=== PATIENT | female | born 1965 | race Asian ===

== ENCOUNTER 2019-03-19 14:26 | Inpatient (IN) | payer BC ==
[~2019-03-19] VITALS: Ht 152.4 cm; Wt 40.8 kg
[~2019-03-19 14:26] MED LIST: ASPI-1182 PO; LINA5TAB PO; LOVA20 PO; METO25 PO; SIMV-259 PO
[2019-03-19] MEDS ORDERED: SODIUM CHLORIDE 0.9% 1,000 ML IV ONE ×3 (15:30→20:00)
[2019-03-19] MEDS ORDERED: ACETAMINOPHEN 325 MG TABLET PO ONE (15:30)
[2019-03-19] MEDS ORDERED: ONDANSETRON HCL 4 MG/2 ML VIAL IVP ONE (15:30)
[2019-03-19 15:35] LABS: GLUCOSE,POINT OF CARE 144 MG/DL (70-110)
[2019-03-19 15:48] LABS: BASOPHILS % (AUTO) 0.3 % (0.0-2.0); EOSINOPHILS % (AUTO) 0.2 % (1.0-6.0); HEMATOCRIT 39.9 % (36-46); HEMOGLOBIN 12.9 g/dL (12.0-16.0); LYMPHOCYTES # (AUTO) 1.7 K/uL (1.0-4.8); LYMPHOCYTES % (AUTO) 20.5 % (22.0-44.0); MEAN CORPUSCULAR HEMOGLOBIN 26.2 pg (26.0-34.0); MEAN CORPUSCULAR HGB CONC 32.2 G/dL (31.0-37.0); MEAN CORPUSCULAR VOLUME 81 fL (80-100); MONOCYTES # (AUTO) 0.6 K/uL (0.1-1.0); MONOCYTES % (AUTO) 7.6 % (2.0-9.0); NEUTROPHILS # (AUTO) 5.8 K/uL (1.8-7.7); NEUTROPHILS % (AUTO) 71.4 % (40.0-70.0); PLATELET COUNT (AUTO) 160 K/uL (150-450); RED BLOOD CELL COUNT(AUTO) 4.92 MIL/uL (4.00-5.20); RED CELL DISTRIBUTION WIDTH 13.7 % (11.5-14.5)
[2019-03-19 16:09] LABS: ALANINE AMINOTRANSFERASE 76 U/L (12-78); ALBUMIN 3.9 g/dL (3.4-5.0); ALKALINE PHOSPHATASE 94 U/L (46-116); ANION GAP 14 mmol/L (8-16); ASPARTATE AMINOTRANSFERASE 50 U/L (15-37); CARBON DIOXIDE 24 mmol/L (22-29); CHLORIDE 105 mmol/L (98-107); CREATININE 0.58 mg/dL (0.60-1.30); GLOMERULAR FILTR. RATE CALC > 60 mL/min (>60); GLUCOSE,RANDOM 161 mg/dL (70-110); LIPASE 72 U/L (73-393); POTASSIUM 4.1 mmol/L (3.5-5.1); SODIUM SERUM 143 mmol/L (136-145); TOTAL PROTEIN, SERUM 7.4 g/dL (6.4-8.2); UREA NITROGEN, BLOOD 15 mg/dL (7-18)
[2019-03-19 16:20] LABS: BILIRUBIN,TOTAL 1.6 mg/dL (0.1-1.0); CALCIUM, TOTAL 10.2 mg/dL (8.8-10.5)
[2019-03-19 17:51] LABS: APPEARANCE,URINE CLEAR (CLEAR); BILIRUBIN,URINE NEGATIVE (NEGATIVE); GLUCOSE, URINE (UA) 100 mg/dL (NEGATIVE); KETONES,URINE >=80 mg/dL (NEGATIVE); LEUKOCYTE ESTERASE ,URINE NEGATIVE (NEGATIVE); NITRATE,URINE NEGATIVE (NEGATIVE); OCCULT BLOOD,URINE TRACE (NEGATIVE); PROTEIN,URINE POS 1+ (NEGATIVE); UROBILINOGEN,URINE 0.2 mg/dL (<=1.0)
[2019-03-19 18:02] LABS: BACTERIA,URINE None Seen /HPF (None Seen); RBC,URINE 0-2 /HPF (0-2); SQUAMOUS EPITHELIAL CELL,UR Moderate /LPF (None Seen); WBC,URINE 0-2 /HPF (0-5)
[2019-03-19 19:25] LABS: THYROID STIMULATING HORMONE < 0.01 uIU/mL (0.36-3.74)
[2019-03-19] MEDS ORDERED: PROPYLTHIOURACIL 50 MG TABLET PO ONE (19:30)
[2019-03-19] MEDS ORDERED: METOPROLOL TARTRATE 5 MG/5 ML VIAL IVP ONE (19:30)
[2019-03-19] MEDS ORDERED: HYDROCORTISONE SOD SUCC 100 MG/2 ML VIAL IVP ONE (19:45)
[2019-03-19] MEDS ORDERED: ONDANSETRON HCL 4 MG/2 ML VIAL IVP PRN (20:00)
[2019-03-19] MEDS ORDERED: ACETAMINOPHEN 325 MG TABLET PO PRN (20:00)
[2019-03-19 22:28] VITALS: BP 158/79
[2019-03-20] VITALS (9 sets, daily range): BP systolic 119–163; BP diastolic 54–99
[2019-03-20] MEDS: METOPROLOL TARTRATE 5 MG/5 ML VIAL IVP PRN ×2 (01:05→09:10)
[2019-03-20] MEDS: POTASSIUM IODIDE 5%/IODINE 10% SOLUTION 14 ML PO SCH ×2 (01:24→09:10)
[2019-03-20 08:41] LABS: GLUCOMETER DEV NAME(LOC) 5N.2; GLUCOSE,POINT OF CARE 98 MG/DL (70-110)
[2019-03-20] MEDS: PROPRANOLOL HCL 60 MG SR CAPSULE PO SCH (12:01)
[2019-03-20 12:21] LABS: GLUCOMETER DEV NAME(LOC) 5N.2; GLUCOSE,POINT OF CARE 132 MG/DL (70-110)
[2019-03-20 19:46] LABS: GLUCOMETER DEV NAME(LOC) 5N.2; GLUCOSE,POINT OF CARE 145 MG/DL (70-110)
[2019-03-20] MEDS: METHIMAZOLE 5 MG TABLET PO SCH (20:52)
[2019-03-21 01:51] LABS: GLUCOMETER DEV NAME(LOC) 5N.1; GLUCOSE,POINT OF CARE 179 MG/DL (70-110)
[2019-03-21 04:55] VITALS: BP 151/68
[2019-03-21 07:09] LABS: BASOPHILS % (AUTO) 0.4 % (0.0-2.0); EOSINOPHILS % (AUTO) 3.5 % (1.0-6.0); HEMATOCRIT 30.2 % (36-46); HEMOGLOBIN 10.5 g/dL (12.0-16.0); LYMPHOCYTES # (AUTO) 3.1 K/uL (1.0-4.8); LYMPHOCYTES % (AUTO) 46.6 % (22.0-44.0); MEAN CORPUSCULAR HEMOGLOBIN 27.8 pg (26.0-34.0); MEAN CORPUSCULAR HGB CONC 34.9 G/dL (31.0-37.0); MEAN CORPUSCULAR VOLUME 80 fL (80-100); MONOCYTES # (AUTO) 0.6 K/uL (0.1-1.0); MONOCYTES % (AUTO) 8.7 % (2.0-9.0); NEUTROPHILS # (AUTO) 2.7 K/uL (1.8-7.7); NEUTROPHILS % (AUTO) 40.8 % (40.0-70.0); PLATELET COUNT (AUTO) 123 K/uL (150-450); RED CELL DISTRIBUTION WIDTH 13.8 % (11.5-14.5)
[2019-03-21 07:34] LABS: ALANINE AMINOTRANSFERASE 101 U/L (12-78); ALBUMIN 2.9 g/dL (3.4-5.0); ALKALINE PHOSPHATASE 73 U/L (46-116); ANION GAP 11 mmol/L (8-16); ASPARTATE AMINOTRANSFERASE 105 U/L (15-37); BILIRUBIN,TOTAL 1.5 mg/dL (0.1-1.0); CALCIUM, TOTAL 9.1 mg/dL (8.8-10.5); CARBON DIOXIDE 24 mmol/L (22-29); CHLORIDE 107 mmol/L (98-107); CREATININE 0.38 mg/dL (0.60-1.30); GLOMERULAR FILTR. RATE CALC > 60 mL/min (>60); GLUCOSE,RANDOM 104 mg/dL (70-110); SODIUM SERUM 142 mmol/L (136-145); TOTAL PROTEIN, SERUM 5.5 g/dL (6.4-8.2); UREA NITROGEN, BLOOD 9 mg/dL (7-18)
[2019-03-21 07:51] VITALS: BP 154/85
[2019-03-21] MEDS: PROPRANOLOL HCL 60 MG SR CAPSULE PO SCH (08:01)
[2019-03-21] MEDS: METHIMAZOLE 5 MG TABLET PO SCH ×2 (08:01→20:58)
[2019-03-21] MEDS ORDERED: MAGNESIUM SULFATE 4 GM/WATER 100 ML IV PRN (08:15)
[2019-03-21] MEDS: POTASSIUM CHLORIDE 20 MEQ ER TABLET PO PRN (08:32)
[2019-03-21 08:35] LABS: GLUCOMETER DEV NAME(LOC) 5N.1; GLUCOSE,POINT OF CARE 94 MG/DL (70-110)
[2019-03-21] MEDS ORDERED: METHIMAZOLE 5 MG TABLET PO SCH (09:00)
[2019-03-21] MEDS ORDERED: SODIUM CHLORIDE 0.9% 100 ML ONE (09:23)
[2019-03-21] MEDS: MAGNESIUM SULFATE 2 GM/WATER 50 ML IV PRN (09:27)
[2019-03-21 11:05] VITALS: BP 157/95
[2019-03-21 13:01] LABS: GLUCOMETER DEV NAME(LOC) 5N.2; GLUCOSE,POINT OF CARE 198 MG/DL (70-110)
[2019-03-21 13:33] VITALS: BP 149/88
[2019-03-21] MEDS ORDERED: PROPRANOLOL HCL 60 MG SR CAPSULE PO ONE (14:00)
[2019-03-21 15:34] VITALS: BP 135/63
[2019-03-21] MEDS ORDERED: AMOX250C4 PO (16:35)
[2019-03-21] MEDS ORDERED: METR500 PO (16:35)
[2019-03-21 17:56] LABS: GLUCOMETER DEV NAME(LOC) 5N.1; GLUCOSE,POINT OF CARE 152 MG/DL (70-110)
[2019-03-21 20:25] VITALS: BP 147/77
[2019-03-22] VITALS (7 sets, daily range): BP systolic 133–158; BP diastolic 63–109
[2019-03-22 07:21] LABS: GLUCOMETER DEV NAME(LOC) 5N.1; GLUCOSE,POINT OF CARE 166 MG/DL (70-110)
[2019-03-22 07:31] LABS: BASOPHILS % (AUTO) 0.7 % (0.0-2.0); EOSINOPHILS % (AUTO) 2.4 % (1.0-6.0); HEMATOCRIT 35.1 % (36-46); HEMOGLOBIN 11.5 g/dL (12.0-16.0); LYMPHOCYTES # (AUTO) 1.9 K/uL (1.0-4.8); LYMPHOCYTES % (AUTO) 36.2 % (22.0-44.0); MEAN CORPUSCULAR HEMOGLOBIN 26.4 pg (26.0-34.0); MEAN CORPUSCULAR HGB CONC 32.9 G/dL (31.0-37.0); MEAN CORPUSCULAR VOLUME 80 fL (80-100); MONOCYTES # (AUTO) 0.5 K/uL (0.1-1.0); MONOCYTES % (AUTO) 9.4 % (2.0-9.0); NEUTROPHILS # (AUTO) 2.7 K/uL (1.8-7.7); NEUTROPHILS % (AUTO) 51.3 % (40.0-70.0); PLATELET COUNT (AUTO) 131 K/uL (150-450); RED BLOOD CELL COUNT(AUTO) 4.38 MIL/uL (4.00-5.20); RED CELL DISTRIBUTION WIDTH 13.7 % (11.5-14.5)
[2019-03-22 07:52] LABS: ALANINE AMINOTRANSFERASE 143 U/L (12-78); ALBUMIN 3.3 g/dL (3.4-5.0); ALKALINE PHOSPHATASE 89 U/L (46-116); ANION GAP 9 mmol/L (8-16); ASPARTATE AMINOTRANSFERASE 93 U/L (15-37); BILIRUBIN,TOTAL 1.9 mg/dL (0.1-1.0); CALCIUM, TOTAL 9.5 mg/dL (8.8-10.5); CARBON DIOXIDE 29 mmol/L (22-29); CHLORIDE 104 mmol/L (98-107); CREATININE 0.38 mg/dL (0.60-1.30); GLOMERULAR FILTR. RATE CALC > 60 mL/min (>60); GLUCOSE,RANDOM 187 mg/dL (70-110); POTASSIUM 3.9 mmol/L (3.5-5.1); SODIUM SERUM 142 mmol/L (136-145); UREA NITROGEN, BLOOD 9 mg/dL (7-18)
[2019-03-22] MEDS: ONDANSETRON HCL 4 MG/2 ML VIAL IVP PRN ×2 (09:04→18:35)
[2019-03-22] MEDS: PROPRANOLOL HCL 80 MG PO SCH (10:26)
[2019-03-22] MEDS: MAGNESIUM SULFATE 2 GM/WATER 50 ML IV PRN (10:26)
[2019-03-22] MEDS: METHIMAZOLE 5 MG TABLET PO SCH ×2 (10:26→20:21)
[2019-03-22 11:26] LABS: GLUCOMETER DEV NAME(LOC) 5N.2; GLUCOSE,POINT OF CARE 166 MG/DL (70-110)
[2019-03-22 20:02] LABS: GLUCOMETER DEV NAME(LOC) 5N.1; GLUCOSE,POINT OF CARE 172 MG/DL (70-110)
[2019-03-22 20:02] LABS: GLUCOMETER DEV NAME(LOC) 5N.1; GLUCOSE,POINT OF CARE 227 MG/DL (70-110)
[2019-03-23 03:57] LABS: GLUCOMETER DEV NAME(LOC) 5N.2; GLUCOSE,POINT OF CARE 171 MG/DL (70-110)
[2019-03-23 05:42] VITALS: BP 185/98
[2019-03-23] MEDS ORDERED: CloNIDine HCL 0.1 MG TABLET PO ONE (06:15)
[2019-03-23 06:21] LABS: BASOPHILS % (AUTO) 0.5 % (0.0-2.0); EOSINOPHILS % (AUTO) 1.8 % (1.0-6.0); HEMOGLOBIN 12.6 g/dL (12.0-16.0); MEAN CORPUSCULAR HEMOGLOBIN 26.2 pg (26.0-34.0); MEAN CORPUSCULAR HGB CONC 32.4 G/dL (31.0-37.0); MEAN CORPUSCULAR VOLUME 81 fL (80-100); MONOCYTES # (AUTO) 1.1 K/uL (0.1-1.0); MONOCYTES % (AUTO) 10.3 % (2.0-9.0); NEUTROPHILS # (AUTO) 5.5 K/uL (1.8-7.7); NEUTROPHILS % (AUTO) 50.4 % (40.0-70.0); PLATELET COUNT (AUTO) 157 K/uL (150-450); RED BLOOD CELL COUNT(AUTO) 4.81 MIL/uL (4.00-5.20); RED CELL DISTRIBUTION WIDTH 13.7 % (11.5-14.5)
[2019-03-23 07:07] LABS: GLUCOMETER DEV NAME(LOC) 5N.1; GLUCOSE,POINT OF CARE 178 MG/DL (70-110)
[2019-03-23 07:16] LABS: ALANINE AMINOTRANSFERASE 210 U/L (12-78); ALBUMIN 3.7 g/dL (3.4-5.0); ALKALINE PHOSPHATASE 101 U/L (46-116); ANION GAP 12 mmol/L (8-16); ASPARTATE AMINOTRANSFERASE 142 U/L (15-37); CARBON DIOXIDE 27 mmol/L (22-29); CHLORIDE 102 mmol/L (98-107); CREATININE 0.47 mg/dL (0.60-1.30); GLOMERULAR FILTR. RATE CALC > 60 mL/min (>60); GLUCOSE,RANDOM 156 mg/dL (70-110); POTASSIUM 3.2 mmol/L (3.5-5.1); SODIUM SERUM 141 mmol/L (136-145); TOTAL PROTEIN, SERUM 6.6 g/dL (6.4-8.2); UREA NITROGEN, BLOOD 12 mg/dL (7-18)
[2019-03-23 07:37] VITALS: BP 143/73
[2019-03-23] MEDS: MAGNESIUM OXIDE 400 MG TABLET PO PRN ×3 (08:57→23:47)
[2019-03-23] MEDS: POTASSIUM CHLORIDE 20 MEQ ER TABLET PO PRN (08:57)
[2019-03-23] MEDS: METHIMAZOLE 5 MG TABLET PO SCH ×2 (08:57→20:24)
[2019-03-23] MEDS: PROPRANOLOL HCL 80 MG PO SCH (08:57)
[2019-03-23] MEDS: POTASSIUM CHL 10 MEQ/WATER 50 ML IV PRN ×3 (09:15→13:59)
[2019-03-23 10:57] VITALS: BP 137/96
[2019-03-23 11:41] LABS: PHOSPHORUS 4.1 mg/dL (2.5-4.9)
[2019-03-23] MEDS ORDERED: AMOX500C2 PO (12:53)
[2019-03-23 13:06] LABS: GLUCOMETER DEV NAME(LOC) 5N.2; GLUCOSE,POINT OF CARE 225 MG/DL (70-110)
[2019-03-23 15:23] VITALS: BP 149/90
[2019-03-23 17:57] LABS: GLUCOMETER DEV NAME(LOC) 5N.2; GLUCOSE,POINT OF CARE 213 MG/DL (70-110)
[2019-03-23 19:50] VITALS: BP 137/74
[2019-03-24 00:23] VITALS: BP 143/69
[2019-03-24 05:30] VITALS: BP 173/85
[2019-03-24 06:22] LABS: BASOPHILS % (AUTO) 0.4 % (0.0-2.0); EOSINOPHILS % (AUTO) 2.2 % (1.0-6.0); HEMATOCRIT 36.9 % (36-46); HEMOGLOBIN 11.9 g/dL (12.0-16.0); LYMPHOCYTES # (AUTO) 3.7 K/uL (1.0-4.8); LYMPHOCYTES % (AUTO) 51.2 % (22.0-44.0); MEAN CORPUSCULAR HEMOGLOBIN 26.1 pg (26.0-34.0); MEAN CORPUSCULAR HGB CONC 32.3 G/dL (31.0-37.0); MEAN CORPUSCULAR VOLUME 81 fL (80-100); MONOCYTES # (AUTO) 0.6 K/uL (0.1-1.0); NEUTROPHILS # (AUTO) 2.7 K/uL (1.8-7.7); NEUTROPHILS % (AUTO) 38.2 % (40.0-70.0); PLATELET COUNT (AUTO) 139 K/uL (150-450); RED BLOOD CELL COUNT(AUTO) 4.55 MIL/uL (4.00-5.20); RED CELL DISTRIBUTION WIDTH 13.6 % (11.5-14.5)
[2019-03-24] MEDS ORDERED: AmLODIPine BESYLATE 2.5 MG TABLET PO ONE (07:00)
[2019-03-24 07:02] LABS: ALANINE AMINOTRANSFERASE 159 U/L (12-78); ALBUMIN 3.4 g/dL (3.4-5.0); ALKALINE PHOSPHATASE 91 U/L (46-116); ANION GAP 7 mmol/L (8-16); ASPARTATE AMINOTRANSFERASE 70 U/L (15-37); BILIRUBIN,TOTAL 1.7 mg/dL (0.1-1.0); CARBON DIOXIDE 30 mmol/L (22-29); CHLORIDE 103 mmol/L (98-107); CREATININE 0.48 mg/dL (0.60-1.30); GLOMERULAR FILTR. RATE CALC > 60 mL/min (>60); GLUCOSE,RANDOM 166 mg/dL (70-110); POTASSIUM 3.3 mmol/L (3.5-5.1); SODIUM SERUM 140 mmol/L (136-145); TOTAL PROTEIN, SERUM 6.3 g/dL (6.4-8.2); UREA NITROGEN, BLOOD 8 mg/dL (7-18)
[2019-03-24 07:32] VITALS: BP 169/74
[2019-03-24] MEDS: POTASSIUM CHLORIDE 20 MEQ ER TABLET PO PRN (08:06)
[2019-03-24] MEDS: MAGNESIUM OXIDE 400 MG TABLET PO PRN ×3 (08:06→13:33)
[2019-03-24] MEDS: METHIMAZOLE 5 MG TABLET PO SCH (08:07)
[2019-03-24] MEDS ORDERED: PROPRANOLOL HCL 60 MG SR CAPSULE PO SCH (09:00)
[2019-03-24] MEDS ORDERED: PROP60SR PO (10:34)
[2019-03-24] MEDS ORDERED: METHI10 PO (10:34)
[2019-03-24] MEDS ORDERED: AMLO2.5T4 PO (10:34)
[2019-03-24 10:55] VITALS: BP 180/92
[2019-03-24] MEDS: METOPROLOL TARTRATE 5 MG/5 ML VIAL IVP PRN (10:57)
[2019-03-24 11:33] VITALS: BP 172/84
[2019-03-24 12:33] VITALS: BP 132/75
[2019-03-24] MEDS ORDERED: LinaGLIPtin 5 MG TABLET PO ONE (12:45)
[2019-03-24 20:46] LABS: GLUCOMETER DEV NAME(LOC) 5N.2; GLUCOSE,POINT OF CARE 154 MG/DL (70-110)
[2019-03-24 20:46] LABS: GLUCOMETER DEV NAME(LOC) 5N.2; GLUCOSE,POINT OF CARE 221 MG/DL (70-110)
[2019-03-24 20:46] LABS: GLUCOMETER DEV NAME(LOC) 5N.2; GLUCOSE,POINT OF CARE 185 MG/DL (70-110)
== END 2019-03-24 13:45 | disposition home or self-care (01) | DRG 644 ==
LOC: EMS 14:27 → 5S 20:00 → 5N 03-20 17:15
PROVIDERS: ADMIT Internal Medicine; ATTEND Internal Medicine
DX: E05.91 Thyrotoxicosis, unspecified with thyrotoxic crisis or storm (principal); E44.0 Moderate protein-calorie malnutrition; E11.9 Type 2 diabetes mellitus without complications; I10 Essential (primary) hypertension; E78.5 Hyperlipidemia, unspecified; E87.6 Hypokalemia; E83.42 Hypomagnesemia; Z90.710 Acquired absence of both cervix and uterus; E78.00 Pure hypercholesterolemia, unspecified; F41.9 Anxiety disorder, unspecified; D64.9 Anemia, unspecified; R00.0 Tachycardia, unspecified
CPT/HCPCS: 74176; 82948; 83735; 84100; 84132; 84439; 84443; 84445; 84481; 86376; 87081; 92610; 93005; 93306; J1720; J2405; J3475; J3480; J3490; J7030; J7050

== ENCOUNTER 2019-03-26 07:15 | Day surgery (SDC) | payer BC ==
[~2019-03-26] VITALS: Ht 152.4 cm; Wt 39.0 kg
[~2019-03-26 07:15] MED LIST changes: +AMLO2.5T4 PO; +METHI10 PO; -METO25 PO; +PROP60SR PO
[2019-03-26] MEDS ORDERED: METOPROLOL TARTRATE 5 MG/5 ML VIAL ONE (07:38)
[2019-03-26] MEDS ORDERED: METOPROLOL TARTRATE 50 MG TABLET ONE (07:38)
[2019-03-26] MEDS ORDERED: METOPROLOL TARTRATE 5 MG/5 ML VIAL IVP ONE (07:45)
[2019-03-26] MEDS ORDERED: METOPROLOL TARTRATE 50 MG TABLET PO ONE (07:45)
[2019-03-26 08:35] LABS: GLUCOMETER DEV NAME(LOC) SDS.; GLUCOSE,POINT OF CARE 167 MG/DL (70-110)
[2019-03-26] MEDS ORDERED: PROPRANOLOL HCL 80 MG PO ONE (08:45)
[2019-03-26] MEDS ORDERED: METHIMAZOLE 10 MG TABLET PO ONE (08:45)
[2019-03-26] MEDS ORDERED: PROPRANOLOL HCL 60 MG SR CAPSULE PO ONE (08:45)
== END 2019-03-26 09:25 | disposition home or self-care (01) ==
LOC: SURGERY 07:15 → EDSTATUS 09:00 → SURGERY 09:25
PROVIDERS: ATTEND Internal Medicine Cardiovascular Disease
DX: E11.9 Type 2 diabetes mellitus without complications (principal); I20.9 Angina pectoris, unspecified; I10 Essential (primary) hypertension; E05.90 Thyrotoxicosis, unspecified without thyrotoxic crisis or storm; Z79.899 Other long term (current) drug therapy; Z98.51 Tubal ligation status; Z53.8 Procedure and treatment not carried out for other reasons
CPT/HCPCS: 82962; 93005; J3490

== ENCOUNTER 2024-06-15 11:11 | Inpatient (IN) | payer BC, OTHER ==
[~2024-06-15] VITALS: Ht 152.4 cm; Wt 62.8 kg
[~2024-06-15 11:11] MED LIST changes: -AMLO2.5T4 PO; +AMLO2.5T96 PO; -ASPI-1182 PO; +ASPI-1444 PO; -LOVA20 PO; +LOVA20TA73 PO; +METH-387 PO; -METHI10 PO; +PROP60CA31 PO; -PROP60SR PO
[2024-06-15 11:38] LABS: COVID AG,FIA SOURCE NASAL SWAB
[2024-06-15 12:24] LABS: HEMATOCRIT 48.4 % (36-46); HEMOGLOBIN 15.4 g/dL (12.0-16.0); MEAN CORPUSCULAR HGB CONC 31.9 G/dL (31.0-37.0); MEAN CORPUSCULAR VOLUME 88 fL (80-100); PLATELET COUNT (AUTO) 127 K/uL (150-450); RED BLOOD CELL COUNT(AUTO) 5.51 MIL/uL (4.00-5.20); RED CELL DISTRIBUTION WIDTH 13.6 % (11.5-14.5); WHITE BLOOD COUNT (AUTO) 7.5 K/uL (4.5-11.0)
[2024-06-15 12:36] LABS: ANION GAP 29 mmol/L (8-16); CARBON DIOXIDE 14 mmol/L (22-29); CHLORIDE 82 mmol/L (98-107); CREATININE 2.01 mg/dL (0.60-1.30); GLOMERULAR FILTR. RATE CALC 25 mL/min (>60); LIPASE 11 U/L (16-77); SODIUM SERUM 125 mmol/L (136-145); UREA NITROGEN, BLOOD 28 mg/dL (7-18)
[2024-06-15 12:37] LABS: SARS-COV2 (COVID) ANTIGEN,FIA Negative (Negative)
[2024-06-15 12:38] LABS: INFLUENZA TYPE B NEGATIVE FOR TYPE B (NEGATIVE)
[2024-06-15 12:39] LABS: GLUCOSE,RANDOM 488 mg/dL (70-110); POTASSIUM 2.7 mmol/L (3.5-5.1)
[2024-06-15 12:42] LABS: BAND NEUTROPHILS % (MANUAL) 12 % (0-5); LYMPHOCYTES % (MANUAL) 24 % (22-44); MONOCYTES % (MANUAL) 1 % (2-9); RBC MORPHOLOGY COMMENT NORMAL RBC MORPH; SEGMENTED NEUTROPHILS % 63 % (40-70); TOTAL CELLS COUNTED 100
[2024-06-15 12:43] LABS: INFLUENZA TYPE A POSITIVE FOR TYPE A (NEGATIVE)
[2024-06-15] MEDS ORDERED: POTASSIUM CHLORIDE 40 MEQ in SODIUM CHLORIDE 0.9% 1,000 ML IV ONE (12:45)
[2024-06-15] MEDS ORDERED: INSULIN REGULAR, HUMAN 100 UNITS/ML IVP PRN (13:00)
[2024-06-15] MEDS ORDERED: SODIUM CHLORIDE 0.45% 1,000 ML IV PRN (13:00)
[2024-06-15] MEDS: SODIUM CHLORIDE 0.9% 1,000 ML IV SCH (13:00)
[2024-06-15] MEDS ORDERED: DEXTROSE 50%-WATER 25 GM/50 ML SYRINGE IVP PRN ×2 (13:00)
[2024-06-15] MEDS ORDERED: INSULIN LISPRO 100 UNITS/ML SQ PRN (13:00)
[2024-06-15] MEDS ORDERED: 0.9% SODIUM CHLORIDE 10 ML SYRINGE IVP PRN (13:00)
[2024-06-15] MEDS ORDERED: POTASSIUM CHL 20 MEQ/0.45% NS 1,000 ML IV PRN (13:00)
[2024-06-15 13:02] LABS: ACETONE,BLOOD TRACE (NEGATIVE)
[2024-06-15] MEDS: *CLINICAL-RX DOSING [ENTER DRUG IN COMMENTS] CLINICAL ONE (13:47)
[2024-06-15] MEDS: METOPROLOL TARTRATE 5 MG/5 ML VIAL IVP ONE (13:54)
[2024-06-15] MEDS: SODIUM CHLORIDE 0.9% 1,600 ML IV ONE (13:58)
[2024-06-15] MEDS: CefTRIAXone 1 GM/DEXTROSE 50 ML IV ONE (14:00)
[2024-06-15] MEDS ORDERED: AZITHROMYCIN 500 MG/NS 250 ML IV SCH (14:00)
[2024-06-15 14:11] LABS: FREE T4 (FREE THYROXINE) 1.85 ng/dL (0.76-1.46)
[2024-06-15] MEDS: OSELTAMIVIR PHOSPHATE 30 MG CAPSULE PO SCH (14:19)
[2024-06-15] MEDS: POTASSIUM CHL 10 MEQ/WATER 50 ML IV SCH (14:19)
[2024-06-15 14:52] LABS: APPEARANCE,URINE HAZY (CLEAR); BILIRUBIN,URINE NEGATIVE (NEGATIVE); COLOR,URINE LIGHT YELLOW (YELLOW); GLUCOSE, URINE (UA) >=1000 mg/dL (NEGATIVE); LEUKOCYTE ESTERASE ,URINE NEGATIVE (NEGATIVE); NITRATE,URINE NEGATIVE (NEGATIVE); OCCULT BLOOD,URINE SMALL (NEGATIVE); PH,URINE 5.5 (5.0-8.0); PROTEIN,URINE 100-200,SEE CONFIRM mg/dL (NEGATIVE); SPECIFIC GRAVITIY, URINE 1.011 (1.003-1.030); UROBILINOGEN,URINE <=1.0 mg/dL (<=1.0)
[2024-06-15 14:55] LABS: CREATININE,URINE RANDOM 44.2 mg/dL (30.0-125.0)
[2024-06-15 14:56] LABS: SULFOSALICYLIC ACID,URINE 2+ (Negative)
[2024-06-15 15:00] LABS: HEMOGLOBIN A1C 13.6 % (3.8-5.6)
[2024-06-15] MEDS: ACETAMINOPHEN 325 MG TABLET PO PRN (15:01)
[2024-06-15 15:03] LABS: RBC,URINE 0-2 /HPF (0-2); WBC,URINE None Seen /HPF (0-5)
[2024-06-15 15:04] LABS: BACTERIA,URINE None Seen /HPF (None Seen); SQUAMOUS EPITHELIAL CELL,UR Few /LPF (None Seen)
[2024-06-15 15:05] LABS: TROPONIN I-HIGH SENSITIVITY 27 ng/L (<51)
[2024-06-15] MEDS ORDERED: SODIUM CHLORIDE 0.9% 250 ML IV ONE (15:06)
[2024-06-15 15:08] LABS: ALANINE AMINOTRANSFERASE 15 U/L (12-78); ALBUMIN 2.2 g/dL (3.4-5.0); ALKALINE PHOSPHATASE 68 U/L (46-116); ANION GAP 21 mmol/L (8-16); ASPARTATE AMINOTRANSFERASE 19 U/L (15-37); BILIRUBIN,TOTAL 0.9 mg/dL (0.1-1.0); CALCIUM, TOTAL 8.1 mg/dL (8.8-10.5); CARBON DIOXIDE 18 mmol/L (22-29); CHLORIDE 89 mmol/L (98-107); CREATININE 1.68 mg/dL (0.60-1.30); GLOMERULAR FILTR. RATE CALC 31 mL/min (>60); LACTATE DEHYDROGENASE 292 U/L (81-234); LACTIC ACID 7.7 mmol/L (0.4-2.0); POTASSIUM 3.3 mmol/L (3.5-5.1); SODIUM SERUM 128 mmol/L (136-145); T4 (THYROXINE) 7.6 mcg/dL (4.7-13.3); THYROID STIMULATING HORMONE 0.14 uIU/mL (0.36-3.74); TOTAL PROTEIN, SERUM 6.3 g/dL (6.4-8.2); UREA NITROGEN, BLOOD 26 mg/dL (7-18)
[2024-06-15 15:10] LABS: GLUCOSE,RANDOM 430 mg/dL (70-110)
[2024-06-15] MEDS: *CLINICAL-CEFEPIME DOSING CLINICAL ONE (15:28)
[2024-06-15 15:35] VITALS: PULSE 139; RESP 44; O2SAT 97
[2024-06-15] MEDS: INSULIN REGULAR, HUMAN 100 UNITS/ML IVP ONE (15:47)
[2024-06-15] MEDS: INSULIN REGULAR, HUMAN 100 UNITS in SODIUM CHLORIDE 0.9% 99 ML IV PRN (15:47)
[2024-06-15] MEDS: SODIUM CHLORIDE 0.9% 250 ML IV ONE (15:48)
[2024-06-15 16:00] VITALS: BP 161/71; PULSE 143; PULSE 43; RESP 43; TEMP 102.8; O2SAT 98
[2024-06-15] MEDS: POTASSIUM CHLORIDE 40 MEQ in SODIUM CHLORIDE 0.45% 1,000 ML IV PRN (16:05)
[2024-06-15 16:24] LABS: ABG BASE EXCESS -11.5 mmol/L (-2.0-3.0); ABG CARBOXYHEMOGLOBIN 0.2 % (0.5-1.5); ABG HCO3 17.1 mmol/L (21.0-28.0); ABG METHEMOGLOBIN 0.2 % (0.0-1.5); ABG OXYGEN CONTENT 18.8 mL/dL (15.0-23.0); ABG OXYGEN SATURATION 95.6 % (94.0-98.0); ABG OXYHEMOGLOBIN 95.2 % (94.0-98.0); ABG PCO2 24 mmHg (32.0-45.0); ABG PH 7.366 (7.350-7.450); PO2, ARTERIAL BG 95.5 mmHg (83.0-108.0); SOURCE, BLOOD GAS ARTERIAL; TEMPERATURE, FAHRENHEIT, BG 102.6 FAHREN (96.0-98.6)
[2024-06-15] MEDS ORDERED: ETOMIDATE 2 MG/ML 10 ML VIAL ONE (16:32)
[2024-06-15 17:00] VITALS: PULSE 154; RESP 17; O2SAT 93
[2024-06-15 17:21] LABS: ALLEN TEST, BLOOD GAS Positive; O2 DEVICE,BLOOD GAS BIPAP (ROOM AIR); SITE, BLOOD GAS LFT RADIAL
[2024-06-15 17:22] LABS: INSPIRATORY TIME, BG 0.9 SEC; SPONTANEOUS VT, BG 388 ml
[2024-06-15] MEDS: ETOMIDATE 2 MG/ML 10 ML VIAL IVP ONE (17:58)
[2024-06-15] MEDS: FentaNYL CIT 1000MCG/0.9% NACL 100 ML IV PRN (18:02)
[2024-06-15] MEDS: ROCURONIUM BROMIDE 10 MG/ML 5 ML VIAL IVP ONE (18:17)
[2024-06-15] MEDS: PROPOFOL 1000 MG/ISO-OSM 100 ML IV PRN (18:18)
[2024-06-15] MEDS: DEXTROSE 5%-0.45% SODIUM CHL 1,000 ML IV PRN (19:37)
[2024-06-15 19:40] VITALS: PULSE 144; RESP 35; O2SAT 94
[2024-06-15 19:54] LABS: ABG BASE EXCESS -11.4 mmol/L (-2.0-3.0); ABG CARBOXYHEMOGLOBIN 0.4 % (0.5-1.5); ABG HCO3 16.1 mmol/L (21.0-28.0); ABG METHEMOGLOBIN 0.2 % (0.0-1.5); ABG OXYGEN CONTENT 19.3 mL/dL (15.0-23.0); ABG OXYGEN SATURATION 93.7 % (94.0-98.0); ABG OXYHEMOGLOBIN 93.1 % (94.0-98.0); ABG PCO2 42 mmHg (32.0-45.0); ABG TOTAL HEMOGLOBIN 14.7 G/dL (12.0-16.0); PO2, ARTERIAL BG 87.4 mmHg (83.0-108.0); SOURCE, BLOOD GAS ARTERIAL; TEMPERATURE, FAHRENHEIT, BG 101.8 FAHREN (96.0-98.6)
[2024-06-15 20:00] VITALS: BP 109/52; PULSE 141; RESP 35; TEMP 101.6; O2SAT 92
[2024-06-15] MEDS: SODIUM BICARBONATE [ADULT] 8.4% 50 MEQ/50 ML SYRINGE IVP ONE (20:15)
[2024-06-15] MEDS: POTASSIUM CHLORIDE 10% 40 MEQ/30 ML LIQUID UDCUP GT ONE (20:36)
[2024-06-15 20:54] LABS: CALCIUM, TOTAL 7.8 mg/dL (8.8-10.5); CREATININE 2.01 mg/dL (0.60-1.30); MAGNESIUM 1.8 mg/dL (1.80-2.40); PHOSPHORUS 2.9 mg/dL (2.5-4.9); POTASSIUM 3.1 mmol/L (3.5-5.1)
[2024-06-15] MEDS ORDERED: DOCUSATE SODIUM 100 MG CAPSULE PO SCH (21:00)
[2024-06-15] MEDS ORDERED: METHIMAZOLE 10 MG TABLET PO SCH (21:00)
[2024-06-15 21:16] LABS: GLUCOMETER DEV NAME(LOC) ICUN.5; GLUCOSE,POINT OF CARE 232 MG/DL (70-110)
[2024-06-15 21:27] LABS: ABG A-A DIFF O2 578.8 mmHg (10-20.0); ALLEN TEST, BLOOD GAS Positive; O2 DEVICE,BLOOD GAS VENT (ROOM AIR); SITE, BLOOD GAS LFT RADIAL
[2024-06-15 21:28] LABS: PEEP,BG 8 cm H2O; VT, ABG 325 ml
[2024-06-15] MEDS: CHLORHEXIDINE GLUCONATE 2% TOWELETTE [2'S/6'S] TP SCH (21:54)
[2024-06-15] MEDS: DOCUSATE SODIUM 100 MG/10 ML LIQUID UDCUP NG SCH (21:54)
[2024-06-15] MEDS: POTASSIUM CHLORIDE 10% 40 MEQ/30 ML LIQUID UDCUP NG ONE (21:56)
[2024-06-15 22:19] LABS: ABG BASE EXCESS -8.5 mmol/L (-2.0-3.0); ABG CARBOXYHEMOGLOBIN 0.1 % (0.5-1.5); ABG HCO3 18.2 mmol/L (21.0-28.0); ABG METHEMOGLOBIN 0.2 % (0.0-1.5); ABG OXYGEN CONTENT 18.1 mL/dL (15.0-23.0); ABG OXYGEN SATURATION 90.2 % (94.0-98.0); ABG OXYHEMOGLOBIN 89.9 % (94.0-98.0); ABG PCO2 38 mmHg (32.0-45.0); ABG PH 7.294 (7.350-7.450); ABG TOTAL HEMOGLOBIN 14.3 G/dL (12.0-16.0); PO2, ARTERIAL BG 67.7 mmHg (83.0-108.0); SOURCE, BLOOD GAS ARTERIAL; TEMPERATURE, FAHRENHEIT, BG 101.4 FAHREN (96.0-98.6)
[2024-06-15 22:20] VITALS: PULSE 133; RESP 36; O2SAT 90
[2024-06-15] MEDS: DOXYCYCLINE HYCLATE 100 MG in DEXTROSE 5%-WATER 100 ML IV SCH (22:27)
[2024-06-15] MEDS: CEFTAROLINE FOSAMIL 300 MG in DEXTROSE 5%-WATER 150 ML IV ONE (22:28)
[2024-06-15] MEDS: *CLINICAL-CEFTAROLINE DOSING CLINICAL ONE (22:29)
[2024-06-15 22:38] LABS: ALLEN TEST, BLOOD GAS Positive; SITE, BLOOD GAS RT RADIAL
[2024-06-15 22:39] LABS: O2 DEVICE,BLOOD GAS VENT (ROOM AIR); VT, ABG 325 ml
[2024-06-15 22:40] LABS: PEEP,BG 8 cm H2O
[2024-06-15] MEDS: NOREPINEPHRINE 8 MG/0.9 % NACL 250 ML IV PRN (22:49)
[2024-06-15] MEDS ORDERED: CISATRACURIUM BESYLATE 2 MG/ML 10 ML VIAL IVP ONE (23:15)
[2024-06-15 23:25] LABS: CALCIUM, TOTAL 7.9 mg/dL (8.8-10.5); CREATININE 1.98 mg/dL (0.60-1.30); MAGNESIUM 1.6 mg/dL (1.80-2.40); PHOSPHORUS 2.4 mg/dL (2.5-4.9); POTASSIUM 3.6 mmol/L (3.5-5.1)
[2024-06-15] MEDS ORDERED: MAGNESIUM SULFATE 4 GM/WATER 100 ML IV ONE (23:45)
[2024-06-15 23:50] LABS: ABG BASE EXCESS -8.3 mmol/L (-2.0-3.0); ABG CARBOXYHEMOGLOBIN 0.2 % (0.5-1.5); ABG HCO3 18.3 mmol/L (21.0-28.0); ABG METHEMOGLOBIN 0.1 % (0.0-1.5); ABG OXYGEN CONTENT 18.2 mL/dL (15.0-23.0); ABG OXYGEN SATURATION 92.1 % (94.0-98.0); ABG OXYHEMOGLOBIN 91.8 % (94.0-98.0); ABG PCO2 41 mmHg (32.0-45.0); ABG PH 7.276 (7.350-7.450); ABG TOTAL HEMOGLOBIN 14.1 G/dL (12.0-16.0); PO2, ARTERIAL BG 72.5 mmHg (83.0-108.0); SOURCE, BLOOD GAS ARTERIAL; TEMPERATURE, FAHRENHEIT, BG 101.2 FAHREN (96.0-98.6)
[2024-06-15 23:55] LABS: ABG A-A DIFF O2 596.1 mmHg (10-20.0); ALLEN TEST, BLOOD GAS Positive; O2 DEVICE,BLOOD GAS VENT (ROOM AIR); PEEP,BG 12 cm H2O; SITE, BLOOD GAS RT RADIAL; VT, ABG 325 ml
[2024-06-16] VITALS (14 sets, daily range): BP systolic 114–171; BP diastolic 25–86; PULSE 116–135; RESP 27–34; TEMP 99.2–101.1; O2SAT 91–100
[2024-06-16] MEDS: CISATRACURIUM BESYLATE 2 MG/ML 10 ML VIAL IVP ONE
[2024-06-16] MEDS: MAGNESIUM SULFATE 3 GM in DEXTROSE 5%-WATER 100 ML IV ONE (00:06)
[2024-06-16] MEDS: SODIUM PHOS,M-BASIC-D-BASIC 20 MEQ in DEXTROSE 5%-WATER 100 ML IV ONE (00:06)
[2024-06-16] MEDS: INSULIN GLARGINE,HUM.REC.ANLOG 100 UNITS/ML SQ ONE (00:10)
[2024-06-16] MEDS: HEPARIN SODIUM,PORCINE 5,000 UNITS/ML VIAL SQ SCH (00:11)
[2024-06-16] MEDS ORDERED: SODIUM CHLORIDE 0.9% 500 ML IV ONE (01:50)
[2024-06-16] MEDS: LABETALOL HCL 5 MG/ML 20 ML VIAL IVP ONE (02:03)
[2024-06-16] MEDS: VASOPRESSIN 40 UNITS in DEXTROSE 5%-WATER 98 ML IV PRN (02:09)
[2024-06-16 02:19] LABS: CALCIUM, TOTAL 7.5 mg/dL (8.8-10.5); CREATININE 2.25 mg/dL (0.60-1.30); POTASSIUM 3.9 mmol/L (3.5-5.1)
[2024-06-16] MEDS ORDERED: CEFEPIME HCL 1 GM in DEXTROSE 5%-WATER 50 ML IV SCH (03:00)
[2024-06-16] MEDS: *CLINICAL-MEROPENEM DOSING CLINICAL ONE (03:46)
[2024-06-16 04:11] LABS: CALCIUM, TOTAL 7.9 mg/dL (8.8-10.5); CREATININE 2.17 mg/dL (0.60-1.30); MAGNESIUM 2.2 mg/dL (1.80-2.40); POTASSIUM 3.9 mmol/L (3.5-5.1)
[2024-06-16] MEDS: MIDAZOLAM HCL 2 MG/2 ML VIAL IVP ONE (04:56)
[2024-06-16 05:43] LABS: HEMATOCRIT 41.6 % (36-46); HEMOGLOBIN 13.7 g/dL (12.0-16.0); MEAN CORPUSCULAR HEMOGLOBIN 28.1 pg (26.0-34.0); MEAN CORPUSCULAR HGB CONC 32.9 G/dL (31.0-37.0); MEAN CORPUSCULAR VOLUME 85 fL (80-100); PLATELET COUNT (AUTO) 145 K/uL (150-450); RED BLOOD CELL COUNT(AUTO) 4.88 MIL/uL (4.00-5.20); RED CELL DISTRIBUTION WIDTH 13.7 % (11.5-14.5); WHITE BLOOD COUNT (AUTO) 13.2 K/uL (4.5-11.0)
[2024-06-16] MEDS: PHENYLEPHRINE 200 MG/D5%-WATER 250 ML IV PRN (05:44)
[2024-06-16 05:47] LABS: CALCIUM, TOTAL 7.7 mg/dL (8.8-10.5); CREATININE 2.06 mg/dL (0.60-1.30); MAGNESIUM 2.5 mg/dL (1.80-2.40); POTASSIUM 3.7 mmol/L (3.5-5.1)
[2024-06-16 05:50] LABS: BAND NEUTROPHILS % (MANUAL) 0 % (0-5)
[2024-06-16] MEDS: INSULIN LISPRO 100 UNITS/ML SQ PRN (06:02)
[2024-06-16] MEDS: MEROPENEM 500 MG in SODIUM CHLORIDE 0.9% 50 ML IV SCH (06:07)
[2024-06-16 06:13] LABS: LYMPHOCYTES % (MANUAL) 5 % (22-44); MONOCYTES % (MANUAL) 9 % (2-9); SEGMENTED NEUTROPHILS % 86 % (40-70); TOTAL CELLS COUNTED 100
[2024-06-16 06:25] LABS: PHOSPHORUS 5.6 mg/dL (2.5-4.9)
[2024-06-16 07:51] LABS: GLUCOMETER DEV NAME(LOC) ICU.S6; GLUCOSE,POINT OF CARE 153 MG/DL (70-110)
[2024-06-16 07:51] LABS: GLUCOMETER DEV NAME(LOC) ICU.S6; GLUCOSE,POINT OF CARE 88 MG/DL (70-110)
[2024-06-16 07:51] LABS: GLUCOMETER DEV NAME(LOC) ICU.S6; GLUCOSE,POINT OF CARE 98 MG/DL (70-110)
[2024-06-16 07:51] LABS: GLUCOMETER DEV NAME(LOC) ICU.S6; GLUCOSE,POINT OF CARE 106 MG/DL (70-110)
[2024-06-16 07:51] LABS: GLUCOMETER DEV NAME(LOC) ICU.S6; GLUCOSE,POINT OF CARE 179 MG/DL (70-110)
[2024-06-16 07:51] LABS: GLUCOMETER DEV NAME(LOC) ICU.S6; GLUCOSE,POINT OF CARE 131 MG/DL (70-110)
[2024-06-16 07:51] LABS: GLUCOMETER DEV NAME(LOC) ICU.S6; GLUCOSE,POINT OF CARE 388 MG/DL (70-110)
[2024-06-16 07:51] LABS: GLUCOMETER DEV NAME(LOC) ICU.S6; GLUCOSE,POINT OF CARE 105 MG/DL (70-110)
[2024-06-16 07:51] LABS: GLUCOMETER DEV NAME(LOC) ICU.S6; GLUCOSE,POINT OF CARE 300 MG/DL (70-110)
[2024-06-16] MEDS: METHIMAZOLE 10 MG TABLET NG SCH ×2 (08:21→21:08)
[2024-06-16] MEDS: ASPIRIN 81 MG CHEWABLE TABLET PO SCH (08:22)
[2024-06-16] MEDS: MIDAZOLAM HCL 100 MG in SODIUM CHLORIDE 0.9% 180 ML IV PRN (09:12)
[2024-06-16 10:43] LABS: ABG BASE EXCESS -12.2 mmol/L (-2.0-3.0); ABG CARBOXYHEMOGLOBIN 0.2 % (0.5-1.5); ABG METHEMOGLOBIN 0.3 % (0.0-1.5); ABG OXYGEN CONTENT 21.7 mL/dL (15.0-23.0); ABG OXYHEMOGLOBIN 98.5 % (94.0-98.0); ABG PCO2 35 mmHg (32.0-45.0); ABG PH 7.252 (7.350-7.450); ABG TOTAL HEMOGLOBIN 15.5 G/dL (12.0-16.0); PO2, ARTERIAL BG 164.5 mmHg (83.0-108.0); SOURCE, BLOOD GAS ARTERIAL
[2024-06-16 10:44] LABS: ABG A-A DIFF O2 511.7 mmHg (10-20.0); O2 DEVICE,BLOOD GAS VENTILATOR (ROOM AIR); PEEP,BG 12 cm H2O; SITE, BLOOD GAS RT FEMORAL; VT, ABG 325 ml
[2024-06-16] MEDS: CISATRACURIUM BESYLATE 100 MG in DEXTROSE 5%-WATER 240 ML IV PRN (10:53)
[2024-06-16 12:46] LABS: LACTIC ACID 2.7 mmol/L (0.4-2.0)
[2024-06-16] MEDS ORDERED: DOPamine 800MG/D5W[DOUBLE] 250 ML IV PRN (14:15)
[2024-06-16] MEDS ORDERED: CefTRIAXone 1 GM/DEXTROSE 50 ML IV SCH (15:00)
[2024-06-16] MEDS: ALBUMIN HUMAN 25%-25GM/100ML 100 ML IV SCH (15:17)
[2024-06-16] MEDS: HYDROCORTISONE SOD SUCC 100 MG/2 ML VIAL IVP SCH (15:18)
[2024-06-16 15:29] LABS: HEMOGLOBIN 15.1 g/dL (12.0-16.0); MEAN CORPUSCULAR HEMOGLOBIN 27.7 pg (26.0-34.0); MEAN CORPUSCULAR HGB CONC 32.1 G/dL (31.0-37.0); MEAN CORPUSCULAR VOLUME 86 fL (80-100); PLATELET COUNT (AUTO) 125 K/uL (150-450); RED BLOOD CELL COUNT(AUTO) 5.46 MIL/uL (4.00-5.20); WHITE BLOOD COUNT (AUTO) 26.6 K/uL (4.5-11.0)
[2024-06-16 15:57] LABS: BAND NEUTROPHILS % (MANUAL) 10 % (0-5); LYMPHOCYTES % (MANUAL) 7 % (22-44); MONOCYTES % (MANUAL) 8 % (2-9); SEGMENTED NEUTROPHILS % 75 % (40-70); TOTAL CELLS COUNTED 100
[2024-06-16 16:08] LABS: RBC MORPHOLOGY COMMENT ABNORMAL RBC MORPH
[2024-06-16 16:10] LABS: PLATELET MORPHOLOGY COMMENT LARGE PLTS PRESENT
[2024-06-16] MEDS: CLINDAMYCIN 600 MG/D5% WATER 50 ML IV SCH (16:19)
[2024-06-16] MEDS: *CLINICAL-LEVOFLOXACIN IVPB DOSING CLINICAL ONE (16:33)
[2024-06-16] MEDS: *CLINICAL-CEFTAROLINE DOSING CLINICAL ONE (16:33)
[2024-06-16 17:16] LABS: GLUCOMETER DEV NAME(LOC) ICUN.5; GLUCOSE,POINT OF CARE 117 MG/DL (70-110)
[2024-06-16 17:34] LABS: CALCIUM, TOTAL 7.8 mg/dL (8.8-10.5); CREATININE 1.76 mg/dL (0.60-1.30); MAGNESIUM 2.6 mg/dL (1.80-2.40); PHOSPHORUS 6.5 mg/dL (2.5-4.9); POTASSIUM 3.8 mmol/L (3.5-5.1)
[2024-06-16] MEDS: LEVOFLOXACIN 750 MG/D5% WATER 150 ML IV SCH (18:45)
[2024-06-16] MEDS ORDERED: INSULIN REGULAR, HUMAN 100 UNITS in SODIUM CHLORIDE 0.9% 99 ML IV SCH (19:00)
[2024-06-16 20:26] LABS: GLUCOMETER DEV NAME(LOC) ICU.S6; GLUCOSE,POINT OF CARE 135 MG/DL (70-110)
[2024-06-16] MEDS: DEXTROSE 5%-WATER 1,000 ML IV SCH (20:45)
[2024-06-16] MEDS: INSULIN REGULAR, HUMAN 100 UNITS in SODIUM CHLORIDE 0.9% 99 ML IV PRN (20:47)
[2024-06-16] MEDS ORDERED: INSULIN GLARGINE,HUM.REC.ANLOG 100 UNITS/ML SQ SCH (21:00)
[2024-06-16] MEDS: CEFTAROLINE FOSAMIL 300 MG in DEXTROSE 5%-WATER 150 ML IV SCH (21:13)
[2024-06-16 23:29] LABS: ABG BASE EXCESS -11.6 mmol/L (-2.0-3.0); ABG CARBOXYHEMOGLOBIN 0.1 % (0.5-1.5); ABG HCO3 15.7 mmol/L (21.0-28.0); ABG METHEMOGLOBIN 0.4 % (0.0-1.5); ABG OXYGEN CONTENT 19.5 mL/dL (15.0-23.0); ABG OXYGEN SATURATION 99.7 % (94.0-98.0); ABG OXYHEMOGLOBIN 99.2 % (94.0-98.0); ABG PCO2 45 mmHg (32.0-45.0); ABG TOTAL HEMOGLOBIN 13.3 G/dL (12.0-16.0); SOURCE, BLOOD GAS ARTERIAL; TEMPERATURE, FAHRENHEIT, BG 98.5 FAHREN (96.0-98.6)
[2024-06-16 23:38] LABS: ABG PH 7.186 (7.350-7.450); PO2, ARTERIAL BG 372.8 mmHg (83.0-108.0); SITE, BLOOD GAS ARTERIAL LINE
[2024-06-16 23:39] LABS: ABG A-A DIFF O2 295.5 mmHg (10-20.0); O2 DEVICE,BLOOD GAS VENT (ROOM AIR); PEEP,BG 21 cm H2O; VT, ABG 325 ml
[2024-06-16 23:59] LABS: CALCIUM, TOTAL 7.7 mg/dL (8.8-10.5); CREATININE 1.59 mg/dL (0.60-1.30); POTASSIUM 3.1 mmol/L (3.5-5.1)
[2024-06-17] VITALS (14 sets, daily range): BP systolic 109–167; BP diastolic 51–65; PULSE 82–116; RESP 28; TEMP 97–98.7; O2SAT 70–100
[2024-06-17] MEDS: SODIUM BICARBONATE [ADULT] 8.4% 50 MEQ/50 ML SYRINGE IVP ONE (00:20)
[2024-06-17] MEDS: POTASSIUM CHLORIDE 10% 40 MEQ/30 ML LIQUID UDCUP PO ONE (00:29)
[2024-06-17 05:16] LABS: HEMATOCRIT 35.6 % (36-46); MEAN CORPUSCULAR HEMOGLOBIN 28.4 pg (26.0-34.0); MEAN CORPUSCULAR HGB CONC 33.8 G/dL (31.0-37.0); MEAN CORPUSCULAR VOLUME 84 fL (80-100); PLATELET COUNT (AUTO) 91 K/uL (150-450); RED BLOOD CELL COUNT(AUTO) 4.23 MIL/uL (4.00-5.20); RED CELL DISTRIBUTION WIDTH 13.5 % (11.5-14.5); WHITE BLOOD COUNT (AUTO) 28.2 K/uL (4.5-11.0)
[2024-06-17 05:21] LABS: ALANINE AMINOTRANSFERASE 36 U/L (12-78); ALBUMIN 2.5 g/dL (3.4-5.0); ALKALINE PHOSPHATASE 101 U/L (46-116); ANION GAP 14 mmol/L (8-16); ASPARTATE AMINOTRANSFERASE 59 U/L (15-37); BILIRUBIN,TOTAL 3.1 mg/dL (0.1-1.0); CALCIUM, TOTAL 7.4 mg/dL (8.8-10.5); CARBON DIOXIDE 22 mmol/L (22-29); CHLORIDE 92 mmol/L (98-107); CREATININE 1.45 mg/dL (0.60-1.30); GLOMERULAR FILTR. RATE CALC 37 mL/min (>60); GLUCOSE,RANDOM 192 mg/dL (70-110); PHOSPHORUS 3.1 mg/dL (2.5-4.9); SODIUM SERUM 128 mmol/L (136-145); TOTAL PROTEIN, SERUM 5.5 g/dL (6.4-8.2); UREA NITROGEN, BLOOD 25 mg/dL (7-18)
[2024-06-17 05:26] LABS: POTASSIUM 2.8 mmol/L (3.5-5.1)
[2024-06-17 05:33] LABS: LACTIC ACID 5.1 mmol/L (0.4-2.0)
[2024-06-17] MEDS: POTASSIUM CHLORIDE 10% 40 MEQ/30 ML LIQUID UDCUP NG ONE (05:53)
[2024-06-17] MEDS: POTASSIUM CHL 10 MEQ/WATER 50 ML IV SCH (05:56)
[2024-06-17 06:05] LABS: BAND NEUTROPHILS % (MANUAL) 11 % (0-5); LYMPHOCYTES % (MANUAL) 3 % (22-44); MONOCYTES % (MANUAL) 4 % (2-9); SEGMENTED NEUTROPHILS % 82 % (40-70); TOTAL CELLS COUNTED 100
[2024-06-17 06:06] LABS: RBC MORPHOLOGY COMMENT ABNORMAL RBC MORPH
[2024-06-17 07:51] LABS: GLUCOMETER DEV NAME(LOC) ICU.S6; GLUCOSE,POINT OF CARE 169 MG/DL (70-110)
[2024-06-17 07:51] LABS: GLUCOMETER DEV NAME(LOC) ICUN.5; GLUCOSE,POINT OF CARE 287 MG/DL (70-110)
[2024-06-17 07:51] LABS: GLUCOMETER DEV NAME(LOC) ICU.S6; GLUCOSE,POINT OF CARE 192 MG/DL (70-110)
[2024-06-17 07:51] LABS: GLUCOMETER DEV NAME(LOC) ICUN.5; GLUCOSE,POINT OF CARE 279 MG/DL (70-110)
[2024-06-17 07:51] LABS: GLUCOMETER DEV NAME(LOC) ICUN.5; GLUCOSE,POINT OF CARE 169 MG/DL (70-110)
[2024-06-17 07:51] LABS: GLUCOMETER DEV NAME(LOC) ICU.S6; GLUCOSE,POINT OF CARE 226 MG/DL (70-110)
[2024-06-17 07:51] LABS: GLUCOMETER DEV NAME(LOC) ICU.S6; GLUCOSE,POINT OF CARE 255 MG/DL (70-110)
[2024-06-17 07:51] LABS: GLUCOMETER DEV NAME(LOC) ICUN.5; GLUCOSE,POINT OF CARE 272 MG/DL (70-110)
[2024-06-17 07:51] LABS: GLUCOMETER DEV NAME(LOC) ICU.S6; GLUCOSE,POINT OF CARE 240 MG/DL (70-110)
[2024-06-17 07:51] LABS: GLUCOMETER DEV NAME(LOC) ICU.S6; GLUCOSE,POINT OF CARE 213 MG/DL (70-110)
[2024-06-17 07:51] LABS: GLUCOMETER DEV NAME(LOC) ICUN.5; GLUCOSE,POINT OF CARE 204 MG/DL (70-110)
[2024-06-17] MEDS: METHIMAZOLE 5 MG TABLET NG SCH (08:51)
[2024-06-17 11:55] LABS: CALCIUM, TOTAL 7.7 mg/dL (8.8-10.5); CREATININE 1.29 mg/dL (0.60-1.30); POTASSIUM 4.9 mmol/L (3.5-5.1)
[2024-06-17 13:39] LABS: ABG BASE EXCESS -7.5 mmol/L (-2.0-3.0); ABG CARBOXYHEMOGLOBIN 0.3 % (0.5-1.5); ABG HCO3 18.9 mmol/L (21.0-28.0); ABG METHEMOGLOBIN 0.3 % (0.0-1.5); ABG OXYGEN CONTENT 16.7 mL/dL (15.0-23.0); ABG OXYGEN SATURATION 98.5 % (94.0-98.0); ABG OXYHEMOGLOBIN 97.9 % (94.0-98.0); ABG PCO2 35 mmHg (32.0-45.0); ABG PH 7.338 (7.350-7.450); PO2, ARTERIAL BG 117.7 mmHg (83.0-108.0); SOURCE, BLOOD GAS ARTERIAL; TEMPERATURE, FAHRENHEIT, BG 96.6 FAHREN (96.0-98.6)
[2024-06-17 13:40] LABS: ABG A-A DIFF O2 345.8 mmHg (10-20.0); O2 DEVICE,BLOOD GAS VENTILATOR (ROOM AIR); PEEP,BG 12 cm H2O; SITE, BLOOD GAS ARTERIAL LINE; VT, ABG 325 ml
[2024-06-17 18:08] LABS: CREATININE 1.36 mg/dL (0.60-1.30); POTASSIUM 4.6 mmol/L (3.5-5.1)
[2024-06-17 21:05] LABS: GLUCOMETER DEV NAME(LOC) ICUN.5; GLUCOSE,POINT OF CARE 162 MG/DL (70-110)
[2024-06-17 21:05] LABS: GLUCOMETER DEV NAME(LOC) ICUN.5; GLUCOSE,POINT OF CARE 185 MG/DL (70-110)
[2024-06-17 21:05] LABS: GLUCOMETER DEV NAME(LOC) ICUN.5; GLUCOSE,POINT OF CARE 148 MG/DL (70-110)
[2024-06-17 21:05] LABS: GLUCOMETER DEV NAME(LOC) ICUN.5; GLUCOSE,POINT OF CARE 234 MG/DL (70-110)
[2024-06-17 21:05] LABS: GLUCOMETER DEV NAME(LOC) ICUN.5; GLUCOSE,POINT OF CARE 246 MG/DL (70-110)
[2024-06-17 21:05] LABS: GLUCOMETER DEV NAME(LOC) ICUN.5; GLUCOSE,POINT OF CARE 259 MG/DL (70-110)
[2024-06-17 21:05] LABS: GLUCOMETER DEV NAME(LOC) ICUN.5; GLUCOSE,POINT OF CARE 238 MG/DL (70-110)
[2024-06-17 21:05] LABS: GLUCOMETER DEV NAME(LOC) ICUN.5; GLUCOSE,POINT OF CARE 222 MG/DL (70-110)
[2024-06-17 21:06] LABS: GLUCOMETER DEV NAME(LOC) ICUN.5; GLUCOSE,POINT OF CARE 169 MG/DL (70-110)
[2024-06-17 21:06] LABS: GLUCOMETER DEV NAME(LOC) ICUN.5; GLUCOSE,POINT OF CARE 178 MG/DL (70-110)
[2024-06-17 22:27] LABS: CREATININE 1.35 mg/dL (0.60-1.30); POTASSIUM 3.9 mmol/L (3.5-5.1)
[2024-06-17] MEDS ORDERED: INSULIN GLARGINE,HUM.REC.ANLOG 100 UNITS/ML SQ SCH (23:00)
[2024-06-17 23:16] LABS: GLUCOMETER DEV NAME(LOC) ICU.S6; GLUCOSE,POINT OF CARE 141 MG/DL (70-110)
[2024-06-17 23:20] LABS: GLUCOMETER DEV NAME(LOC) ICU.S6; GLUCOSE,POINT OF CARE 150 MG/DL (70-110)
[2024-06-17] MEDS: INSULIN GLARGINE,HUM.REC.ANLOG 100 UNITS/ML SQ SCH (23:20)
[2024-06-18] VITALS (15 sets, daily range): BP systolic 83–143; BP diastolic 42–71; PULSE 70–84; RESP 22–28; TEMP 95.4–98.9; O2SAT 99–100
[2024-06-18 00:25] LABS: GLUCOMETER DEV NAME(LOC) ICUN.5; GLUCOSE,POINT OF CARE 140 MG/DL (70-110)
[2024-06-18 00:25] LABS: GLUCOMETER DEV NAME(LOC) ICUN.5; GLUCOSE,POINT OF CARE 146 MG/DL (70-110)
[2024-06-18 06:10] LABS: HEMATOCRIT 30.3 % (36-46); HEMOGLOBIN 10.4 g/dL (12.0-16.0); MEAN CORPUSCULAR HGB CONC 34.2 G/dL (31.0-37.0); MEAN CORPUSCULAR VOLUME 85 fL (80-100); PLATELET COUNT (AUTO) 52 K/uL (150-450); RED BLOOD CELL COUNT(AUTO) 3.58 MIL/uL (4.00-5.20); RED CELL DISTRIBUTION WIDTH 13.6 % (11.5-14.5)
[2024-06-18 06:14] LABS: WHITE BLOOD COUNT (AUTO) 33.3 K/uL (4.5-11.0)
[2024-06-18 06:29] LABS: ALANINE AMINOTRANSFERASE 29 U/L (12-78); ALKALINE PHOSPHATASE 104 U/L (46-116); ASPARTATE AMINOTRANSFERASE 54 U/L (15-37); BILIRUBIN,TOTAL 3.5 mg/dL (0.1-1.0); PHOSPHORUS 2.5 mg/dL (2.5-4.9); TOTAL PROTEIN, SERUM 5.6 g/dL (6.4-8.2)
[2024-06-18 07:07] LABS: BAND NEUTROPHILS % (MANUAL) 18 % (0-5); LYMPHOCYTES % (MANUAL) 5 % (22-44); MONOCYTES % (MANUAL) 3 % (2-9); SEGMENTED NEUTROPHILS % 74 % (40-70); TOTAL CELLS COUNTED 100; WBC MORPHOLOGY TOXIC GRANULATION
[2024-06-18 07:17] LABS: PROTHROMBIN TIME 11.9 SEC (9.4-11.6)
[2024-06-18 07:34] LABS: ANION GAP 11 mmol/L (8-16); CALCIUM, TOTAL 8.4 mg/dL (8.8-10.5); CARBON DIOXIDE 23 mmol/L (22-29); CHLORIDE 91 mmol/L (98-107); CREATININE 1.26 mg/dL (0.60-1.30); GLOMERULAR FILTR. RATE CALC 43 mL/min (>60); GLUCOSE,RANDOM 193 mg/dL (70-110); POTASSIUM 4.3 mmol/L (3.5-5.1); SODIUM SERUM 125 mmol/L (136-145); UREA NITROGEN, BLOOD 33 mg/dL (7-18)
[2024-06-18 08:01] LABS: GLUCOMETER DEV NAME(LOC) ICUN.5; GLUCOSE,POINT OF CARE 197 MG/DL (70-110)
[2024-06-18] MEDS: METHIMAZOLE 5 MG TABLET NG SCH (08:49)
[2024-06-18 11:30] LABS: ABG BASE EXCESS -5.1 mmol/L (-2.0-3.0); ABG CARBOXYHEMOGLOBIN 0.3 % (0.5-1.5); ABG METHEMOGLOBIN 0.3 % (0.0-1.5); ABG OXYGEN CONTENT 15.2 mL/dL (15.0-23.0); ABG OXYGEN SATURATION 99.4 % (94.0-98.0); ABG OXYHEMOGLOBIN 98.8 % (94.0-98.0); ABG PCO2 29 mmHg (32.0-45.0); ABG PH 7.435 (7.350-7.450); ABG TOTAL HEMOGLOBIN 10.5 G/dL (12.0-16.0); O2 DEVICE,BLOOD GAS VENTILATOR (ROOM AIR); PEEP,BG 10 cm H2O; SITE, BLOOD GAS ARTERIAL LINE; SOURCE, BLOOD GAS ARTERIAL; TEMPERATURE, FAHRENHEIT, BG 96.2 FAHREN (96.0-98.6); VT, ABG 325 ml
[2024-06-18] MEDS: FUROSEMIDE 20 MG/2 ML VIAL IVP ONE (11:45)
[2024-06-18 12:10] LABS: GLUCOMETER DEV NAME(LOC) ICU.S6; GLUCOSE,POINT OF CARE 216 MG/DL (70-110)
[2024-06-18 13:09] LABS: CALCIUM, TOTAL 8.1 mg/dL (8.8-10.5); CREATININE 1.16 mg/dL (0.60-1.30); MAGNESIUM 2.2 mg/dL (1.80-2.40); PHOSPHORUS 2.4 mg/dL (2.5-4.9); POTASSIUM 3.9 mmol/L (3.5-5.1)
[2024-06-18] MEDS ORDERED: SODIUM CHLORIDE 0.9% 500 ML IV ONE (13:59)
[2024-06-18] MEDS ORDERED: SODIUM CHLORIDE 0.9% 250 ML IV ONE ×2 (13:59→16:12)
[2024-06-18] MEDS: SODIUM PHOS,M-BASIC-D-BASIC 20 MMOL in DEXTROSE 5%-WATER 150 ML IV ONE (16:09)
[2024-06-18 16:50] LABS: ABG BASE EXCESS 0.9 mmol/L (-2.0-3.0); ABG HCO3 25.7 mmol/L (21.0-28.0); ABG METHEMOGLOBIN 0.9 % (0.0-1.5); ABG OXYGEN CONTENT 15.1 mL/dL (15.0-23.0); ABG OXYGEN SATURATION 99.4 % (94.0-98.0); ABG OXYHEMOGLOBIN 98.5 % (94.0-98.0); ABG PCO2 30 mmHg (32.0-45.0); ABG PH 7.524 (7.350-7.450); ABG TOTAL HEMOGLOBIN 10.6 G/dL (12.0-16.0); PO2, ARTERIAL BG 169.3 mmHg (83.0-108.0); SOURCE, BLOOD GAS ARTERIAL; TEMPERATURE, FAHRENHEIT, BG 95.4 FAHREN (96.0-98.6)
[2024-06-18 16:51] LABS: O2 DEVICE,BLOOD GAS VENTILATOR (ROOM AIR); PEEP,BG 8 cm H2O; SITE, BLOOD GAS ARTERIAL LINE; VT, ABG 325 ml
[2024-06-18] MEDS: CLINDAMYCIN 600 MG/D5% WATER 50 ML IV SCH (18:07)
[2024-06-18 19:46] LABS: GLUCOMETER DEV NAME(LOC) ICU.S6; GLUCOSE,POINT OF CARE 208 MG/DL (70-110)
[2024-06-18] MEDS ORDERED: CEFTAROLINE FOSAMIL 400 MG in DEXTROSE 5%-WATER 250 ML IV SCH (21:00)
[2024-06-18] MEDS: OSELTAMIVIR PHOSPHATE 30 MG CAPSULE PO SCH (21:29)
[2024-06-18] MEDS: CefTRIAXone 1 GM/DEXTROSE 50 ML IV SCH (21:35)
[2024-06-18] MEDS ORDERED: INSULIN GLARGINE,HUM.REC.ANLOG 100 UNITS/ML SQ SCH (23:00)
[2024-06-19] VITALS (16 sets, daily range): BP systolic 102–129; BP diastolic 51–68; PULSE 65–93; RESP 22–28; TEMP 93–98.1; O2SAT 93–100
[2024-06-19 00:06] LABS: GLUCOMETER DEV NAME(LOC) ICU.S6; GLUCOSE,POINT OF CARE 237 MG/DL (70-110)
[2024-06-19 06:28] LABS: HEMATOCRIT 28.8 % (36-46); HEMOGLOBIN 9.7 g/dL (12.0-16.0); MEAN CORPUSCULAR HEMOGLOBIN 28.2 pg (26.0-34.0); MEAN CORPUSCULAR HGB CONC 33.8 G/dL (31.0-37.0); MEAN CORPUSCULAR VOLUME 83 fL (80-100); PLATELET COUNT (AUTO) 36 K/uL (150-450); RED BLOOD CELL COUNT(AUTO) 3.45 MIL/uL (4.00-5.20); RED CELL DISTRIBUTION WIDTH 14.1 % (11.5-14.5)
[2024-06-19 06:43] LABS: PROTHROMBIN TIME 11.4 SEC (9.4-11.6)
[2024-06-19 06:50] LABS: ALBUMIN 3.5 g/dL (3.4-5.0); BILIRUBIN,DIRECT 2.6 mg/dL (0.00-0.20); BILIRUBIN,TOTAL 4.1 mg/dL (0.1-1.0); CALCIUM, TOTAL 8.4 mg/dL (8.8-10.5); CREATININE 1.39 mg/dL (0.60-1.30); MAGNESIUM 2.2 mg/dL (1.80-2.40); PHOSPHORUS 3.9 mg/dL (2.5-4.9); POTASSIUM 3.7 mmol/L (3.5-5.1); TOTAL PROTEIN, SERUM 6.2 g/dL (6.4-8.2)
[2024-06-19 06:50] LABS: GLUCOMETER DEV NAME(LOC) ICUN.5; GLUCOSE,POINT OF CARE 186 MG/DL (70-110)
[2024-06-19 07:00] LABS: WHITE BLOOD COUNT (AUTO) 34.3 K/uL (4.5-11.0)
[2024-06-19 07:03] LABS: BAND NEUTROPHILS % (MANUAL) 17 % (0-5); LYMPHOCYTES % (MANUAL) 6 % (22-44); MONOCYTES % (MANUAL) 2 % (2-9); SEGMENTED NEUTROPHILS % 75 % (40-70); TOTAL CELLS COUNTED 100; WBC MORPHOLOGY TOXIC GRANULATION
[2024-06-19 07:04] LABS: RBC MORPHOLOGY COMMENT ABNORMAL R
[2024-06-19 08:49] LABS: ABG BASE EXCESS -0.6 mmol/L (-2.0-3.0); ABG CARBOXYHEMOGLOBIN 0.3 % (0.5-1.5); ABG HCO3 24.2 mmol/L (21.0-28.0); ABG METHEMOGLOBIN 0.3 % (0.0-1.5); ABG OXYGEN CONTENT 13.8 mL/dL (15.0-23.0); ABG OXYHEMOGLOBIN 96.4 % (94.0-98.0); ABG PCO2 33 mmHg (32.0-45.0); ABG PH 7.468 (7.350-7.450); ABG TOTAL HEMOGLOBIN 10.1 G/dL (12.0-16.0); PO2, ARTERIAL BG 76.5 mmHg (83.0-108.0); SOURCE, BLOOD GAS ARTERIAL
[2024-06-19 08:50] LABS: ABG A-A DIFF O2 210.4 mmHg (10-20.0); O2 DEVICE,BLOOD GAS VENTILATOR (ROOM AIR); PEEP,BG 5 cm H2O; SITE, BLOOD GAS ARTERIAL LINE; SPONTANEOUS VT, BG 327 ml; VT, ABG 325 ml
[2024-06-19 13:06] LABS: S PNEUMO SOURCE Urine; STREP PNEUMONIAE AG URINE Positive (Negative)
[2024-06-19 13:36] LABS: GLUCOMETER DEV NAME(LOC) ICU.S6; GLUCOSE,POINT OF CARE 219 MG/DL (70-110)
[2024-06-19 18:06] LABS: GLUCOMETER DEV NAME(LOC) ICUN.5; GLUCOSE,POINT OF CARE 135 MG/DL (70-110)
[2024-06-20] VITALS (16 sets, daily range): BP systolic 113–134; BP diastolic 41–51; PULSE 74–98; RESP 18–36; TEMP 97.2–99.7; O2SAT 91–97
[2024-06-20 00:26] LABS: GLUCOMETER DEV NAME(LOC) ICUN.5; GLUCOSE,POINT OF CARE 142 MG/DL (70-110)
[2024-06-20] MEDS ORDERED: SODIUM CHLORIDE 0.9% 250 ML IV ONE ×2 (01:16→20:37)
[2024-06-20 05:56] LABS: GLUCOMETER DEV NAME(LOC) ICUN.5; GLUCOSE,POINT OF CARE 179 MG/DL (70-110)
[2024-06-20 06:23] LABS: HEMATOCRIT 26.6 % (36-46); HEMOGLOBIN 9.2 g/dL (12.0-16.0); MEAN CORPUSCULAR HGB CONC 34.7 G/dL (31.0-37.0); MEAN CORPUSCULAR VOLUME 84 fL (80-100); PLATELET COUNT (AUTO) 39 K/uL (150-450); RED BLOOD CELL COUNT(AUTO) 3.18 MIL/uL (4.00-5.20); RED CELL DISTRIBUTION WIDTH 14.1 % (11.5-14.5)
[2024-06-20 06:31] LABS: ALBUMIN 3.9 g/dL (3.4-5.0); BILIRUBIN,TOTAL 3.9 mg/dL (0.1-1.0); CALCIUM, TOTAL 8.8 mg/dL (8.8-10.5); CREATININE 1.53 mg/dL (0.60-1.30); POTASSIUM 3.5 mmol/L (3.5-5.1); PROTHROMBIN TIME 11.3 SEC (9.4-11.6); TOTAL PROTEIN, SERUM 6.5 g/dL (6.4-8.2)
[2024-06-20 06:39] LABS: WHITE BLOOD COUNT (AUTO) 31.2 K/uL (4.5-11.0)
[2024-06-20 07:14] LABS: BAND NEUTROPHILS % (MANUAL) 3 % (0-5); LYMPHOCYTES % (MANUAL) 6 % (22-44); METAMYELOCYTES % 1 % (0-0); MONOCYTES % (MANUAL) 5 % (2-9); SEGMENTED NEUTROPHILS % 85 % (40-70); TOTAL CELLS COUNTED 100
[2024-06-20] MEDS: AZITHROMYCIN 500 MG/NS 250 ML IV SCH (13:31)
[2024-06-20 14:06] LABS: LEGIONELLA PNEUMO AG URINE Negative (Negative)
[2024-06-20 16:19] LABS: ABG A-A DIFF O2 253.4 mmHg (10-20.0); ABG HCO3 23.1 mmol/L (21.0-28.0); ABG METHEMOGLOBIN 0.3 % (0.0-1.5); ABG OXYGEN CONTENT 12.5 mL/dL (15.0-23.0); ABG OXYGEN SATURATION 92.7 % (94.0-98.0); ABG OXYHEMOGLOBIN 92.4 % (94.0-98.0); ABG PCO2 32 mmHg (32.0-45.0); ABG TOTAL HEMOGLOBIN 9.6 G/dL (12.0-16.0); O2 DEVICE,BLOOD GAS VENTILATOR (ROOM AIR); PO2, ARTERIAL BG 66.8 mmHg (83.0-108.0); SITE, BLOOD GAS ARTERIAL LINE; SOURCE, BLOOD GAS ARTERIAL; TEMPERATURE, FAHRENHEIT, BG 98.4 FAHREN (96.0-98.6)
[2024-06-20 16:20] LABS: PEEP,BG 5 cm H2O; VT, ABG 325 ml
[2024-06-20] MEDS: DEXMEDETOMIDINE HCL 400 MCG in SODIUM CHLORIDE 0.9% 96 ML IV PRN (16:46)
[2024-06-20 17:11] LABS: GLUCOMETER DEV NAME(LOC) ICUN.5; GLUCOSE,POINT OF CARE 121 MG/DL (70-110)
[2024-06-20 19:16] LABS: GLUCOMETER DEV NAME(LOC) ICU.S6; GLUCOSE,POINT OF CARE 100 MG/DL (70-110)
[2024-06-20 19:48] LABS: ABG BASE EXCESS 0.8 mmol/L (-2.0-3.0); ABG CARBOXYHEMOGLOBIN 0.1 % (0.5-1.5); ABG METHEMOGLOBIN 0.3 % (0.0-1.5); ABG OXYGEN CONTENT 13.4 mL/dL (15.0-23.0); ABG OXYGEN SATURATION 92.8 % (94.0-98.0); ABG OXYHEMOGLOBIN 92.4 % (94.0-98.0); ABG PCO2 43 mmHg (32.0-45.0); ABG PH 7.394 (7.350-7.450); ABG TOTAL HEMOGLOBIN 10.3 G/dL (12.0-16.0); PO2, ARTERIAL BG 68.2 mmHg (83.0-108.0); SOURCE, BLOOD GAS ARTERIAL; TEMPERATURE, FAHRENHEIT, BG 98.6 FAHREN (96.0-98.6)
[2024-06-20 19:49] LABS: O2 DEVICE,BLOOD GAS VENTILATOR (ROOM AIR); PEEP,BG 8 cm H2O; SITE, BLOOD GAS ARTERIAL LINE; VT, ABG 325 ml
[2024-06-21] VITALS (13 sets, daily range): BP systolic 123–137; BP diastolic 47–57; PULSE 62–97; RESP 18–40; TEMP 97–100.1; O2SAT 93–97
[2024-06-21] MEDS: ACETAMINOPHEN 650 MG/20.3 ML SOLUTION UDCUP NG PRN (00:34)
[2024-06-21 01:31] LABS: GLUCOMETER DEV NAME(LOC) ICU.S6; GLUCOSE,POINT OF CARE 173 MG/DL (70-110)
[2024-06-21 06:31] LABS: HEMATOCRIT 29.3 % (36-46); HEMOGLOBIN 9.9 g/dL (12.0-16.0); MEAN CORPUSCULAR HEMOGLOBIN 28.6 pg (26.0-34.0); MEAN CORPUSCULAR HGB CONC 33.9 G/dL (31.0-37.0); MEAN CORPUSCULAR VOLUME 84 fL (80-100); PLATELET COUNT (AUTO) 45 K/uL (150-450); RED BLOOD CELL COUNT(AUTO) 3.47 MIL/uL (4.00-5.20); RED CELL DISTRIBUTION WIDTH 14.1 % (11.5-14.5)
[2024-06-21 06:46] LABS: GLUCOMETER DEV NAME(LOC) ICUN.5; GLUCOSE,POINT OF CARE 164 MG/DL (70-110)
[2024-06-21 06:47] LABS: WHITE BLOOD COUNT (AUTO) 31.6 K/uL (4.5-11.0)
[2024-06-21 06:50] LABS: ALBUMIN 3.1 g/dL (3.4-5.0); BILIRUBIN,TOTAL 1.5 mg/dL (0.1-1.0); CALCIUM, TOTAL 8.3 mg/dL (8.8-10.5); CREATININE 1.62 mg/dL (0.60-1.30); POTASSIUM 3.8 mmol/L (3.5-5.1); TOTAL PROTEIN, SERUM 6.3 g/dL (6.4-8.2)
[2024-06-21 07:29] LABS: BAND NEUTROPHILS % (MANUAL) 7 % (0-5); LYMPHOCYTES % (MANUAL) 4 % (22-44); MONOCYTES % (MANUAL) 6 % (2-9); MYELOCYTES % 3 % (0-0); REACTIVE LYMPHOCYTES 3 % (0-0); SEGMENTED NEUTROPHILS % 77 % (40-70); TOTAL CELLS COUNTED 100
[2024-06-21] MEDS: OSELTAMIVIR PHOSPHATE 30 MG CAPSULE PO SCH (07:47)
[2024-06-21 13:41] LABS: GLUCOMETER DEV NAME(LOC) ICU.S6; GLUCOSE,POINT OF CARE 201 MG/DL (70-110)
[2024-06-21] MEDS ORDERED: MetroNIDAZOLE 500 MG/NACL 100 ML IV SCH (16:00)
[2024-06-21] MEDS: MetroNIDAZOLE 500 MG TABLET PO SCH (17:28)
[2024-06-21 19:46] LABS: GLUCOMETER DEV NAME(LOC) ICUN.5; GLUCOSE,POINT OF CARE 153 MG/DL (70-110)
[2024-06-21] MEDS ORDERED: SODIUM CHLORIDE 0.9% 250 ML IV ONE (23:42)
[2024-06-22] VITALS (13 sets, daily range): BP systolic 125–178; BP diastolic 50–57; PULSE 70–118; RESP 18–29; TEMP 97.7–101.2; O2SAT 91–98
[2024-06-22 01:46] LABS: GLUCOMETER DEV NAME(LOC) ICUN.5; GLUCOSE,POINT OF CARE 247 MG/DL (70-110)
[2024-06-22 06:27] LABS: ALBUMIN 2.7 g/dL (3.4-5.0); BILIRUBIN,TOTAL 0.9 mg/dL (0.1-1.0); CALCIUM, TOTAL 8.1 mg/dL (8.8-10.5); CREATININE 1.19 mg/dL (0.60-1.30); POTASSIUM 3.6 mmol/L (3.5-5.1); TOTAL PROTEIN, SERUM 6.1 g/dL (6.4-8.2)
[2024-06-22 06:39] LABS: HEMATOCRIT 31.6 % (36-46); HEMOGLOBIN 10.2 g/dL (12.0-16.0); MEAN CORPUSCULAR HEMOGLOBIN 27.6 pg (26.0-34.0); MEAN CORPUSCULAR HGB CONC 32.3 G/dL (31.0-37.0); MEAN CORPUSCULAR VOLUME 86 fL (80-100); PLATELET COUNT (AUTO) 77 K/uL (150-450); RED CELL DISTRIBUTION WIDTH 14.5 % (11.5-14.5)
[2024-06-22 06:48] LABS: WHITE BLOOD COUNT (AUTO) 37.4 K/uL (4.5-11.0)
[2024-06-22 06:57] LABS: BAND NEUTROPHILS % (MANUAL) 7 % (0-5); LYMPHOCYTES % (MANUAL) 4 % (22-44); MONOCYTES % (MANUAL) 5 % (2-9); MYELOCYTES % 1 % (0-0); REACTIVE LYMPHOCYTES 2 % (0-0); SEGMENTED NEUTROPHILS % 81 % (40-70); TOTAL CELLS COUNTED 100
[2024-06-22 07:16] LABS: GLUCOMETER DEV NAME(LOC) ICU.S6; GLUCOSE,POINT OF CARE 233 MG/DL (70-110)
[2024-06-22] MEDS: LABETALOL HCL 5 MG/ML 20 ML VIAL IVP PRN (07:35)
[2024-06-22] MEDS: OSELTAMIVIR PHOSPHATE 30 MG CAPSULE PO SCH (09:00)
[2024-06-22] MEDS: AmLODIPine BESYLATE 10 MG TABLET PO SCH (10:15)
[2024-06-22] MEDS ORDERED: AmLODIPine BESYLATE 10 MG TABLET ONE (10:15)
[2024-06-22 12:08] LABS: ABG A-A DIFF O2 216.6 mmHg (10-20.0); ABG BASE EXCESS 4.5 mmol/L (-2.0-3.0); ABG CARBOXYHEMOGLOBIN 0.1 % (0.5-1.5); ABG HCO3 27.6 mmol/L (21.0-28.0); ABG OXYGEN CONTENT 13.6 mL/dL (15.0-23.0); ABG OXYGEN SATURATION 92.2 % (94.0-98.0); ABG OXYHEMOGLOBIN 91.2 % (94.0-98.0); ABG PCO2 57 mmHg (32.0-45.0); ABG PH 7.344 (7.350-7.450); ABG TOTAL HEMOGLOBIN 10.6 G/dL (12.0-16.0); O2 DEVICE,BLOOD GAS VENTILATOR (ROOM AIR); PEEP,BG 10 cm H2O; PO2, ARTERIAL BG 73.9 mmHg (83.0-108.0); SITE, BLOOD GAS ARTERIAL LINE; SOURCE, BLOOD GAS ARTERIAL; SPONTANEOUS VT, BG 316 ml; TEMPERATURE, FAHRENHEIT, BG 101.2 FAHREN (96.0-98.6); VT, ABG 325 ml
[2024-06-22] MEDS: VANCOMYCIN 1GM/WATER(PEG/NADA) 200 ML IV ONE (16:14)
[2024-06-22 17:43] LABS: APPEARANCE,URINE CLEAR (CLEAR); BILIRUBIN,URINE NEGATIVE (NEGATIVE); COLOR,URINE LIGHT YELLOW (YELLOW); GLUCOSE, URINE (UA) >=1000 mg/dL (NEGATIVE); KETONES,URINE NEGATIVE (NEGATIVE); LEUKOCYTE ESTERASE ,URINE NEGATIVE (NEGATIVE); NITRATE,URINE NEGATIVE (NEGATIVE); OCCULT BLOOD,URINE NEGATIVE (NEGATIVE); PH,URINE 5.5 (5.0-8.0); PROTEIN,URINE TRACE mg/dL (NEGATIVE); SPECIFIC GRAVITIY, URINE 1.019 (1.003-1.030); UROBILINOGEN,URINE <=1.0 mg/dL (<=1.0)
[2024-06-22 17:51] LABS: GLUCOMETER DEV NAME(LOC) ICU.S6; GLUCOSE,POINT OF CARE 291 MG/DL (70-110)
[2024-06-22 17:55] LABS: GLUCOMETER DEV NAME(LOC) ICU.S6; GLUCOSE,POINT OF CARE 288 MG/DL (70-110)
[2024-06-22 18:16] LABS: BACTERIA,URINE Rare /HPF (None Seen); RBC,URINE None Seen /HPF (0-2); WBC,URINE 0-2 /HPF (0-5)
[2024-06-22 18:24] LABS: INFLUENZA A-RTPCR,COMBO POSITIVE (NEGATIVE); INFLUENZA B-RTPCR,COMBO NEGATIVE (NEGATIVE); RESPIRATORY SYNCYTIAL VRS-PCR NEGATIVE (NEGATIVE); SARS COVID19 RTPCR, COMBO NEGATIVE (NEGATIVE)
[2024-06-22 18:25] LABS: C.DIFF GDH ANTIGEN, Stool Negative (Negative); C.DIFF TOXINS A&B, Stool Negative (Negative)
[2024-06-22 19:29] LABS: ABG BASE EXCESS 4.4 mmol/L (-2.0-3.0); ABG CARBOXYHEMOGLOBIN 0.3 % (0.5-1.5); ABG HCO3 27.8 mmol/L (21.0-28.0); ABG OXYGEN CONTENT 13.8 mL/dL (15.0-23.0); ABG OXYHEMOGLOBIN 94.7 % (94.0-98.0); ABG PCO2 49 mmHg (32.0-45.0); ABG PH 7.396 (7.350-7.450); ABG TOTAL HEMOGLOBIN 10.3 G/dL (12.0-16.0); PO2, ARTERIAL BG 78.7 mmHg (83.0-108.0); SOURCE, BLOOD GAS ARTERIAL; TEMPERATURE, FAHRENHEIT, BG 98.6 FAHREN (96.0-98.6)
[2024-06-22 19:30] LABS: ALLEN TEST, BLOOD GAS Positive; O2 DEVICE,BLOOD GAS VENTILATOR (ROOM AIR); PEEP,BG 10 cm H2O; SITE, BLOOD GAS RT RADIAL; VT, ABG 325 ml
[2024-06-22] MEDS ORDERED: SODIUM CHLORIDE 0.9% 250 ML IV ONE (20:06)
[2024-06-22] MEDS ORDERED: SODIUM CHLORIDE 0.9% 500 ML IV ONE (20:06)
[2024-06-22] MEDS: CefTRIAXone SODIUM 2 GM in DEXTROSE 5%-WATER 50 ML IV SCH (20:54)
[2024-06-23] VITALS (13 sets, daily range): BP systolic 121–166; BP diastolic 44–53; PULSE 65–109; RESP 18–25; TEMP 96.5–101.7; O2SAT 92–100
[2024-06-23 00:41] LABS: GLUCOMETER DEV NAME(LOC) ICUN.5; GLUCOSE,POINT OF CARE 282 MG/DL (70-110)
[2024-06-23 06:33] LABS: HEMATOCRIT 30.5 % (36-46); HEMOGLOBIN 9.6 g/dL (12.0-16.0); MEAN CORPUSCULAR HEMOGLOBIN 27.4 pg (26.0-34.0); MEAN CORPUSCULAR HGB CONC 31.5 G/dL (31.0-37.0); MEAN CORPUSCULAR VOLUME 87 fL (80-100); PLATELET COUNT (AUTO) 87 K/uL (150-450); RED BLOOD CELL COUNT(AUTO) 3.52 MIL/uL (4.00-5.20); RED CELL DISTRIBUTION WIDTH 14.7 % (11.5-14.5)
[2024-06-23 06:34] LABS: ANION GAP 6 mmol/L (8-16); CALCIUM, TOTAL 8.4 mg/dL (8.8-10.5); CARBON DIOXIDE 33 mmol/L (22-29); CHLORIDE 114 mmol/L (98-107); CREATININE 0.93 mg/dL (0.60-1.30); GLOMERULAR FILTR. RATE CALC > 60 mL/min (>60); GLUCOSE,RANDOM 393 mg/dL (70-110); POTASSIUM 3.2 mmol/L (3.5-5.1); SODIUM SERUM 153 mmol/L (136-145); UREA NITROGEN, BLOOD 53 mg/dL (7-18)
[2024-06-23 07:10] LABS: WHITE BLOOD COUNT (AUTO) 44.3 K/uL (4.5-11.0)
[2024-06-23 08:38] LABS: BAND NEUTROPHILS % (MANUAL) 9 % (0-5); LYMPHOCYTES % (MANUAL) 5 % (22-44); MONOCYTES % (MANUAL) 4 % (2-9); PLATELET MORPHOLOGY COMMENT LARGE PLTS PRESENT; RBC MORPHOLOGY COMMENT ABNORMAL RBC MORPH; SEGMENTED NEUTROPHILS % 82 % (40-70); TOTAL CELLS COUNTED 100
[2024-06-23] MEDS: VANCOMYCIN 1GM/WATER(PEG/NADA) 200 ML IV SCH (08:56)
[2024-06-23 11:54] LABS: ABG A-A DIFF O2 214.5 mmHg (10-20.0); ABG CARBOXYHEMOGLOBIN 0.2 % (0.5-1.5); ABG HCO3 27.6 mmol/L (21.0-28.0); ABG OXYGEN CONTENT 13.8 mL/dL (15.0-23.0); ABG OXYGEN SATURATION 97.2 % (94.0-98.0); ABG PCO2 44 mmHg (32.0-45.0); ABG PH 7.425 (7.350-7.450); ABG TOTAL HEMOGLOBIN 10.1 G/dL (12.0-16.0); O2 DEVICE,BLOOD GAS VENTILATOR (ROOM AIR); PO2, ARTERIAL BG 92.1 mmHg (83.0-108.0); SITE, BLOOD GAS ARTERIAL LINE; SOURCE, BLOOD GAS ARTERIAL; TEMPERATURE, FAHRENHEIT, BG 98.7 FAHREN (96.0-98.6); VT, ABG 325 ml
[2024-06-23 11:55] LABS: SPONTANEOUS VT, BG 364 ml
[2024-06-23 12:16] LABS: PEEP,BG 8 cm H2O
[2024-06-23] MEDS: DEXTROSE 5%-WATER 1,000 ML IV ONE (15:28)
[2024-06-23] MEDS ORDERED: HydrALAZINE HCL 25 MG TABLET PO SCH (16:00)
[2024-06-23] MEDS: LACTULOSE 200 GM/300 ML RECTAL SOLUTION PR ONE (17:25)
[2024-06-23] MEDS: POTASSIUM CHL 10 MEQ/WATER 50 ML IV SCH (17:29)
[2024-06-23 18:41] LABS: GLUCOMETER DEV NAME(LOC) ICUN.5; GLUCOSE,POINT OF CARE 343 MG/DL (70-110)
[2024-06-23 18:41] LABS: GLUCOMETER DEV NAME(LOC) ICU.S6; GLUCOSE,POINT OF CARE 238 MG/DL (70-110)
[2024-06-23 18:41] LABS: GLUCOMETER DEV NAME(LOC) ICU.S6; GLUCOSE,POINT OF CARE 275 MG/DL (70-110)
[2024-06-23] MEDS: INSULIN GLARGINE,HUM.REC.ANLOG 100 UNITS/ML SQ SCH (23:39)
[2024-06-24] VITALS (13 sets, daily range): BP systolic 99–145; BP diastolic 46–65; PULSE 69–105; RESP 18–25; TEMP 96.3–99.1; O2SAT 75–100
[2024-06-24 01:16] LABS: GLUCOMETER DEV NAME(LOC) ICUN.5; GLUCOSE,POINT OF CARE 179 MG/DL (70-110)
[2024-06-24] MEDS ORDERED: SODIUM CHLORIDE 0.9% 250 ML IV ONE (05:36)
[2024-06-24 06:01] LABS: HEMATOCRIT 34.7 % (36-46); HEMOGLOBIN 10.8 g/dL (12.0-16.0); MEAN CORPUSCULAR HEMOGLOBIN 27.8 pg (26.0-34.0); MEAN CORPUSCULAR HGB CONC 31.1 G/dL (31.0-37.0); MEAN CORPUSCULAR VOLUME 90 fL (80-100); PLATELET COUNT (AUTO) 143 K/uL (150-450); RED BLOOD CELL COUNT(AUTO) 3.88 MIL/uL (4.00-5.20); RED CELL DISTRIBUTION WIDTH 15.4 % (11.5-14.5)
[2024-06-24 06:13] LABS: ALBUMIN 2.5 g/dL (3.4-5.0); BILIRUBIN,TOTAL 0.8 mg/dL (0.1-1.0); CALCIUM, TOTAL 8.3 mg/dL (8.8-10.5); CREATININE 1.07 mg/dL (0.60-1.30); POTASSIUM 4.5 mmol/L (3.5-5.1); TOTAL PROTEIN, SERUM 6.5 g/dL (6.4-8.2)
[2024-06-24 06:35] LABS: WHITE BLOOD COUNT (AUTO) 70.4 K/uL (4.5-11.0)
[2024-06-24] MEDS ORDERED: NOREPINEPHRINE 8 MG/0.9 % NACL 250 ML IV ONE (06:37)
[2024-06-24] MEDS: NOREPINEPHRINE 8 MG/0.9 % NACL 250 ML IV PRN (06:40)
[2024-06-24 06:58] LABS: BAND NEUTROPHILS % (MANUAL) 10 % (0-5); LYMPHOCYTES % (MANUAL) 6 % (22-44); MONOCYTES % (MANUAL) 3 % (2-9); SEGMENTED NEUTROPHILS % 81 % (40-70); TOTAL CELLS COUNTED 100
[2024-06-24 06:59] LABS: PLATELET MORPHOLOGY COMMENT LARGE PLTS PRESENT; RBC MORPHOLOGY COMMENT ABNORMAL RBC MORPH
[2024-06-24 07:25] LABS: GLUCOMETER DEV NAME(LOC) ICUN.5; GLUCOSE,POINT OF CARE 225 MG/DL (70-110)
[2024-06-24] MEDS: AmLODIPine BESYLATE 10 MG TABLET PO SCH (09:03)
[2024-06-24] MEDS: *CLINICAL-MEROPENEM DOSING CLINICAL ONE (14:40)
[2024-06-24] MEDS: MEROPENEM 1 GM in SODIUM CHLORIDE 0.9% 100 ML IV SCH (17:39)
[2024-06-24] MEDS: SODIUM CHLORIDE 0.45% 1,000 ML IV ONE (18:41)
[2024-06-24 20:01] LABS: GLUCOMETER DEV NAME(LOC) ICU.S6; GLUCOSE,POINT OF CARE 150 MG/DL (70-110)
[2024-06-24 20:01] LABS: GLUCOMETER DEV NAME(LOC) ICU.S6; GLUCOSE,POINT OF CARE 199 MG/DL (70-110)
[2024-06-24] MEDS: HYDROCORTISONE SOD SUCC 100 MG/2 ML VIAL IVP SCH (21:44)
[2024-06-25] VITALS (13 sets, daily range): BP systolic 142–158; BP diastolic 64–125; PULSE 80–107; RESP 18–29; TEMP 97.7–100; O2SAT 90–100
[2024-06-25 01:06] LABS: GLUCOMETER DEV NAME(LOC) ICUN.5; GLUCOSE,POINT OF CARE 144 MG/DL (70-110)
[2024-06-25 01:06] LABS: GLUCOMETER DEV NAME(LOC) ICU.S6; GLUCOSE,POINT OF CARE 137 MG/DL (70-110)
[2024-06-25 06:15] LABS: HEMATOCRIT 26.8 % (36-46); HEMOGLOBIN 8.8 g/dL (12.0-16.0); MEAN CORPUSCULAR HEMOGLOBIN 28.4 pg (26.0-34.0); MEAN CORPUSCULAR VOLUME 86 fL (80-100); PLATELET COUNT (AUTO) 129 K/uL (150-450); RED BLOOD CELL COUNT(AUTO) 3.12 MIL/uL (4.00-5.20); RED CELL DISTRIBUTION WIDTH 14.6 % (11.5-14.5)
[2024-06-25 06:22] LABS: ANION GAP 6 mmol/L (8-16); CALCIUM, TOTAL 7.9 mg/dL (8.8-10.5); CARBON DIOXIDE 32 mmol/L (22-29); CHLORIDE 115 mmol/L (98-107); CREATININE 0.82 mg/dL (0.60-1.30); GLOMERULAR FILTR. RATE CALC > 60 mL/min (>60); GLUCOSE,RANDOM 166 mg/dL (70-110); POTASSIUM 3.4 mmol/L (3.5-5.1); SODIUM SERUM 153 mmol/L (136-145); UREA NITROGEN, BLOOD 49 mg/dL (7-18); VANCOMYCIN,RANDOM 10.2 mcg/mL (25.0-50.0); WHITE BLOOD COUNT (AUTO) 42.2 K/uL (4.5-11.0)
[2024-06-25 07:04] LABS: BAND NEUTROPHILS % (MANUAL) 2 % (0-5); LYMPHOCYTES % (MANUAL) 3 % (22-44); MONOCYTES % (MANUAL) 2 % (2-9); SEGMENTED NEUTROPHILS % 93 % (40-70); TOTAL CELLS COUNTED 100
[2024-06-25] MEDS: POTASSIUM CHLORIDE 20 MEQ ER TABLET PO PRN (10:26)
[2024-06-25 13:06] LABS: ATYPICAL P-ANCA AB <1:20 titer (Neg:<1:20); CYTOPLASMIC (C-ANCA) AB, IGG <1:20 titer (Neg:<1:20)
[2024-06-25 13:11] LABS: GLUCOMETER DEV NAME(LOC) ICU.S6; GLUCOSE,POINT OF CARE 86 MG/DL (70-110)
[2024-06-25 13:11] LABS: GLUCOMETER DEV NAME(LOC) ICU.S6; GLUCOSE,POINT OF CARE 144 MG/DL (70-110)
[2024-06-25] MEDS: MEROPENEM 1 GM in SODIUM CHLORIDE 0.9% 100 ML IV SCH (13:59)
[2024-06-25 17:06] LABS: ANTI-PROTEINASE 3 (PR3) <0.2 units (0.0-0.9)
[2024-06-25] MEDS: POTASSIUM CHLORIDE 10% 40 MEQ/30 ML LIQUID UDCUP NG SCH (17:21)
[2024-06-25] MEDS ORDERED: DEXMEDETOMIDINE HCL 400 MCG in SODIUM CHLORIDE 0.9% 96 ML IV PRN (17:45)
[2024-06-25] MEDS: LABETALOL HCL 5 MG/ML 20 ML VIAL IVP PRN (17:47)
[2024-06-25] MEDS: VANCOMYCIN HCL 750 MG in DEXTROSE 5%-WATER 250 ML IV SCH (20:47)
[2024-06-25] MEDS: FUROSEMIDE 20 MG/2 ML VIAL IVP SCH (20:47)
[2024-06-25 21:16] LABS: GLUCOMETER DEV NAME(LOC) ICU.S6; GLUCOSE,POINT OF CARE 95 MG/DL (70-110)
[2024-06-26] VITALS (15 sets, daily range): BP systolic 132–191; BP diastolic 55–95; PULSE 66–103; RESP 18–37; TEMP 97–99.4; O2SAT 68–99
[2024-06-26 00:10] LABS: GLUCOMETER DEV NAME(LOC) ICU.S6; GLUCOSE,POINT OF CARE 147 MG/DL (70-110)
[2024-06-26 05:41] LABS: GLUCOMETER DEV NAME(LOC) ICU.S6; GLUCOSE,POINT OF CARE 162 MG/DL (70-110)
[2024-06-26 06:11] LABS: HEMATOCRIT 24.3 % (36-46); MEAN CORPUSCULAR HEMOGLOBIN 28.4 pg (26.0-34.0); MEAN CORPUSCULAR HGB CONC 33.1 G/dL (31.0-37.0); MEAN CORPUSCULAR VOLUME 86 fL (80-100); PLATELET COUNT (AUTO) 148 K/uL (150-450); RED BLOOD CELL COUNT(AUTO) 2.82 MIL/uL (4.00-5.20); RED CELL DISTRIBUTION WIDTH 14.5 % (11.5-14.5)
[2024-06-26 06:19] LABS: ANION GAP 5 mmol/L (8-16); CALCIUM, TOTAL 7.7 mg/dL (8.8-10.5); CARBON DIOXIDE 34 mmol/L (22-29); CHLORIDE 111 mmol/L (98-107); GLOMERULAR FILTR. RATE CALC > 60 mL/min (>60); GLUCOSE,RANDOM 150 mg/dL (70-110); POTASSIUM 3.8 mmol/L (3.5-5.1); SODIUM SERUM 150 mmol/L (136-145); UREA NITROGEN, BLOOD 39 mg/dL (7-18)
[2024-06-26 06:56] LABS: WHITE BLOOD COUNT (AUTO) 37.6 K/uL (4.5-11.0)
[2024-06-26 06:58] LABS: BAND NEUTROPHILS % (MANUAL) 3 % (0-5); LYMPHOCYTES % (MANUAL) 4 % (22-44); MONOCYTES % (MANUAL) 2 % (2-9); PLATELET MORPHOLOGY COMMENT LARGE PLTS PRESENT; RBC MORPHOLOGY COMMENT ABNORMAL R; SEGMENTED NEUTROPHILS % 91 % (40-70); TOTAL CELLS COUNTED 100
[2024-06-26 07:06] LABS: GLUCOMETER DEV NAME(LOC) ICU.S6; GLUCOSE,POINT OF CARE 136 MG/DL (70-110)
[2024-06-26 17:56] LABS: GLUCOMETER DEV NAME(LOC) ICU.S6; GLUCOSE,POINT OF CARE 161 MG/DL (70-110)
[2024-06-26 19:21] LABS: GLUCOMETER DEV NAME(LOC) ICUN.5; GLUCOSE,POINT OF CARE 166 MG/DL (70-110)
[2024-06-26] MEDS ORDERED: SODIUM CHLORIDE 0.9% 250 ML IV ONE (21:36)
[2024-06-27] VITALS (15 sets, daily range): BP systolic 106–145; BP diastolic 49–64; PULSE 62–98; RESP 18–33; TEMP 96.3–98.5; O2SAT 64–100
[2024-06-27 00:16] LABS: GLUCOMETER DEV NAME(LOC) ICU.S6; GLUCOSE,POINT OF CARE 162 MG/DL (70-110)
[2024-06-27 06:25] LABS: HEMATOCRIT 22.5 % (36-46); HEMOGLOBIN 7.6 g/dL (12.0-16.0); MEAN CORPUSCULAR HEMOGLOBIN 28.7 pg (26.0-34.0); MEAN CORPUSCULAR HGB CONC 33.5 G/dL (31.0-37.0); MEAN CORPUSCULAR VOLUME 86 fL (80-100); PLATELET COUNT (AUTO) 149 K/uL (150-450); RED BLOOD CELL COUNT(AUTO) 2.63 MIL/uL (4.00-5.20); RED CELL DISTRIBUTION WIDTH 14.3 % (11.5-14.5)
[2024-06-27 06:36] LABS: WHITE BLOOD COUNT (AUTO) 31.5 K/uL (4.5-11.0)
[2024-06-27 06:38] LABS: ALANINE AMINOTRANSFERASE 71 U/L (12-78); ALBUMIN 1.4 g/dL (3.4-5.0); ALKALINE PHOSPHATASE 269 U/L (46-116); ANION GAP 4 mmol/L (8-16); ASPARTATE AMINOTRANSFERASE 48 U/L (15-37); BILIRUBIN,TOTAL 0.6 mg/dL (0.1-1.0); CALCIUM, TOTAL 7.7 mg/dL (8.8-10.5); CARBON DIOXIDE 35 mmol/L (22-29); CHLORIDE 109 mmol/L (98-107); GLOMERULAR FILTR. RATE CALC > 60 mL/min (>60); GLUCOSE,RANDOM 125 mg/dL (70-110); POTASSIUM 3.6 mmol/L (3.5-5.1); SODIUM SERUM 148 mmol/L (136-145); TOTAL PROTEIN, SERUM 5.2 g/dL (6.4-8.2); UREA NITROGEN, BLOOD 37 mg/dL (7-18)
[2024-06-27 07:23] LABS: BAND NEUTROPHILS % (MANUAL) 2 % (0-5); LYMPHOCYTES % (MANUAL) 4 % (22-44); MONOCYTES % (MANUAL) 1 % (2-9); SEGMENTED NEUTROPHILS % 93 % (40-70); TOTAL CELLS COUNTED 100
[2024-06-27] MEDS: PANTOPRAZOLE SODIUM 40 MG/VIAL IVP SCH (10:12)
[2024-06-27 11:06] LABS: ANTI-DNA DOUBLE STRANDED ABS <1 IU/mL (0-9)
[2024-06-27 14:11] LABS: GLUCOMETER DEV NAME(LOC) ICUN.5; GLUCOSE,POINT OF CARE 124 MG/DL (70-110)
[2024-06-27 14:11] LABS: GLUCOMETER DEV NAME(LOC) ICUN.5; GLUCOSE,POINT OF CARE 151 MG/DL (70-110)
[2024-06-27] MEDS: ONDANSETRON HCL 4 MG/2 ML VIAL IVP PRN (14:34)
[2024-06-27 18:12] LABS: HEMATOCRIT 23.6 % (36-46); HEMOGLOBIN 7.6 g/dL (12.0-16.0)
[2024-06-27 18:45] LABS: GLUCOMETER DEV NAME(LOC) ICU.S6; GLUCOSE,POINT OF CARE 111 MG/DL (70-110)
[2024-06-27 21:06] LABS: COCCI IGG TITER COMP.FIX-KERN <1:2; COCCIOIDES AB IGG (ID)-KERN Non Reactive; COCCIOIDES AB IGM (ID)-KERN Non Reactive
[2024-06-27] MEDS ORDERED: SODIUM CHLORIDE 0.9% 250 ML IV ONE (23:49)
[2024-06-28] VITALS (15 sets, daily range): BP systolic 116–161; BP diastolic 56–71; PULSE 56–73; RESP 18–35; TEMP 96.3–97.8; O2SAT 88–100
[2024-06-28 00:36] LABS: GLUCOMETER DEV NAME(LOC) ICUN.5; GLUCOSE,POINT OF CARE 159 MG/DL (70-110)
[2024-06-28 05:54] LABS: BASOPHILS % (AUTO) 0.2 % (0.0-2.0); EOSINOPHILS % (AUTO) 0.1 % (1.0-6.0); HEMATOCRIT 23.9 % (36-46); HEMOGLOBIN 7.9 g/dL (12.0-16.0); LYMPHOCYTES # (AUTO) 1.2 K/uL (1.0-4.8); LYMPHOCYTES % (AUTO) 4.4 % (22.0-44.0); MEAN CORPUSCULAR HEMOGLOBIN 28.4 pg (26.0-34.0); MEAN CORPUSCULAR HGB CONC 33.3 G/dL (31.0-37.0); MEAN CORPUSCULAR VOLUME 85 fL (80-100); MONOCYTES # (AUTO) 0.5 K/uL (0.1-1.0); MONOCYTES % (AUTO) 1.8 % (2.0-9.0); NEUTROPHILS # (AUTO) 25.3 K/uL (1.8-7.7); PLATELET COUNT (AUTO) 180 K/uL (150-450); RED BLOOD CELL COUNT(AUTO) 2.79 MIL/uL (4.00-5.20); RED CELL DISTRIBUTION WIDTH 14.1 % (11.5-14.5); WHITE BLOOD COUNT (AUTO) 27.1 K/uL (4.5-11.0)
[2024-06-28 05:59] LABS: NEUTROPHILS % (AUTO) 93.5 % (40.0-70.0)
[2024-06-28 06:06] LABS: ANION GAP 4 mmol/L (8-16); CALCIUM, TOTAL 7.5 mg/dL (8.8-10.5); CARBON DIOXIDE 36 mmol/L (22-29); CHLORIDE 103 mmol/L (98-107); GLOMERULAR FILTR. RATE CALC > 60 mL/min (>60); GLUCOSE,RANDOM 217 mg/dL (70-110); POTASSIUM 3.6 mmol/L (3.5-5.1); SODIUM SERUM 143 mmol/L (136-145); UREA NITROGEN, BLOOD 34 mg/dL (7-18)
[2024-06-28 06:12] LABS: MAGNESIUM 1.8 mg/dL (1.80-2.40); PHOSPHORUS 3.6 mg/dL (2.5-4.9)
[2024-06-28 06:31] LABS: GLUCOMETER DEV NAME(LOC) ICUN.5; GLUCOSE,POINT OF CARE 211 MG/DL (70-110)
[2024-06-28 11:33] LABS: ABG BASE EXCESS 7.8 mmol/L (-2.0-3.0); ABG CARBOXYHEMOGLOBIN 0.3 % (0.5-1.5); ABG HCO3 31.1 mmol/L (21.0-28.0); ABG OXYGEN CONTENT 12.8 mL/dL (15.0-23.0); ABG OXYGEN SATURATION 94.2 % (94.0-98.0); ABG OXYHEMOGLOBIN 93.9 % (94.0-98.0); ABG PCO2 36 mmHg (32.0-45.0); ABG PH 7.547 (7.350-7.450); ABG TOTAL HEMOGLOBIN 9.6 G/dL (12.0-16.0); PO2, ARTERIAL BG 67.1 mmHg (83.0-108.0); SOURCE, BLOOD GAS ARTERIAL; TEMPERATURE, FAHRENHEIT, BG 97.3 FAHREN (96.0-98.6)
[2024-06-28 11:36] LABS: ALLEN TEST, BLOOD GAS Positive; SITE, BLOOD GAS RT RADIAL
[2024-06-28 11:37] LABS: O2 DEVICE,BLOOD GAS VENTILATOR (ROOM AIR); VENT MODE, BG CPAP (ROOM AIR)
[2024-06-28 11:38] LABS: CPAP, BG 5 cm H2O; PRESSURE SUPPORT, BG 8 cm H2O; SPONTANEOUS VT, BG 328 ml
[2024-06-28 17:35] LABS: GLUCOMETER DEV NAME(LOC) ICU.S6; GLUCOSE,POINT OF CARE 168 MG/DL (70-110)
[2024-06-28] MEDS: CefTRIAXone 1 GM/DEXTROSE 50 ML IV SCH (20:27)
[2024-06-28 21:30] LABS: GLUCOMETER DEV NAME(LOC) ICU.S6; GLUCOSE,POINT OF CARE 157 MG/DL (70-110)
[2024-06-28 21:59] LABS: HEMATOCRIT 23.8 % (36-46); HEMOGLOBIN 7.7 g/dL (12.0-16.0)
[2024-06-29] VITALS (13 sets, daily range): BP systolic 109–158; BP diastolic 46–67; PULSE 52–105; RESP 18–31; TEMP 95.8–97.7; O2SAT 75–98
[2024-06-29] MEDS: DEXTROSE 50%-WATER 25 GM/50 ML SYRINGE IVP PRN (00:12)
[2024-06-29] MEDS: DEXTROSE 5%-0.45% SODIUM CHL 1,000 ML IV ONE (00:39)
[2024-06-29 03:51] LABS: GLUCOMETER DEV NAME(LOC) ICUN.5; GLUCOSE,POINT OF CARE 57 MG/DL (70-110)
[2024-06-29 03:51] LABS: GLUCOMETER DEV NAME(LOC) ICUN.5; GLUCOSE,POINT OF CARE 174 MG/DL (70-110)
[2024-06-29 06:16] LABS: GLUCOMETER DEV NAME(LOC) ICU.S6; GLUCOSE,POINT OF CARE 81 MG/DL (70-110)
[2024-06-29 06:59] LABS: BASOPHILS % (AUTO) 0.6 % (0.0-2.0); EOSINOPHILS % (AUTO) 0.7 % (1.0-6.0); HEMATOCRIT 22.2 % (36-46); HEMOGLOBIN 7.4 g/dL (12.0-16.0); LYMPHOCYTES # (AUTO) 1.4 K/uL (1.0-4.8); LYMPHOCYTES % (AUTO) 5.6 % (22.0-44.0); MEAN CORPUSCULAR HEMOGLOBIN 28.5 pg (26.0-34.0); MEAN CORPUSCULAR HGB CONC 33.5 G/dL (31.0-37.0); MEAN CORPUSCULAR VOLUME 85 fL (80-100); MONOCYTES # (AUTO) 0.7 K/uL (0.1-1.0); NEUTROPHILS # (AUTO) 22.4 K/uL (1.8-7.7); PLATELET COUNT (AUTO) 207 K/uL (150-450); RED BLOOD CELL COUNT(AUTO) 2.61 MIL/uL (4.00-5.20); RED CELL DISTRIBUTION WIDTH 14.1 % (11.5-14.5); WHITE BLOOD COUNT (AUTO) 24.9 K/uL (4.5-11.0)
[2024-06-29 07:04] LABS: NEUTROPHILS % (AUTO) 90.1 % (40.0-70.0)
[2024-06-29 07:16] LABS: ALANINE AMINOTRANSFERASE 62 U/L (12-78); ALBUMIN 1.2 g/dL (3.4-5.0); ALKALINE PHOSPHATASE 235 U/L (46-116); ANION GAP 2 mmol/L (8-16); ASPARTATE AMINOTRANSFERASE 31 U/L (15-37); BILIRUBIN,TOTAL 0.4 mg/dL (0.1-1.0); CALCIUM, TOTAL 7.2 mg/dL (8.8-10.5); CARBON DIOXIDE 37 mmol/L (22-29); CHLORIDE 104 mmol/L (98-107); CREATININE 0.58 mg/dL (0.60-1.30); GLOMERULAR FILTR. RATE CALC > 60 mL/min (>60); GLUCOSE,RANDOM 85 mg/dL (70-110); PHOSPHORUS 3.3 mg/dL (2.5-4.9); SODIUM SERUM 143 mmol/L (136-145); UREA NITROGEN, BLOOD 28 mg/dL (7-18)
[2024-06-29 07:46] LABS: POTASSIUM 2.8 mmol/L (3.5-5.1)
[2024-06-29] MEDS: POTASSIUM CHL 10 MEQ/WATER 50 ML IV PRN (09:51)
[2024-06-29] MEDS ORDERED: SODIUM CHLORIDE 0.9% 250 ML IV ONE (10:22)
[2024-06-29] MEDS: MAGNESIUM SULFATE 1 GM in DEXTROSE 5%-WATER 50 ML IV ONE (16:20)
[2024-06-29 19:30] LABS: HEMATOCRIT 28.3 % (36-46); HEMOGLOBIN 9.1 g/dL (12.0-16.0)
[2024-06-29 19:31] LABS: ABG BASE EXCESS 11.3 mmol/L (-2.0-3.0); ABG CARBOXYHEMOGLOBIN 0.4 % (0.5-1.5); ABG HCO3 33.8 mmol/L (21.0-28.0); ABG METHEMOGLOBIN 1.3 % (0.0-1.5); ABG OXYGEN CONTENT 11.9 mL/dL (15.0-23.0); ABG OXYGEN SATURATION 88.8 % (94.0-98.0); ABG OXYHEMOGLOBIN 87.3 % (94.0-98.0); ABG PCO2 47 mmHg (32.0-45.0); ABG PH 7.488 (7.350-7.450); ABG TOTAL HEMOGLOBIN 9.7 G/dL (12.0-16.0); PO2, ARTERIAL BG 56.9 mmHg (83.0-108.0); SOURCE, BLOOD GAS ARTERIAL; TEMPERATURE, FAHRENHEIT, BG 98.6 FAHREN (96.0-98.6)
[2024-06-29 19:32] LABS: SITE, BLOOD GAS LFT BRACHIAL
[2024-06-29 19:33] LABS: INSIPIRATORY PRESSURE, BG 25 cm H2O; O2 DEVICE,BLOOD GAS VENT (ROOM AIR); PEEP,BG 5 cm H2O; VENT MODE, BG PC (ROOM AIR)
[2024-06-29 20:40] LABS: GLUCOMETER DEV NAME(LOC) ICU.S6; GLUCOSE,POINT OF CARE 91 MG/DL (70-110)
[2024-06-29 20:41] LABS: GLUCOMETER DEV NAME(LOC) ICU.S6; GLUCOSE,POINT OF CARE 82 MG/DL (70-110)
[2024-06-30] VITALS (18 sets, daily range): BP systolic 113–146; BP diastolic 29–72; PULSE 59–90; RESP 1–31; TEMP 91.6–98.7; O2SAT 89–100
[2024-06-30] MEDS ORDERED: INSULIN LISPRO 100 UNITS/ML SQ PRN (00:15)
[2024-06-30 02:56] LABS: GLUCOMETER DEV NAME(LOC) ICU.S6; GLUCOSE,POINT OF CARE 128 MG/DL (70-110)
[2024-06-30 04:41] LABS: BASOPHILS % (AUTO) 0.1 % (0.0-2.0); EOSINOPHILS % (AUTO) 0.1 % (1.0-6.0); HEMATOCRIT 24.9 % (36-46); HEMOGLOBIN 7.8 g/dL (12.0-16.0); LYMPHOCYTES % (AUTO) 1.5 % (22.0-44.0); MEAN CORPUSCULAR HEMOGLOBIN 26.8 pg (26.0-34.0); MEAN CORPUSCULAR HGB CONC 31.4 G/dL (31.0-37.0); MEAN CORPUSCULAR VOLUME 86 fL (80-100); MONOCYTES # (AUTO) 1.3 K/uL (0.1-1.0); NEUTROPHILS # (AUTO) 62.5 K/uL (1.8-7.7); PLATELET COUNT (AUTO) 328 K/uL (150-450); RED BLOOD CELL COUNT(AUTO) 2.91 MIL/uL (4.00-5.20); RED CELL DISTRIBUTION WIDTH 14.3 % (11.5-14.5)
[2024-06-30 04:42] LABS: ANION GAP 1 mmol/L (8-16); CALCIUM, TOTAL 7.4 mg/dL (8.8-10.5); CARBON DIOXIDE 36 mmol/L (22-29); CHLORIDE 103 mmol/L (98-107); CREATININE 0.72 mg/dL (0.60-1.30); GLOMERULAR FILTR. RATE CALC > 60 mL/min (>60); GLUCOSE,RANDOM 174 mg/dL (70-110); PHOSPHORUS 3.8 mg/dL (2.5-4.9); POTASSIUM 3.5 mmol/L (3.5-5.1); SODIUM SERUM 140 mmol/L (136-145); UREA NITROGEN, BLOOD 28 mg/dL (7-18)
[2024-06-30 05:08] LABS: NEUTROPHILS % (AUTO) 96.3 % (40.0-70.0)
[2024-06-30] MEDS: INSULIN LISPRO 100 UNITS/ML SQ PRN (05:40)
[2024-06-30 05:50] LABS: GLUCOMETER DEV NAME(LOC) ICUN.5; GLUCOSE,POINT OF CARE 154 MG/DL (70-110)
[2024-06-30] MEDS ORDERED: SODIUM CHLORIDE 0.9% 500 ML IV ONE ×2 (13:34→21:48)
[2024-06-30 14:39] LABS: APPEARANCE,URINE HAZY (CLEAR); BILIRUBIN,URINE NEGATIVE (NEGATIVE); COLOR,URINE YELLOW (YELLOW); GLUCOSE, URINE (UA) 150-200 mg/dL (NEGATIVE); KETONES,URINE TRACE mg/dL (NEGATIVE); LEUKOCYTE ESTERASE ,URINE NEGATIVE (NEGATIVE); NITRATE,URINE NEGATIVE (NEGATIVE); OCCULT BLOOD,URINE NEGATIVE (NEGATIVE); PH,URINE 5.5 (5.0-8.0); PROTEIN,URINE TRACE mg/dL (NEGATIVE); SPECIFIC GRAVITIY, URINE 1.018 (1.003-1.030); UROBILINOGEN,URINE <=1.0 mg/dL (<=1.0)
[2024-06-30 15:01] LABS: BACTERIA,URINE None Seen /HPF (None Seen); RBC,URINE None Seen /HPF (0-2); SQUAMOUS EPITHELIAL CELL,UR Few /LPF (None Seen); URIC ACID CRYSTALS,URINE Few /LPF (None Seen); WBC,URINE None Seen /HPF (0-5)
[2024-06-30] MEDS: *CLINICAL-MEROPENEM DOSING CLINICAL ONE (16:06)
[2024-06-30] MEDS: MEROPENEM 1 GM in SODIUM CHLORIDE 0.9% 100 ML IV SCH (17:12)
[2024-06-30 17:15] LABS: GLUCOMETER DEV NAME(LOC) ICUN.5; GLUCOSE,POINT OF CARE 168 MG/DL (70-110)
[2024-06-30] MEDS: VANCOMYCIN 1GM/WATER(PEG/NADA) 200 ML IV ONE (17:50)
[2024-06-30 19:18] LABS: ABG BASE EXCESS 10.3 mmol/L (-2.0-3.0); ABG CARBOXYHEMOGLOBIN 0.4 % (0.5-1.5); ABG HCO3 33.2 mmol/L (21.0-28.0); ABG METHEMOGLOBIN 0.3 % (0.0-1.5); ABG OXYGEN CONTENT 8.5 mL/dL (15.0-23.0); ABG OXYHEMOGLOBIN 98.3 % (94.0-98.0); ABG PCO2 46 mmHg (32.0-45.0); ABG PH 7.483 (7.350-7.450); ABG TOTAL HEMOGLOBIN 5.9 G/dL (12.0-16.0); PO2, ARTERIAL BG 124.8 mmHg (83.0-108.0); SOURCE, BLOOD GAS ARTERIAL; TEMPERATURE, FAHRENHEIT, BG 93.7 FAHREN (96.0-98.6)
[2024-06-30 19:19] LABS: ABG A-A DIFF O2 402.8 mmHg (10-20.0); O2 DEVICE,BLOOD GAS VENTILATOR (ROOM AIR); PEEP,BG 8 cm H2O; SITE, BLOOD GAS ARTERIAL LINE; SPONTANEOUS VT, BG 266 ml; VENT MODE, BG PC (ROOM AIR)
[2024-06-30 20:15] LABS: GLUCOMETER DEV NAME(LOC) ICU.S6; GLUCOSE,POINT OF CARE 128 MG/DL (70-110)
[2024-06-30 20:17] LABS: HEMATOCRIT 19.6 % (36-46); HEMOGLOBIN 6.4 g/dL (12.0-16.0)
[2024-06-30] MEDS: PANTOPRAZOLE SODIUM 80 MG in SODIUM CHLORIDE 0.9% 100 ML IV SCH (20:56)
[2024-06-30] MEDS: INSULIN GLARGINE,HUM.REC.ANLOG 100 UNITS/ML SQ SCH (21:01)
[2024-06-30 21:05] LABS: GLUCOMETER DEV NAME(LOC) ICUN.5; GLUCOSE,POINT OF CARE 124 MG/DL (70-110)
[2024-06-30] MEDS: OCTREOTIDE ACETATE 500 MCG in SODIUM CHLORIDE 0.9% 97.5 ML IV SCH (21:07)
[2024-06-30] MEDS: PANTOPRAZOLE SODIUM 40 MG/VIAL IVP ONE (21:11)
[2024-07-01] VITALS (18 sets, daily range): BP systolic 112–182; BP diastolic 41–58; PULSE 59–112; RESP 18; TEMP 92.7–96.9; O2SAT 94–100
[2024-07-01 00:11] LABS: GLUCOMETER DEV NAME(LOC) ICUN.5; GLUCOSE,POINT OF CARE 101 MG/DL (70-110)
[2024-07-01] MEDS ORDERED: SODIUM CHLORIDE 0.9% 250 ML IV ONE (01:15)
[2024-07-01 01:55] LABS: HEMATOCRIT 25.8 % (36-46); HEMOGLOBIN 8.7 g/dL (12.0-16.0)
[2024-07-01 05:31] LABS: GLUCOMETER DEV NAME(LOC) ICUN.5; GLUCOSE,POINT OF CARE 128 MG/DL (70-110)
[2024-07-01 05:50] LABS: BASOPHILS % (AUTO) 0.3 % (0.0-2.0); EOSINOPHILS % (AUTO) 0.1 % (1.0-6.0); HEMATOCRIT 24.5 % (36-46); HEMOGLOBIN 8.2 g/dL (12.0-16.0); LYMPHOCYTES # (AUTO) 0.6 K/uL (1.0-4.8); LYMPHOCYTES % (AUTO) 2.7 % (22.0-44.0); MEAN CORPUSCULAR HEMOGLOBIN 28.7 pg (26.0-34.0); MEAN CORPUSCULAR HGB CONC 33.5 G/dL (31.0-37.0); MEAN CORPUSCULAR VOLUME 86 fL (80-100); MONOCYTES # (AUTO) 0.5 K/uL (0.1-1.0); MONOCYTES % (AUTO) 2.1 % (2.0-9.0); NEUTROPHILS # (AUTO) 21.2 K/uL (1.8-7.7); PLATELET COUNT (AUTO) 228 K/uL (150-450); RED BLOOD CELL COUNT(AUTO) 2.86 MIL/uL (4.00-5.20); RED CELL DISTRIBUTION WIDTH 14.4 % (11.5-14.5); WHITE BLOOD COUNT (AUTO) 22.3 K/uL (4.5-11.0)
[2024-07-01 06:09] LABS: NEUTROPHILS % (AUTO) 94.8 % (40.0-70.0)
[2024-07-01 06:13] LABS: ALANINE AMINOTRANSFERASE 37 U/L (12-78); ALBUMIN 1.2 g/dL (3.4-5.0); ALKALINE PHOSPHATASE 156 U/L (46-116); ANION GAP 4 mmol/L (8-16); ASPARTATE AMINOTRANSFERASE 20 U/L (15-37); BILIRUBIN,TOTAL 0.6 mg/dL (0.1-1.0); CALCIUM, TOTAL 7.6 mg/dL (8.8-10.5); CARBON DIOXIDE 35 mmol/L (22-29); CHLORIDE 105 mmol/L (98-107); CREATININE 0.55 mg/dL (0.60-1.30); GLOMERULAR FILTR. RATE CALC > 60 mL/min (>60); GLUCOSE,RANDOM 139 mg/dL (70-110); PHOSPHORUS 3.7 mg/dL (2.5-4.9); POTASSIUM 3.6 mmol/L (3.5-5.1); SODIUM SERUM 144 mmol/L (136-145); TOTAL PROTEIN, SERUM 5.1 g/dL (6.4-8.2); UREA NITROGEN, BLOOD 19 mg/dL (7-18)
[2024-07-01] MEDS: VANCOMYCIN HCL 750 MG in DEXTROSE 5%-WATER 250 ML IV SCH (07:37)
[2024-07-01] MEDS ORDERED: INSULIN GLARGINE,HUM.REC.ANLOG 100 UNITS/ML SQ SCH (09:00)
[2024-07-01] MEDS: MAGNESIUM SULFATE 1 GM in DEXTROSE 5%-WATER 50 ML IV ONE (10:04)
[2024-07-01 11:22] LABS: ABG BASE EXCESS 11.7 mmol/L (-2.0-3.0); ABG CARBOXYHEMOGLOBIN 0.3 % (0.5-1.5); ABG HCO3 34.1 mmol/L (21.0-28.0); ABG METHEMOGLOBIN 0.2 % (0.0-1.5); ABG OXYGEN CONTENT 13.4 mL/dL (15.0-23.0); ABG OXYHEMOGLOBIN 98.5 % (94.0-98.0); ABG PCO2 53 mmHg (32.0-45.0); ABG PH 7.449 (7.350-7.450); ABG TOTAL HEMOGLOBIN 9.4 G/dL (12.0-16.0); PO2, ARTERIAL BG 153.5 mmHg (83.0-108.0); SOURCE, BLOOD GAS ARTERIAL; TEMPERATURE, FAHRENHEIT, BG 96.4 FAHREN (96.0-98.6)
[2024-07-01 11:23] LABS: ALLEN TEST, BLOOD GAS Positive; INSIPIRATORY PRESSURE, BG 25 cm H2O; O2 DEVICE,BLOOD GAS VENTILATOR (ROOM AIR); PEEP,BG 8 cm H2O; SITE, BLOOD GAS ARTERIAL LINE; SPONTANEOUS VT, BG 322 ml; VENT MODE, BG Press. Control Vent (ROOM AIR)
[2024-07-01 11:24] LABS: INSPIRATORY TIME, BG 1 SEC
[2024-07-01 13:06] LABS: GLUCOMETER DEV NAME(LOC) ICU.S6; GLUCOSE,POINT OF CARE 248 MG/DL (70-110)
[2024-07-01] MEDS: INSULIN GLARGINE,HUM.REC.ANLOG 100 UNITS/ML SQ SCH (20:39)
[2024-07-01 22:50] LABS: GLUCOMETER DEV NAME(LOC) ICU.S6; GLUCOSE,POINT OF CARE 239 MG/DL (70-110)
[2024-07-01 23:56] LABS: GLUCOMETER DEV NAME(LOC) ICUN.5; GLUCOSE,POINT OF CARE 215 MG/DL (70-110)
[2024-07-02] VITALS (13 sets, daily range): BP systolic 121–139; BP diastolic 40–55; PULSE 48–69; RESP 18–19; TEMP 92.7–97.1; O2SAT 61–100
[2024-07-02] MEDS ORDERED: SODIUM CHLORIDE 0.9% 250 ML IV ONE (01:42)
[2024-07-02 05:36] LABS: GLUCOMETER DEV NAME(LOC) ICUN.5; GLUCOSE,POINT OF CARE 199 MG/DL (70-110)
[2024-07-02 06:01] LABS: BASOPHILS % (AUTO) 0.3 % (0.0-2.0); EOSINOPHILS % (AUTO) 0.1 % (1.0-6.0); HEMATOCRIT 23.9 % (36-46); HEMOGLOBIN 7.9 g/dL (12.0-16.0); LYMPHOCYTES # (AUTO) 0.5 K/uL (1.0-4.8); LYMPHOCYTES % (AUTO) 3.4 % (22.0-44.0); MEAN CORPUSCULAR HEMOGLOBIN 28.6 pg (26.0-34.0); MEAN CORPUSCULAR HGB CONC 33.2 G/dL (31.0-37.0); MEAN CORPUSCULAR VOLUME 86 fL (80-100); MONOCYTES # (AUTO) 0.2 K/uL (0.1-1.0); MONOCYTES % (AUTO) 1.5 % (2.0-9.0); NEUTROPHILS # (AUTO) 15.1 K/uL (1.8-7.7); PLATELET COUNT (AUTO) 274 K/uL (150-450); RED BLOOD CELL COUNT(AUTO) 2.77 MIL/uL (4.00-5.20)
[2024-07-02 06:02] LABS: NEUTROPHILS % (AUTO) 94.7 % (40.0-70.0)
[2024-07-02 06:06] LABS: ANION GAP 0 mmol/L (8-16); CALCIUM, TOTAL 7.7 mg/dL (8.8-10.5); CARBON DIOXIDE 38 mmol/L (22-29); CHLORIDE 104 mmol/L (98-107); CREATININE 0.65 mg/dL (0.60-1.30); GLOMERULAR FILTR. RATE CALC > 60 mL/min (>60); GLUCOSE,RANDOM 239 mg/dL (70-110); PHOSPHORUS 2.7 mg/dL (2.5-4.9); POTASSIUM 3.9 mmol/L (3.5-5.1); SODIUM SERUM 142 mmol/L (136-145); UREA NITROGEN, BLOOD 19 mg/dL (7-18); VANCOMYCIN,RANDOM 17.4 mcg/mL (25.0-50.0)
[2024-07-02 07:21] LABS: GLUCOMETER DEV NAME(LOC) ICU.S6; GLUCOSE,POINT OF CARE 210 MG/DL (70-110)
[2024-07-02 18:41] LABS: GLUCOMETER DEV NAME(LOC) ICU.S6; GLUCOSE,POINT OF CARE 168 MG/DL (70-110)
[2024-07-02 18:56] LABS: GLUCOMETER DEV NAME(LOC) ICUN.5; GLUCOSE,POINT OF CARE 196 MG/DL (70-110)
[2024-07-03] VITALS (16 sets, daily range): BP systolic 117–187; BP diastolic 38–76; PULSE 49–105; RESP 18; TEMP 93–95.8; O2SAT 91–100
[2024-07-03 02:06] LABS: GLUCOMETER DEV NAME(LOC) ICUN.5; GLUCOSE,POINT OF CARE 218 MG/DL (70-110)
[2024-07-03 02:06] LABS: GLUCOMETER DEV NAME(LOC) ICUN.5; GLUCOSE,POINT OF CARE 232 MG/DL (70-110)
[2024-07-03] MEDS: ALBUTEROL SULFATE 2.5 MG/0.5 ML NEB SOLUTION NEB PRN (03:53)
[2024-07-03] MEDS: IPRATROPIUM BROMIDE 0.5 MG/2.5 ML NEB SOLUTION NEB PRN (03:53)
[2024-07-03 05:51] LABS: GLUCOMETER DEV NAME(LOC) ICU.S6; GLUCOSE,POINT OF CARE 213 MG/DL (70-110)
[2024-07-03 06:27] LABS: BASOPHILS % (AUTO) 0.3 % (0.0-2.0); EOSINOPHILS % (AUTO) 0.3 % (1.0-6.0); HEMATOCRIT 23.7 % (36-46); HEMOGLOBIN 8.2 g/dL (12.0-16.0); LYMPHOCYTES # (AUTO) 0.7 K/uL (1.0-4.8); LYMPHOCYTES % (AUTO) 6.8 % (22.0-44.0); MEAN CORPUSCULAR HEMOGLOBIN 29.4 pg (26.0-34.0); MEAN CORPUSCULAR HGB CONC 34.5 G/dL (31.0-37.0); MEAN CORPUSCULAR VOLUME 85 fL (80-100); MONOCYTES # (AUTO) 0.3 K/uL (0.1-1.0); NEUTROPHILS # (AUTO) 9.4 K/uL (1.8-7.7); PLATELET COUNT (AUTO) 271 K/uL (150-450); RED BLOOD CELL COUNT(AUTO) 2.79 MIL/uL (4.00-5.20); WHITE BLOOD COUNT (AUTO) 10.4 K/uL (4.5-11.0)
[2024-07-03 06:46] LABS: ALANINE AMINOTRANSFERASE 24 U/L (12-78); ALBUMIN 1.3 g/dL (3.4-5.0); ALKALINE PHOSPHATASE 124 U/L (46-116); ANION GAP -1 mmol/L (8-16); ASPARTATE AMINOTRANSFERASE 13 U/L (15-37); BILIRUBIN,TOTAL 0.4 mg/dL (0.1-1.0); CALCIUM, TOTAL 7.2 mg/dL (8.8-10.5); CHLORIDE 104 mmol/L (98-107); CREATININE 0.57 mg/dL (0.60-1.30); GLOMERULAR FILTR. RATE CALC > 60 mL/min (>60); GLUCOSE,RANDOM 242 mg/dL (70-110); SODIUM SERUM 145 mmol/L (136-145); TOTAL PROTEIN, SERUM 5.4 g/dL (6.4-8.2); UREA NITROGEN, BLOOD 19 mg/dL (7-18)
[2024-07-03 07:03] LABS: CARBON DIOXIDE 42 mmol/L (22-29); NEUTROPHILS % (AUTO) 89.6 % (40.0-70.0)
[2024-07-03 07:04] LABS: POTASSIUM 2.8 mmol/L (3.5-5.1)
[2024-07-03 08:33] LABS: C.DIFF GDH ANTIGEN, Stool Negative (Negative); C.DIFF TOXINS A&B, Stool Negative (Negative)
[2024-07-03 08:40] LABS: ABG BASE EXCESS 13.5 mmol/L (-2.0-3.0); ABG CARBOXYHEMOGLOBIN 0.3 % (0.5-1.5); ABG HCO3 35.6 mmol/L (21.0-28.0); ABG METHEMOGLOBIN 0.2 % (0.0-1.5); ABG OXYGEN SATURATION 91.1 % (94.0-98.0); ABG OXYHEMOGLOBIN 90.6 % (94.0-98.0); ABG PCO2 47 mmHg (32.0-45.0); ABG PH 7.504 (7.350-7.450); ABG TOTAL HEMOGLOBIN 9.4 G/dL (12.0-16.0); SOURCE, BLOOD GAS ARTERIAL; TEMPERATURE, FAHRENHEIT, BG 94.1 FAHREN (96.0-98.6)
[2024-07-03 08:41] LABS: ABG A-A DIFF O2 182.2 mmHg (10-20.0); O2 DEVICE,BLOOD GAS VENTILATOR (ROOM AIR); PEEP,BG 5 cm H2O; SITE, BLOOD GAS ARTERIAL LINE; VENT MODE, BG Press. Control Vent (ROOM AIR)
[2024-07-03 08:42] LABS: INSIPIRATORY PRESSURE, BG 25 cm H2O; INSPIRATORY TIME, BG 1 SEC; SPONTANEOUS VT, BG 345 ml
[2024-07-03] MEDS: POTASSIUM CHLORIDE 10% 40 MEQ/30 ML LIQUID UDCUP GT ONE (10:43)
[2024-07-03] MEDS: POTASSIUM CHLORIDE 10 MEQ ER TABLET PO ONE (12:39)
[2024-07-03 12:45] LABS: GLUCOMETER DEV NAME(LOC) ICU.S6; GLUCOSE,POINT OF CARE 256 MG/DL (70-110)
[2024-07-03 17:41] LABS: GLUCOMETER DEV NAME(LOC) ICU.S6; GLUCOSE,POINT OF CARE 197 MG/DL (70-110)
[2024-07-03] MEDS: PANTOPRAZOLE SODIUM 40 MG/VIAL IVP SCH (21:25)
[2024-07-04] VITALS (14 sets, daily range): BP systolic 132–159; BP diastolic 48–55; PULSE 48–72; RESP 18–22; TEMP 93.3–96.2; O2SAT 95–100
[2024-07-04] MEDS ORDERED: SODIUM CHLORIDE 0.9% 250 ML IV ONE (01:41)
[2024-07-04 01:50] LABS: GLUCOMETER DEV NAME(LOC) ICU.S6; GLUCOSE,POINT OF CARE 149 MG/DL (70-110)
[2024-07-04 01:50] LABS: GLUCOMETER DEV NAME(LOC) ICUN.5; GLUCOSE,POINT OF CARE 154 MG/DL (70-110)
[2024-07-04 06:19] LABS: BASOPHILS % (AUTO) 0.1 % (0.0-2.0); EOSINOPHILS % (AUTO) 0.3 % (1.0-6.0); HEMATOCRIT 28.5 % (36-46); HEMOGLOBIN 9.4 g/dL (12.0-16.0); LYMPHOCYTES # (AUTO) 0.8 K/uL (1.0-4.8); LYMPHOCYTES % (AUTO) 4.2 % (22.0-44.0); MEAN CORPUSCULAR HEMOGLOBIN 28.5 pg (26.0-34.0); MEAN CORPUSCULAR HGB CONC 33.1 G/dL (31.0-37.0); MEAN CORPUSCULAR VOLUME 86 fL (80-100); MONOCYTES # (AUTO) 0.4 K/uL (0.1-1.0); MONOCYTES % (AUTO) 2.3 % (2.0-9.0); NEUTROPHILS # (AUTO) 17.8 K/uL (1.8-7.7); PLATELET COUNT (AUTO) 342 K/uL (150-450); RED BLOOD CELL COUNT(AUTO) 3.32 MIL/uL (4.00-5.20); RED CELL DISTRIBUTION WIDTH 14.9 % (11.5-14.5); WHITE BLOOD COUNT (AUTO) 19.2 K/uL (4.5-11.0)
[2024-07-04 06:28] LABS: NEUTROPHILS % (AUTO) 93.1 % (40.0-70.0)
[2024-07-04 06:30] LABS: GLUCOMETER DEV NAME(LOC) ICU.S6; GLUCOSE,POINT OF CARE 137 MG/DL (70-110)
[2024-07-04 06:32] LABS: CALCIUM, TOTAL 7.7 mg/dL (8.8-10.5); CHLORIDE 103 mmol/L (98-107); CREATININE 0.56 mg/dL (0.60-1.30); GLOMERULAR FILTR. RATE CALC > 60 mL/min (>60); GLUCOSE,RANDOM 148 mg/dL (70-110); POTASSIUM 3.9 mmol/L (3.5-5.1); SODIUM SERUM 143 mmol/L (136-145); UREA NITROGEN, BLOOD 20 mg/dL (7-18)
[2024-07-04 06:35] LABS: ANION GAP -2 mmol/L (8-16); CARBON DIOXIDE 42 mmol/L (22-29); MAGNESIUM 1.6 mg/dL (1.80-2.40); PHOSPHORUS 2.5 mg/dL (2.5-4.9)
[2024-07-04 08:08] LABS: ALBUMIN 1.5 g/dL (3.4-5.0)
[2024-07-04 13:39] LABS: ABG BASE EXCESS 13.6 mmol/L (-2.0-3.0); ABG CARBOXYHEMOGLOBIN 0.2 % (0.5-1.5); ABG HCO3 35.8 mmol/L (21.0-28.0); ABG METHEMOGLOBIN 0.3 % (0.0-1.5); ABG OXYGEN CONTENT 13.6 mL/dL (15.0-23.0); ABG OXYHEMOGLOBIN 94.5 % (94.0-98.0); ABG PCO2 43 mmHg (32.0-45.0); ABG PH 7.538 (7.350-7.450); ABG TOTAL HEMOGLOBIN 10.2 G/dL (12.0-16.0); PO2, ARTERIAL BG 61.5 mmHg (83.0-108.0); SOURCE, BLOOD GAS ARTERIAL; TEMPERATURE, FAHRENHEIT, BG 93.9 FAHREN (96.0-98.6)
[2024-07-04 13:40] LABS: ABG A-A DIFF O2 176.5 mmHg (10-20.0); O2 DEVICE,BLOOD GAS VENTILATOR (ROOM AIR); SITE, BLOOD GAS ARTERIAL LINE; VENT MODE, BG Press. Control Vent (ROOM AIR); VT, ABG 336 ml
[2024-07-04 13:41] LABS: INSIPIRATORY PRESSURE, BG 25 cm H2O; PEEP,BG 5 cm H2O; SPONTANEOUS VT, BG 336 ml
[2024-07-04 17:15] LABS: GLUCOMETER DEV NAME(LOC) ICU.S6; GLUCOSE,POINT OF CARE 121 MG/DL (70-110)
[2024-07-04] MEDS: MAGNESIUM SULFATE 3 GM in DEXTROSE 5%-WATER 100 ML IV ONE (17:49)
[2024-07-04] MEDS ORDERED: SODIUM CHLORIDE 0.9% 500 ML IV ONE (20:22)
[2024-07-04 23:40] LABS: GLUCOMETER DEV NAME(LOC) ICU.S6; GLUCOSE,POINT OF CARE 170 MG/DL (70-110)
[2024-07-05] VITALS (16 sets, daily range): BP systolic 96–150; BP diastolic 38–68; PULSE 47–108; RESP 18–21; TEMP 91.7–96.8; O2SAT 90–100
[2024-07-05] MEDS ORDERED: SODIUM CHLORIDE 0.9% 250 ML IV ONE (00:19)
[2024-07-05 05:41] LABS: BASOPHILS % (AUTO) 0.4 % (0.0-2.0); EOSINOPHILS % (AUTO) 0.8 % (1.0-6.0); HEMATOCRIT 28.1 % (36-46); HEMOGLOBIN 9.3 g/dL (12.0-16.0); LYMPHOCYTES # (AUTO) 0.9 K/uL (1.0-4.8); LYMPHOCYTES % (AUTO) 7.1 % (22.0-44.0); MEAN CORPUSCULAR HEMOGLOBIN 28.7 pg (26.0-34.0); MEAN CORPUSCULAR HGB CONC 33.2 G/dL (31.0-37.0); MEAN CORPUSCULAR VOLUME 86 fL (80-100); MONOCYTES # (AUTO) 0.4 K/uL (0.1-1.0); NEUTROPHILS # (AUTO) 11.5 K/uL (1.8-7.7); PLATELET COUNT (AUTO) 292 K/uL (150-450); RED BLOOD CELL COUNT(AUTO) 3.26 MIL/uL (4.00-5.20)
[2024-07-05 05:50] LABS: NEUTROPHILS % (AUTO) 88.7 % (40.0-70.0)
[2024-07-05 06:05] LABS: ALANINE AMINOTRANSFERASE 30 U/L (12-78); ALBUMIN 1.4 g/dL (3.4-5.0); ALKALINE PHOSPHATASE 147 U/L (46-116); ANION GAP 0 mmol/L (8-16); ASPARTATE AMINOTRANSFERASE 24 U/L (15-37); BILIRUBIN,TOTAL 0.3 mg/dL (0.1-1.0); CALCIUM, TOTAL 7.4 mg/dL (8.8-10.5); CHLORIDE 100 mmol/L (98-107); CREATININE 0.53 mg/dL (0.60-1.30); GLOMERULAR FILTR. RATE CALC > 60 mL/min (>60); GLUCOSE,RANDOM 252 mg/dL (70-110); SODIUM SERUM 141 mmol/L (136-145); TOTAL PROTEIN, SERUM 6.1 g/dL (6.4-8.2); UREA NITROGEN, BLOOD 23 mg/dL (7-18)
[2024-07-05 06:21] LABS: CARBON DIOXIDE 41 mmol/L (22-29)
[2024-07-05 06:22] LABS: POTASSIUM 2.9 mmol/L (3.5-5.1)
[2024-07-05 08:16] LABS: GLUCOMETER DEV NAME(LOC) ICUN.5; GLUCOSE,POINT OF CARE 180 MG/DL (70-110)
[2024-07-05 08:16] LABS: GLUCOMETER DEV NAME(LOC) ICUN.5; GLUCOSE,POINT OF CARE 221 MG/DL (70-110)
[2024-07-05 08:16] LABS: GLUCOMETER DEV NAME(LOC) ICUN.5; GLUCOSE,POINT OF CARE 179 MG/DL (70-110)
[2024-07-05 11:11] LABS: THYROID STIMULATING HORMONE 0.04 uIU/mL (0.36-3.74)
[2024-07-05 13:51] LABS: ABG BASE EXCESS 12.8 mmol/L (-2.0-3.0); ABG CARBOXYHEMOGLOBIN 0.2 % (0.5-1.5); ABG HCO3 35.3 mmol/L (21.0-28.0); ABG METHEMOGLOBIN 0.2 % (0.0-1.5); ABG OXYGEN CONTENT 12.2 mL/dL (15.0-23.0); ABG OXYGEN SATURATION 97.4 % (94.0-98.0); ABG PCO2 41 mmHg (32.0-45.0); ABG PH 7.548 (7.350-7.450); ABG TOTAL HEMOGLOBIN 8.8 G/dL (12.0-16.0); PO2, ARTERIAL BG 73.9 mmHg (83.0-108.0); SOURCE, BLOOD GAS ARTERIAL
[2024-07-05 13:53] LABS: ABG A-A DIFF O2 167.4 mmHg (10-20.0); O2 DEVICE,BLOOD GAS VENTILATOR (ROOM AIR); SITE, BLOOD GAS ARTERIAL LINE
[2024-07-05 13:54] LABS: VENT MODE, BG Press. Control Vent (ROOM AIR)
[2024-07-05 13:55] LABS: INSIPIRATORY PRESSURE, BG 25 cm H2O; PEEP,BG 5 cm H2O; SPONTANEOUS VT, BG 246 ml; VT, ABG 246 ml
[2024-07-05] MEDS: HYDROCORTISONE SOD SUCC 100 MG/2 ML VIAL IVP SCH (21:22)
[2024-07-05] MEDS: DEXTROSE 50%-WATER 25 GM/50 ML SYRINGE IVP PRN (21:27)
[2024-07-05 22:45] LABS: GLUCOMETER DEV NAME(LOC) ICU.S6; GLUCOSE,POINT OF CARE 66 MG/DL (70-110)
[2024-07-05 22:45] LABS: GLUCOMETER DEV NAME(LOC) ICU.S6; GLUCOSE,POINT OF CARE 177 MG/DL (70-110)
[2024-07-06] VITALS (14 sets, daily range): BP systolic 101–184; BP diastolic 46–65; PULSE 65–106; RESP 18–22; TEMP 95.7–98.7; O2SAT 91–100
[2024-07-06 00:21] LABS: GLUCOMETER DEV NAME(LOC) ICUN.5; GLUCOSE,POINT OF CARE 102 MG/DL (70-110)
[2024-07-06 00:21] LABS: GLUCOMETER DEV NAME(LOC) ICUN.5; GLUCOSE,POINT OF CARE 121 MG/DL (70-110)
[2024-07-06 00:21] LABS: GLUCOMETER DEV NAME(LOC) ICUN.5; GLUCOSE,POINT OF CARE 70 MG/DL (70-110)
[2024-07-06 04:46] LABS: GLUCOMETER DEV NAME(LOC) ICU.S6; GLUCOSE,POINT OF CARE 57 MG/DL (70-110)
[2024-07-06 04:55] LABS: GLUCOMETER DEV NAME(LOC) ICU.S6; GLUCOSE,POINT OF CARE 91 MG/DL (70-110)
[2024-07-06] MEDS ORDERED: SODIUM CHLORIDE 0.9% 250 ML IV ONE (05:31)
[2024-07-06 06:05] LABS: BASOPHILS % (AUTO) 0.3 % (0.0-2.0); EOSINOPHILS % (AUTO) 0.8 % (1.0-6.0); HEMATOCRIT 30.3 % (36-46); LYMPHOCYTES # (AUTO) 0.9 K/uL (1.0-4.8); LYMPHOCYTES % (AUTO) 4.5 % (22.0-44.0); MEAN CORPUSCULAR HEMOGLOBIN 28.6 pg (26.0-34.0); MEAN CORPUSCULAR VOLUME 87 fL (80-100); MONOCYTES # (AUTO) 0.4 K/uL (0.1-1.0); MONOCYTES % (AUTO) 1.9 % (2.0-9.0); NEUTROPHILS # (AUTO) 19.1 K/uL (1.8-7.7); PLATELET COUNT (AUTO) 332 K/uL (150-450); RED CELL DISTRIBUTION WIDTH 15.5 % (11.5-14.5); WHITE BLOOD COUNT (AUTO) 20.6 K/uL (4.5-11.0)
[2024-07-06 06:08] LABS: NEUTROPHILS % (AUTO) 92.5 % (40.0-70.0)
[2024-07-06 06:25] LABS: ANION GAP -2 mmol/L (8-16); CALCIUM, TOTAL 7.6 mg/dL (8.8-10.5); CHLORIDE 107 mmol/L (98-107); CREATININE 0.57 mg/dL (0.60-1.30); GLOMERULAR FILTR. RATE CALC > 60 mL/min (>60); GLUCOSE,RANDOM 107 mg/dL (70-110); POTASSIUM 3.4 mmol/L (3.5-5.1); SODIUM SERUM 146 mmol/L (136-145); UREA NITROGEN, BLOOD 23 mg/dL (7-18)
[2024-07-06 06:30] LABS: CARBON DIOXIDE 41 mmol/L (22-29)
[2024-07-06] MEDS: AmLODIPine BESYLATE 5 MG TABLET PO SCH (08:16)
[2024-07-06 08:35] LABS: GLUCOMETER DEV NAME(LOC) ICU.S6; GLUCOSE,POINT OF CARE 95 MG/DL (70-110)
[2024-07-06] MEDS: AmLODIPine BESYLATE 10 MG TABLET PO SCH (10:10)
[2024-07-06] MEDS: AcetaZOLAMIDE SODIUM 500 MG VIAL IVP ONE (11:45)
[2024-07-06 12:56] LABS: GLUCOMETER DEV NAME(LOC) ICU.S6; GLUCOSE,POINT OF CARE 141 MG/DL (70-110)
[2024-07-06 19:56] LABS: GLUCOMETER DEV NAME(LOC) ICUN.5; GLUCOSE,POINT OF CARE 121 MG/DL (70-110)
[2024-07-06] MEDS: CISATRACURIUM BESYLATE 100 MG in DEXTROSE 5%-WATER 240 ML IV PRN (22:04)
[2024-07-06 23:21] LABS: GLUCOMETER DEV NAME(LOC) ICUN.5; GLUCOSE,POINT OF CARE 143 MG/DL (70-110)
[2024-07-07] VITALS (13 sets, daily range): BP systolic 101–177; BP diastolic 42–70; PULSE 56–108; RESP 18–24; TEMP 94.5–97.6; O2SAT 85–99
[2024-07-07 00:36] LABS: GLUCOMETER DEV NAME(LOC) ICUN.5; GLUCOSE,POINT OF CARE 153 MG/DL (70-110)
[2024-07-07 05:31] LABS: GLUCOMETER DEV NAME(LOC) ICU.S6; GLUCOSE,POINT OF CARE 187 MG/DL (70-110)
[2024-07-07 06:00] LABS: BASOPHILS % (AUTO) 0.5 % (0.0-2.0); EOSINOPHILS % (AUTO) 1.6 % (1.0-6.0); HEMATOCRIT 28.9 % (36-46); HEMOGLOBIN 9.4 g/dL (12.0-16.0); LYMPHOCYTES # (AUTO) 1.2 K/uL (1.0-4.8); LYMPHOCYTES % (AUTO) 5.5 % (22.0-44.0); MEAN CORPUSCULAR HEMOGLOBIN 28.6 pg (26.0-34.0); MEAN CORPUSCULAR HGB CONC 32.5 G/dL (31.0-37.0); MEAN CORPUSCULAR VOLUME 88 fL (80-100); MONOCYTES # (AUTO) 0.6 K/uL (0.1-1.0); MONOCYTES % (AUTO) 2.9 % (2.0-9.0); PLATELET COUNT (AUTO) 319 K/uL (150-450); RED BLOOD CELL COUNT(AUTO) 3.29 MIL/uL (4.00-5.20); RED CELL DISTRIBUTION WIDTH 15.9 % (11.5-14.5); WHITE BLOOD COUNT (AUTO) 21.2 K/uL (4.5-11.0)
[2024-07-07 06:06] LABS: NEUTROPHILS % (AUTO) 89.5 % (40.0-70.0)
[2024-07-07 06:16] LABS: ALANINE AMINOTRANSFERASE 61 U/L (12-78); ALBUMIN 1.6 g/dL (3.4-5.0); ALKALINE PHOSPHATASE 208 U/L (46-116); ANION GAP 1 mmol/L (8-16); ASPARTATE AMINOTRANSFERASE 36 U/L (15-37); BILIRUBIN,TOTAL 0.4 mg/dL (0.1-1.0); CALCIUM, TOTAL 7.5 mg/dL (8.8-10.5); CARBON DIOXIDE 37 mmol/L (22-29); CHLORIDE 104 mmol/L (98-107); CREATININE 0.64 mg/dL (0.60-1.30); GLOMERULAR FILTR. RATE CALC > 60 mL/min (>60); GLUCOSE,RANDOM 201 mg/dL (70-110); POTASSIUM 3.3 mmol/L (3.5-5.1); SODIUM SERUM 142 mmol/L (136-145); UREA NITROGEN, BLOOD 21 mg/dL (7-18)
[2024-07-07 09:44] LABS: ABG BASE EXCESS 8.7 mmol/L (-2.0-3.0); ABG CARBOXYHEMOGLOBIN 0.2 % (0.5-1.5); ABG METHEMOGLOBIN 0.2 % (0.0-1.5); ABG OXYGEN CONTENT 13.7 mL/dL (15.0-23.0); ABG OXYGEN SATURATION 98.1 % (94.0-98.0); ABG OXYHEMOGLOBIN 97.7 % (94.0-98.0); ABG PCO2 60 mmHg (32.0-45.0); ABG PH 7.368 (7.350-7.450); ABG TOTAL HEMOGLOBIN 9.8 G/dL (12.0-16.0); SOURCE, BLOOD GAS ARTERIAL; TEMPERATURE, FAHRENHEIT, BG 94.8 FAHREN (96.0-98.6)
[2024-07-07 12:05] LABS: SITE, BLOOD GAS ARTERIAL LINE
[2024-07-07 12:12] LABS: INSIPIRATORY PRESSURE, BG 25 cm H2O; O2 DEVICE,BLOOD GAS VENTILATOR (ROOM AIR); PEEP,BG 5 cm H2O; VENT MODE, BG CPV (ROOM AIR); VT, ABG 290 ml
[2024-07-07 12:13] LABS: PO2, ARTERIAL BG 103.4 mmHg (83.0-108.0)
[2024-07-07 13:01] LABS: GLUCOMETER DEV NAME(LOC) ICUN.5; GLUCOSE,POINT OF CARE 155 MG/DL (70-110)
[2024-07-07 14:35] LABS: ABG OXYGEN SATURATION 99.2 % (94.0-98.0); SOURCE, BLOOD GAS ARTERIAL; TEMPERATURE, FAHRENHEIT, BG 95.5 FAHREN (96.0-98.6)
[2024-07-07 14:38] LABS: ABG A-A DIFF O2 120.4 mmHg (10-20.0); ABG CARBOXYHEMOGLOBIN 0.7 % (0.5-1.5); ABG HCO3 31.2 mmol/L (21.0-28.0); ABG METHEMOGLOBIN 1.4 % (0.0-1.5); ABG OXYGEN CONTENT 11.5 mL/dL (15.0-23.0); ABG OXYHEMOGLOBIN 97.1 % (94.0-98.0); ABG PCO2 39 mmHg (32.0-45.0); ABG PH 7.514 (7.350-7.450); ABG TOTAL HEMOGLOBIN 8.2 G/dL (12.0-16.0); PO2, ARTERIAL BG 121.4 mmHg (83.0-108.0); SITE, BLOOD GAS ARTERIAL LINE
[2024-07-07 14:39] LABS: INSIPIRATORY PRESSURE, BG 25 cm H2O; O2 DEVICE,BLOOD GAS VENTILATOR (ROOM AIR); PEEP,BG 5 cm H2O; VENT MODE, BG Press. Control Vent (ROOM AIR); VT, ABG 320 ml
[2024-07-07] MEDS: AcetaZOLAMIDE SODIUM 500 MG VIAL IVP SCH (16:38)
[2024-07-07 18:36] LABS: GLUCOMETER DEV NAME(LOC) ICUN.5; GLUCOSE,POINT OF CARE 146 MG/DL (70-110)
[2024-07-07] MEDS ORDERED: SODIUM CHLORIDE 0.9% 250 ML IV ONE (21:07)
[2024-07-07 22:01] LABS: GLUCOMETER DEV NAME(LOC) ICU.S6; GLUCOSE,POINT OF CARE 156 MG/DL (70-110)
[2024-07-08] VITALS (14 sets, daily range): BP systolic 108–186; BP diastolic 45–78; PULSE 68–110; RESP 18–21; TEMP 95.1–98.6; O2SAT 40–100
[2024-07-08 06:06] LABS: GLUCOMETER DEV NAME(LOC) ICU.S6; GLUCOSE,POINT OF CARE 167 MG/DL (70-110)
[2024-07-08 06:27] LABS: BASOPHILS % (AUTO) 0.7 % (0.0-2.0); EOSINOPHILS % (AUTO) 6.3 % (1.0-6.0); HEMATOCRIT 25.4 % (36-46); HEMOGLOBIN 8.6 g/dL (12.0-16.0); LYMPHOCYTES # (AUTO) 1.3 K/uL (1.0-4.8); LYMPHOCYTES % (AUTO) 13.2 % (22.0-44.0); MEAN CORPUSCULAR HGB CONC 33.9 G/dL (31.0-37.0); MEAN CORPUSCULAR VOLUME 89 fL (80-100); MONOCYTES # (AUTO) 0.4 K/uL (0.1-1.0); NEUTROPHILS # (AUTO) 7.2 K/uL (1.8-7.7); NEUTROPHILS % (AUTO) 75.8 % (40.0-70.0); PLATELET COUNT (AUTO) 242 K/uL (150-450); RED BLOOD CELL COUNT(AUTO) 2.87 MIL/uL (4.00-5.20); RED CELL DISTRIBUTION WIDTH 15.9 % (11.5-14.5); WHITE BLOOD COUNT (AUTO) 9.5 K/uL (4.5-11.0)
[2024-07-08 06:32] LABS: ANION GAP 2 mmol/L (8-16); CALCIUM, TOTAL 7.8 mg/dL (8.8-10.5); CARBON DIOXIDE 34 mmol/L (22-29); CHLORIDE 105 mmol/L (98-107); CREATININE 0.62 mg/dL (0.60-1.30); GLOMERULAR FILTR. RATE CALC > 60 mL/min (>60); GLUCOSE,RANDOM 185 mg/dL (70-110); POTASSIUM 3.4 mmol/L (3.5-5.1); SODIUM SERUM 141 mmol/L (136-145); UREA NITROGEN, BLOOD 22 mg/dL (7-18)
[2024-07-08 08:05] LABS: ABG HCO3 26.1 mmol/L (21.0-28.0); ABG METHEMOGLOBIN 0.2 % (0.0-1.5); ABG OXYGEN CONTENT 11.2 mL/dL (15.0-23.0); ABG OXYGEN SATURATION 97.9 % (94.0-98.0); ABG OXYHEMOGLOBIN 96.7 % (94.0-98.0); ABG PCO2 40 mmHg (32.0-45.0); ABG PH 7.436 (7.350-7.450); ABG TOTAL HEMOGLOBIN 8.1 G/dL (12.0-16.0); O2 DEVICE,BLOOD GAS VENTILATOR (ROOM AIR); SITE, BLOOD GAS ARTERIAL LINE; SOURCE, BLOOD GAS ARTERIAL; TEMPERATURE, FAHRENHEIT, BG 98.1 FAHREN (96.0-98.6); VENT MODE, BG Press. Control Vent (ROOM AIR)
[2024-07-08 08:06] LABS: INSIPIRATORY PRESSURE, BG 25 cm H2O; PEEP,BG 5 cm H2O; SPONTANEOUS VT, BG 311 ml
[2024-07-08 08:07] LABS: INSPIRATORY TIME, BG 0.95 SEC
[2024-07-08] MEDS: AMINO ACIDS/PROTEIN HYDROLYS 30 ML LIQUID TUBE GT SCH (08:12)
[2024-07-08 14:15] LABS: GLUCOMETER DEV NAME(LOC) ICU.S6; GLUCOSE,POINT OF CARE 147 MG/DL (70-110)
[2024-07-08] MEDS: CefTRIAXone 1 GM/DEXTROSE 50 ML IV SCH (18:09)
[2024-07-08 18:31] LABS: GLUCOMETER DEV NAME(LOC) ICU.S6; GLUCOSE,POINT OF CARE 222 MG/DL (70-110)
[2024-07-09] VITALS (24 sets, daily range): BP systolic 83–151; BP diastolic 35–64; PULSE 65–123; RESP 18–22; TEMP 96.4–98.4; O2SAT 94–100
[2024-07-09 00:10] LABS: GLUCOMETER DEV NAME(LOC) ICUN.5; GLUCOSE,POINT OF CARE 242 MG/DL (70-110)
[2024-07-09 05:51] LABS: ANION GAP 1 mmol/L (8-16); BASOPHILS % (AUTO) 0.4 % (0.0-2.0); CARBON DIOXIDE 34 mmol/L (22-29); CHLORIDE 104 mmol/L (98-107); CREATININE 0.63 mg/dL (0.60-1.30); EOSINOPHILS % (AUTO) 4.3 % (1.0-6.0); GLOMERULAR FILTR. RATE CALC > 60 mL/min (>60); GLUCOSE,RANDOM 190 mg/dL (70-110); HEMATOCRIT 24.6 % (36-46); HEMOGLOBIN 8.2 g/dL (12.0-16.0); LYMPHOCYTES # (AUTO) 0.8 K/uL (1.0-4.8); LYMPHOCYTES % (AUTO) 6.6 % (22.0-44.0); MEAN CORPUSCULAR HEMOGLOBIN 29.5 pg (26.0-34.0); MEAN CORPUSCULAR HGB CONC 33.3 G/dL (31.0-37.0); MEAN CORPUSCULAR VOLUME 89 fL (80-100); MONOCYTES # (AUTO) 0.6 K/uL (0.1-1.0); MONOCYTES % (AUTO) 4.9 % (2.0-9.0); NEUTROPHILS # (AUTO) 9.9 K/uL (1.8-7.7); NEUTROPHILS % (AUTO) 83.8 % (40.0-70.0); PLATELET COUNT (AUTO) 227 K/uL (150-450); POTASSIUM 3.4 mmol/L (3.5-5.1); RED BLOOD CELL COUNT(AUTO) 2.77 MIL/uL (4.00-5.20); RED CELL DISTRIBUTION WIDTH 15.5 % (11.5-14.5); SODIUM SERUM 139 mmol/L (136-145); UREA NITROGEN, BLOOD 24 mg/dL (7-18); WHITE BLOOD COUNT (AUTO) 11.8 K/uL (4.5-11.0)
[2024-07-09 05:53] LABS: PROTHROMBIN TIME 10.7 SEC (9.4-11.6)
[2024-07-09] MEDS ORDERED: RINGERS SOLUTION,LACTATED 1,000 ML IV ONE (12:12)
[2024-07-09] MEDS ORDERED: SODIUM CHLORIDE 0.9% 1,000 ML ONE (12:12)
[2024-07-09] MEDS ORDERED: SODIUM CHLORIDE 0.9% 0 ML ONE (12:12)
[2024-07-09] MEDS ORDERED: LIDOCAINE/PF 1% 30 ML VIAL ONE (12:12)
[2024-07-09] MEDS ORDERED: BUPIVACAINE HCL/PF 0.25% 30 ML VIAL ONE (12:12)
[2024-07-09 12:24] LABS: ABG BASE EXCESS 1.4 mmol/L (-2.0-3.0); ABG HCO3 25.3 mmol/L (21.0-28.0); ABG PCO2 52 mmHg (32.0-45.0); ABG PH 7.339 (7.350-7.450); ABG TOTAL HEMOGLOBIN 9.7 G/dL (12.0-16.0); PO2, ARTERIAL BG 67.6 mmHg (83.0-108.0); SITE, BLOOD GAS ARTERIAL LINE; SOURCE, BLOOD GAS ARTERIAL
[2024-07-09 12:25] LABS: ABG A-A DIFF O2 230.9 mmHg (10-20.0); ABG CARBOXYHEMOGLOBIN 0.7 % (0.5-1.5); ABG METHEMOGLOBIN 0.3 % (0.0-1.5); ABG OXYGEN CONTENT 12.7 mL/dL (15.0-23.0); ABG OXYGEN SATURATION 93.6 % (94.0-98.0); ABG OXYHEMOGLOBIN 92.7 % (94.0-98.0); INSIPIRATORY PRESSURE, BG 25 cm H2O; O2 DEVICE,BLOOD GAS VENTILATOR (ROOM AIR); PEEP,BG 5 cm H2O; SPONTANEOUS VT, BG 308 ml; VENT MODE, BG Press. Control Vent (ROOM AIR); VT, ABG 308 ml
[2024-07-09 12:26] LABS: TEMPERATURE, FAHRENHEIT, BG 98.4 FAHREN (96.0-98.6)
[2024-07-09] MEDS: AcetaZOLAMIDE SODIUM 500 MG VIAL IVP ONE (13:13)
[2024-07-09] MEDS ORDERED: SODIUM CHLORIDE 0.9% 250 ML IV ONE ×2 (13:14→16:41)
[2024-07-09] MEDS: DOXYCYCLINE HYCLATE 100 MG/VIAL IPL ONE (13:46)
[2024-07-09] MEDS: BUMETANIDE 0.25 MG/ML 4 ML VIAL IVP ONE (13:47)
[2024-07-09 17:05] LABS: GLUCOMETER DEV NAME(LOC) ICU.S6; GLUCOSE,POINT OF CARE 197 MG/DL (70-110)
[2024-07-09 17:05] LABS: GLUCOMETER DEV NAME(LOC) ICU.S6; GLUCOSE,POINT OF CARE 170 MG/DL (70-110)
[2024-07-09 17:10] LABS: GLUCOMETER DEV NAME(LOC) ICU.S6; GLUCOSE,POINT OF CARE 184 MG/DL (70-110)
[2024-07-09] MEDS ORDERED: SODIUM CHLORIDE 0.9% 500 ML IV ONE (17:10)
[2024-07-09 20:12] LABS: BASOPHILS % (AUTO) 0.6 % (0.0-2.0); EOSINOPHILS % (AUTO) 7.7 % (1.0-6.0); HEMATOCRIT 33.3 % (36-46); HEMOGLOBIN 10.9 g/dL (12.0-16.0); LYMPHOCYTES # (AUTO) 1.1 K/uL (1.0-4.8); LYMPHOCYTES % (AUTO) 9.1 % (22.0-44.0); MEAN CORPUSCULAR HEMOGLOBIN 28.1 pg (26.0-34.0); MEAN CORPUSCULAR HGB CONC 32.6 G/dL (31.0-37.0); MEAN CORPUSCULAR VOLUME 86 fL (80-100); MONOCYTES # (AUTO) 0.4 K/uL (0.1-1.0); MONOCYTES % (AUTO) 3.6 % (2.0-9.0); NEUTROPHILS # (AUTO) 9.4 K/uL (1.8-7.7); PLATELET COUNT (AUTO) 190 K/uL (150-450); RED BLOOD CELL COUNT(AUTO) 3.87 MIL/uL (4.00-5.20); RED CELL DISTRIBUTION WIDTH 16.7 % (11.5-14.5); WHITE BLOOD COUNT (AUTO) 11.9 K/uL (4.5-11.0)
[2024-07-09 21:31] LABS: GLUCOMETER DEV NAME(LOC) ICU.S6; GLUCOSE,POINT OF CARE 156 MG/DL (70-110)
[2024-07-09 23:56] LABS: GLUCOMETER DEV NAME(LOC) ICUN.5; GLUCOSE,POINT OF CARE 144 MG/DL (70-110)
[2024-07-10] VITALS (13 sets, daily range): BP systolic 118–176; BP diastolic 43–83; PULSE 69–105; RESP 22–42; TEMP 95.4–98.4; O2SAT 94–99
[2024-07-10] MEDS: HydrALAZINE HCL 20 MG/ML VIAL IVP PRN (00:21)
[2024-07-10 04:15] LABS: BASOPHILS % (AUTO) 0.7 % (0.0-2.0); EOSINOPHILS % (AUTO) 4.5 % (1.0-6.0); HEMATOCRIT 37.4 % (36-46); HEMOGLOBIN 12.4 g/dL (12.0-16.0); LYMPHOCYTES # (AUTO) 0.9 K/uL (1.0-4.8); LYMPHOCYTES % (AUTO) 6.7 % (22.0-44.0); MEAN CORPUSCULAR HEMOGLOBIN 28.5 pg (26.0-34.0); MEAN CORPUSCULAR HGB CONC 33.2 G/dL (31.0-37.0); MEAN CORPUSCULAR VOLUME 86 fL (80-100); MONOCYTES # (AUTO) 0.3 K/uL (0.1-1.0); MONOCYTES % (AUTO) 2.4 % (2.0-9.0); NEUTROPHILS # (AUTO) 11.3 K/uL (1.8-7.7); PLATELET COUNT (AUTO) 205 K/uL (150-450); RED BLOOD CELL COUNT(AUTO) 4.37 MIL/uL (4.00-5.20); RED CELL DISTRIBUTION WIDTH 16.7 % (11.5-14.5); WHITE BLOOD COUNT (AUTO) 13.2 K/uL (4.5-11.0)
[2024-07-10 04:36] LABS: NEUTROPHILS % (AUTO) 85.7 % (40.0-70.0)
[2024-07-10 04:45] LABS: ALANINE AMINOTRANSFERASE 28 U/L (12-78); ALBUMIN 1.6 g/dL (3.4-5.0); ALKALINE PHOSPHATASE 144 U/L (46-116); ANION GAP 4 mmol/L (8-16); ASPARTATE AMINOTRANSFERASE 17 U/L (15-37); BILIRUBIN,TOTAL 0.4 mg/dL (0.1-1.0); CARBON DIOXIDE 31 mmol/L (22-29); CHLORIDE 101 mmol/L (98-107); CREATININE 0.59 mg/dL (0.60-1.30); GLOMERULAR FILTR. RATE CALC > 60 mL/min (>60); GLUCOSE,RANDOM 200 mg/dL (70-110); POTASSIUM 3.2 mmol/L (3.5-5.1); SODIUM SERUM 136 mmol/L (136-145); TOTAL PROTEIN, SERUM 6.1 g/dL (6.4-8.2); UREA NITROGEN, BLOOD 22 mg/dL (7-18)
[2024-07-10 05:10] LABS: ABG BASE EXCESS -0.8 mmol/L (-2.0-3.0); ABG CARBOXYHEMOGLOBIN 0.7 % (0.5-1.5); ABG HCO3 23.5 mmol/L (21.0-28.0); ABG METHEMOGLOBIN 0.1 % (0.0-1.5); ABG OXYGEN CONTENT 17.1 mL/dL (15.0-23.0); ABG OXYGEN SATURATION 97.6 % (94.0-98.0); ABG OXYHEMOGLOBIN 96.8 % (94.0-98.0); ABG PCO2 45 mmHg (32.0-45.0); ABG TOTAL HEMOGLOBIN 12.5 G/dL (12.0-16.0); PO2, ARTERIAL BG 89.5 mmHg (83.0-108.0); SOURCE, BLOOD GAS ARTERIAL; TEMPERATURE, FAHRENHEIT, BG 95.5 FAHREN (96.0-98.6)
[2024-07-10 05:13] LABS: SITE, BLOOD GAS ARTERIAL LINE
[2024-07-10 05:14] LABS: INSIPIRATORY PRESSURE, BG 25 cm H2O; O2 DEVICE,BLOOD GAS VENTILATOR (ROOM AIR); PEEP,BG 5 cm H2O; SPONTANEOUS VT, BG 263 ml; VENT MODE, BG Press. Control Vent (ROOM AIR); VT, ABG 263 ml
[2024-07-10] MEDS: SODIUM CHLORIDE 0.9% 1,000 ML IV ONE (05:33)
[2024-07-10] MEDS ORDERED: LIDOCAINE/PF 1% 30 ML VIAL ONE (06:22)
[2024-07-10] MEDS: DOXYCYCLINE HYCLATE 100 MG/VIAL IPL ONE (07:00)
[2024-07-10] MEDS: BUPIVACAINE HCL/PF 0.25% 30 ML VIAL ONE (08:00)
[2024-07-10] MEDS: LIDOCAINE 1% 10 ML VIAL ID ONE (09:15)
[2024-07-10] MEDS ORDERED: RINGERS SOLUTION,LACTATED 0 ML IV ONE (09:52)
[2024-07-10] MEDS: AcetaZOLAMIDE SODIUM 500 MG VIAL IVP ONE (10:10)
[2024-07-10 10:36] LABS: GLUCOMETER DEV NAME(LOC) ICU.S6; GLUCOSE,POINT OF CARE 178 MG/DL (70-110)
[2024-07-10] MEDS ORDERED: SODIUM CHLORIDE 0.9% 500 ML IV ONE (10:40)
[2024-07-10] MEDS: POTASSIUM CHL 10 MEQ/WATER 50 ML IV SCH (11:00)
[2024-07-10] MEDS ORDERED: FentaNYL CITRATE PF 100 MCG/2 ML VIAL IVP ONE (12:00)
[2024-07-10] MEDS ORDERED: MIDAZOLAM HCL 2 MG/2 ML VIAL IVP ONE (12:00)
[2024-07-10 12:15] LABS: ABG BASE EXCESS -2.4 mmol/L (-2.0-3.0); ABG HCO3 22.3 mmol/L (21.0-28.0); ABG METHEMOGLOBIN 0.3 % (0.0-1.5); ABG OXYGEN CONTENT 16.3 mL/dL (15.0-23.0); ABG OXYGEN SATURATION 95.6 % (94.0-98.0); ABG OXYHEMOGLOBIN 94.4 % (94.0-98.0); ABG PCO2 44 mmHg (32.0-45.0); ABG PH 7.341 (7.350-7.450); ABG TOTAL HEMOGLOBIN 12.2 G/dL (12.0-16.0); PO2, ARTERIAL BG 73.9 mmHg (83.0-108.0); SOURCE, BLOOD GAS ARTERIAL; TEMPERATURE, FAHRENHEIT, BG 96.5 FAHREN (96.0-98.6)
[2024-07-10] MEDS: BUMETANIDE 0.25 MG/ML 4 ML VIAL IVP ONE (12:38)
[2024-07-10 12:45] LABS: GLUCOMETER DEV NAME(LOC) ICU.S6; GLUCOSE,POINT OF CARE 147 MG/DL (70-110)
[2024-07-10 12:46] LABS: O2 DEVICE,BLOOD GAS VENTILATOR (ROOM AIR); PEEP,BG 5 cm H2O; SITE, BLOOD GAS ARTERIAL LINE; VENT MODE, BG Press. Control Vent (ROOM AIR)
[2024-07-10 12:47] LABS: INSIPIRATORY PRESSURE, BG 25 cm H2O; INSPIRATORY TIME, BG 0.95 SEC; SPONTANEOUS VT, BG 300 ml
[2024-07-10 13:45] LABS: APPEARANCE,URINE TURBID (CLEAR); BILIRUBIN,URINE NEGATIVE (NEGATIVE); COLOR,URINE LIGHT YELLOW (YELLOW); GLUCOSE, URINE (UA) NEGATIVE (NEGATIVE); KETONES,URINE NEGATIVE (NEGATIVE); LEUKOCYTE ESTERASE ,URINE LARGE (NEGATIVE); NITRATE,URINE NEGATIVE (NEGATIVE); OCCULT BLOOD,URINE MODERATE (NEGATIVE); PH,URINE 7.5 (5.0-8.0); PROTEIN,URINE 30-70 mg/dL (NEGATIVE); UROBILINOGEN,URINE <=1.0 mg/dL (<=1.0)
[2024-07-10 14:06] LABS: BACTERIA,URINE Moderate /HPF (None Seen); SQUAMOUS EPITHELIAL CELL,UR None Seen /LPF (None Seen); WBC,URINE 26-50 /HPF (0-5); YEAST,URINE Moderate /HPF (None Seen)
[2024-07-10 14:40] LABS: BASOPHILS % (AUTO) 0.6 % (0.0-2.0); EOSINOPHILS % (AUTO) 5.2 % (1.0-6.0); HEMATOCRIT 35.5 % (36-46); HEMOGLOBIN 11.5 g/dL (12.0-16.0); LYMPHOCYTES # (AUTO) 0.9 K/uL (1.0-4.8); LYMPHOCYTES % (AUTO) 4.9 % (22.0-44.0); MEAN CORPUSCULAR HGB CONC 32.3 G/dL (31.0-37.0); MEAN CORPUSCULAR VOLUME 87 fL (80-100); MONOCYTES # (AUTO) 0.8 K/uL (0.1-1.0); MONOCYTES % (AUTO) 4.4 % (2.0-9.0); NEUTROPHILS # (AUTO) 15.2 K/uL (1.8-7.7); NEUTROPHILS % (AUTO) 84.9 % (40.0-70.0); PLATELET COUNT (AUTO) 198 K/uL (150-450); RED BLOOD CELL COUNT(AUTO) 4.09 MIL/uL (4.00-5.20); RED CELL DISTRIBUTION WIDTH 16.9 % (11.5-14.5); WHITE BLOOD COUNT (AUTO) 17.9 K/uL (4.5-11.0)
[2024-07-10 15:12] LABS: ANION GAP 6 mmol/L (8-16); CALCIUM, TOTAL 7.7 mg/dL (8.8-10.5); CARBON DIOXIDE 28 mmol/L (22-29); CHLORIDE 110 mmol/L (98-107); CREATININE 0.47 mg/dL (0.60-1.30); GLOMERULAR FILTR. RATE CALC > 60 mL/min (>60); GLUCOSE,RANDOM 157 mg/dL (70-110); POTASSIUM 3.7 mmol/L (3.5-5.1); SODIUM SERUM 143 mmol/L (136-145); UREA NITROGEN, BLOOD 21 mg/dL (7-18)
[2024-07-10 18:56] LABS: GLUCOMETER DEV NAME(LOC) ICU.S6; GLUCOSE,POINT OF CARE 150 MG/DL (70-110)
[2024-07-11] VITALS (14 sets, daily range): BP systolic 121–146; BP diastolic 42–78; PULSE 61–104; RESP 22–31; TEMP 96.4–98.4; O2SAT 93–100
[2024-07-11 00:26] LABS: GLUCOMETER DEV NAME(LOC) ICUN.5; GLUCOSE,POINT OF CARE 106 MG/DL (70-110)
[2024-07-11 01:10] LABS: GLUCOMETER DEV NAME(LOC) ICU.S6; GLUCOSE,POINT OF CARE 126 MG/DL (70-110)
[2024-07-11 05:36] LABS: GLUCOMETER DEV NAME(LOC) ICUN.5; GLUCOSE,POINT OF CARE 93 MG/DL (70-110)
[2024-07-11 06:10] LABS: BASOPHILS % (AUTO) 0.2 % (0.0-2.0); EOSINOPHILS % (AUTO) 5.7 % (1.0-6.0); HEMATOCRIT 32.3 % (36-46); LYMPHOCYTES % (AUTO) 4.3 % (22.0-44.0); MEAN CORPUSCULAR HEMOGLOBIN 28.9 pg (26.0-34.0); MEAN CORPUSCULAR HGB CONC 34.1 G/dL (31.0-37.0); MEAN CORPUSCULAR VOLUME 85 fL (80-100); MONOCYTES # (AUTO) 1.2 K/uL (0.1-1.0); MONOCYTES % (AUTO) 5.3 % (2.0-9.0); NEUTROPHILS # (AUTO) 19.8 K/uL (1.8-7.7); NEUTROPHILS % (AUTO) 84.5 % (40.0-70.0); PLATELET COUNT (AUTO) 205 K/uL (150-450); RED BLOOD CELL COUNT(AUTO) 3.81 MIL/uL (4.00-5.20); RED CELL DISTRIBUTION WIDTH 16.1 % (11.5-14.5); WHITE BLOOD COUNT (AUTO) 23.4 K/uL (4.5-11.0)
[2024-07-11 06:23] LABS: ANION GAP 5 mmol/L (8-16); CARBON DIOXIDE 27 mmol/L (22-29); CHLORIDE 109 mmol/L (98-107); CREATININE 0.46 mg/dL (0.60-1.30); GLUCOSE,RANDOM 105 mg/dL (70-110); SODIUM SERUM 141 mmol/L (136-145); UREA NITROGEN, BLOOD 16 mg/dL (7-18)
[2024-07-11 06:24] LABS: ALANINE AMINOTRANSFERASE 27 U/L (12-78); ALBUMIN 1.2 g/dL (3.4-5.0); ALKALINE PHOSPHATASE 109 U/L (46-116); ASPARTATE AMINOTRANSFERASE 24 U/L (15-37); BILIRUBIN,TOTAL 0.5 mg/dL (0.1-1.0); CALCIUM, TOTAL 7.5 mg/dL (8.8-10.5); GLOMERULAR FILTR. RATE CALC > 60 mL/min (>60); TOTAL PROTEIN, SERUM 4.9 g/dL (6.4-8.2)
[2024-07-11 06:36] LABS: POTASSIUM 2.6 mmol/L (3.5-5.1)
[2024-07-11] MEDS ORDERED: POTASSIUM CHL 10 MEQ/WATER 50 ML IV SCH (08:45)
[2024-07-11] MEDS: HYDROCORTISONE SOD SUCC 100 MG/2 ML VIAL IVP SCH (10:50)
[2024-07-11] MEDS: POTASSIUM CHL 10 MEQ/WATER 50 ML IV SCH (10:50)
[2024-07-11 11:40] LABS: GLUCOMETER DEV NAME(LOC) ICU.S6; GLUCOSE,POINT OF CARE 84 MG/DL (70-110)
[2024-07-11] MEDS: DEXMEDETOMIDINE 400 MCG/NS 100 ML IV PRN (11:48)
[2024-07-11 16:54] LABS: POTASSIUM 3.1 mmol/L (3.5-5.1)
[2024-07-11] MEDS: LABETALOL HCL 5 MG/ML 20 ML VIAL IVP SCH (17:15)
[2024-07-11] MEDS: AMPICILLIN SODIUM/SULBACTAM NA 3 GM in SODIUM CHLORIDE 0.9% 100 ML IV SCH (17:44)
[2024-07-11 19:11] LABS: GLUCOMETER DEV NAME(LOC) ICUN.5; GLUCOSE,POINT OF CARE 103 MG/DL (70-110)
[2024-07-11] MEDS ORDERED: SODIUM CHLORIDE 0.9% 250 ML IV ONE (19:15)
[2024-07-11 21:10] LABS: GLUCOMETER DEV NAME(LOC) ICUN.5; GLUCOSE,POINT OF CARE 109 MG/DL (70-110)
[2024-07-12] VITALS (17 sets, daily range): BP systolic 98–171; BP diastolic 43–61; PULSE 72–101; RESP 22–35; TEMP 96.8–97.9; O2SAT 92–100
[2024-07-12 00:05] LABS: GLUCOMETER DEV NAME(LOC) ICU.S6; GLUCOSE,POINT OF CARE 136 MG/DL (70-110)
[2024-07-12 06:17] LABS: BASOPHILS % (AUTO) 0.4 % (0.0-2.0); HEMATOCRIT 32.5 % (36-46); HEMOGLOBIN 10.6 g/dL (12.0-16.0); LYMPHOCYTES % (AUTO) 4.5 % (22.0-44.0); MEAN CORPUSCULAR HEMOGLOBIN 27.7 pg (26.0-34.0); MEAN CORPUSCULAR HGB CONC 32.6 G/dL (31.0-37.0); MEAN CORPUSCULAR VOLUME 85 fL (80-100); MONOCYTES # (AUTO) 0.9 K/uL (0.1-1.0); NEUTROPHILS # (AUTO) 19.2 K/uL (1.8-7.7); PLATELET COUNT (AUTO) 190 K/uL (150-450); RED BLOOD CELL COUNT(AUTO) 3.82 MIL/uL (4.00-5.20); RED CELL DISTRIBUTION WIDTH 16.4 % (11.5-14.5); WHITE BLOOD COUNT (AUTO) 22.1 K/uL (4.5-11.0)
[2024-07-12 06:23] LABS: NEUTROPHILS % (AUTO) 87.1 % (40.0-70.0)
[2024-07-12 06:40] LABS: GLUCOMETER DEV NAME(LOC) ICUN.5; GLUCOSE,POINT OF CARE 124 MG/DL (70-110)
[2024-07-12 06:47] LABS: ANION GAP 6 mmol/L (8-16); CALCIUM, TOTAL 7.9 mg/dL (8.8-10.5); CARBON DIOXIDE 27 mmol/L (22-29); CHLORIDE 108 mmol/L (98-107); CREATININE 0.47 mg/dL (0.60-1.30); GLOMERULAR FILTR. RATE CALC > 60 mL/min (>60); GLUCOSE,RANDOM 134 mg/dL (70-110); POTASSIUM 3.6 mmol/L (3.5-5.1); SODIUM SERUM 141 mmol/L (136-145); UREA NITROGEN, BLOOD 15 mg/dL (7-18)
[2024-07-12] MEDS: AMINO ACIDS/PROTEIN HYDROLYS 30 ML LIQUID TUBE NG SCH (09:48)
[2024-07-12] MEDS: MULTIVITAMINS, THERAPEUTIC 15 ML UDCUP NG SCH (09:49)
[2024-07-12] MEDS: SCOPOLAMINE HYDROBROMIDE 1 MG/72 HOUR PATCH TD ONE (11:09)
[2024-07-12] MEDS: MAGNESIUM SULFATE 2 GM/WATER 50 ML IV ONE (11:12)
[2024-07-12] MEDS: POTASSIUM CHLORIDE 10% 40 MEQ/30 ML LIQUID UDCUP NG ONE (12:46)
[2024-07-12 12:51] LABS: GLUCOMETER DEV NAME(LOC) ICU.S6; GLUCOSE,POINT OF CARE 157 MG/DL (70-110)
[2024-07-12] MEDS: BUMETANIDE 0.25 MG/ML 4 ML VIAL IVP SCH (13:59)
[2024-07-12] MEDS: HYDROCODONE/ACETAMINOPHEN 5-325 MG TABLET NG PRN (13:59)
[2024-07-12] MEDS: ALPRAZolam 0.25 MG TABLET NG SCH (16:27)
[2024-07-12 20:11] LABS: GLUCOMETER DEV NAME(LOC) ICU.S6; GLUCOSE,POINT OF CARE 196 MG/DL (70-110)
[2024-07-13] VITALS (13 sets, daily range): BP systolic 130–181; BP diastolic 47–61; PULSE 53–103; RESP 22–39; TEMP 95.5–98; O2SAT 89–98
[2024-07-13 00:41] LABS: GLUCOMETER DEV NAME(LOC) ICUN.5; GLUCOSE,POINT OF CARE 151 MG/DL (70-110)
[2024-07-13] MEDS ORDERED: SODIUM CHLORIDE 0.9% 500 ML IV ONE (02:16)
[2024-07-13 06:10] LABS: BASOPHILS % (AUTO) 0.7 % (0.0-2.0); EOSINOPHILS % (AUTO) 3.6 % (1.0-6.0); HEMATOCRIT 30.1 % (36-46); HEMOGLOBIN 10.1 g/dL (12.0-16.0); LYMPHOCYTES # (AUTO) 1.1 K/uL (1.0-4.8); LYMPHOCYTES % (AUTO) 4.3 % (22.0-44.0); MEAN CORPUSCULAR HEMOGLOBIN 28.5 pg (26.0-34.0); MEAN CORPUSCULAR HGB CONC 33.7 G/dL (31.0-37.0); MEAN CORPUSCULAR VOLUME 85 fL (80-100); MONOCYTES # (AUTO) 0.8 K/uL (0.1-1.0); MONOCYTES % (AUTO) 3.2 % (2.0-9.0); NEUTROPHILS # (AUTO) 22.2 K/uL (1.8-7.7); PLATELET COUNT (AUTO) 236 K/uL (150-450); RED BLOOD CELL COUNT(AUTO) 3.56 MIL/uL (4.00-5.20); RED CELL DISTRIBUTION WIDTH 16.9 % (11.5-14.5); WHITE BLOOD COUNT (AUTO) 25.2 K/uL (4.5-11.0)
[2024-07-13 06:11] LABS: NEUTROPHILS % (AUTO) 88.2 % (40.0-70.0)
[2024-07-13 06:28] LABS: ALANINE AMINOTRANSFERASE 20 U/L (12-78); ALBUMIN 1.3 g/dL (3.4-5.0); ALKALINE PHOSPHATASE 135 U/L (46-116); ANION GAP 4 mmol/L (8-16); ASPARTATE AMINOTRANSFERASE 17 U/L (15-37); BILIRUBIN,TOTAL 0.4 mg/dL (0.1-1.0); CALCIUM, TOTAL 7.9 mg/dL (8.8-10.5); CARBON DIOXIDE 30 mmol/L (22-29); CHLORIDE 109 mmol/L (98-107); CREATININE 0.52 mg/dL (0.60-1.30); GLOMERULAR FILTR. RATE CALC > 60 mL/min (>60); GLUCOSE,RANDOM 116 mg/dL (70-110); POTASSIUM 3.1 mmol/L (3.5-5.1); SODIUM SERUM 143 mmol/L (136-145); TOTAL PROTEIN, SERUM 5.8 g/dL (6.4-8.2); UREA NITROGEN, BLOOD 14 mg/dL (7-18)
[2024-07-13 07:01] LABS: GLUCOMETER DEV NAME(LOC) ICUN.5; GLUCOSE,POINT OF CARE 152 MG/DL (70-110)
[2024-07-13 07:01] LABS: GLUCOMETER DEV NAME(LOC) ICU.S6; GLUCOSE,POINT OF CARE 107 MG/DL (70-110)
[2024-07-13] MEDS: METOPROLOL TARTRATE 25 MG TABLET PO SCH (08:29)
[2024-07-13] MEDS: NOREPINEPHRINE 8 MG/0.9 % NACL 250 ML IV PRN (10:40)
[2024-07-13] MEDS: ALBUMIN HUMAN 25%-12.5GM/50ML 50 ML IV SCH (10:48)
[2024-07-13 13:26] LABS: GLUCOMETER DEV NAME(LOC) ICU.S6; GLUCOSE,POINT OF CARE 144 MG/DL (70-110)
[2024-07-13] MEDS: FLUCONAZOLE 200 MG/NACL ISOOSM 100 ML IV SCH (21:06)
[2024-07-14] VITALS (10 sets, daily range): BP systolic 120–176; BP diastolic 45–76; PULSE 52–108; RESP 22–33; TEMP 94.6–98.7; O2SAT 93–98
[2024-07-14] MEDS ORDERED: SODIUM CHLORIDE 0.9% 250 ML IV ONE (02:15)
[2024-07-14 05:01] LABS: GLUCOMETER DEV NAME(LOC) ICUN.5; GLUCOSE,POINT OF CARE 166 MG/DL (70-110)
[2024-07-14 05:46] LABS: GLUCOMETER DEV NAME(LOC) ICUN.5; GLUCOSE,POINT OF CARE 183 MG/DL (70-110)
[2024-07-14 05:50] LABS: GLUCOMETER DEV NAME(LOC) ICU.S6; GLUCOSE,POINT OF CARE 182 MG/DL (70-110)
[2024-07-14 05:51] LABS: GLUCOMETER DEV NAME(LOC) ICU.S6; GLUCOSE,POINT OF CARE 177 MG/DL (70-110)
[2024-07-14 06:53] LABS: BASOPHILS % (AUTO) 0.5 % (0.0-2.0); EOSINOPHILS % (AUTO) 3.1 % (1.0-6.0); HEMATOCRIT 27.4 % (36-46); HEMOGLOBIN 9.1 g/dL (12.0-16.0); LYMPHOCYTES # (AUTO) 1.3 K/uL (1.0-4.8); LYMPHOCYTES % (AUTO) 9.6 % (22.0-44.0); MEAN CORPUSCULAR HEMOGLOBIN 28.5 pg (26.0-34.0); MEAN CORPUSCULAR HGB CONC 33.3 G/dL (31.0-37.0); MEAN CORPUSCULAR VOLUME 86 fL (80-100); MONOCYTES # (AUTO) 0.4 K/uL (0.1-1.0); MONOCYTES % (AUTO) 3.2 % (2.0-9.0); NEUTROPHILS # (AUTO) 11.7 K/uL (1.8-7.7); NEUTROPHILS % (AUTO) 83.6 % (40.0-70.0); PLATELET COUNT (AUTO) 216 K/uL (150-450); RED BLOOD CELL COUNT(AUTO) 3.21 MIL/uL (4.00-5.20); RED CELL DISTRIBUTION WIDTH 17.2 % (11.5-14.5)
[2024-07-14] MEDS: POTASSIUM CHLORIDE 10% 40 MEQ/30 ML LIQUID UDCUP NG SCH (06:58)
[2024-07-14 07:04] LABS: ANION GAP 6 mmol/L (8-16); CALCIUM, TOTAL 8.2 mg/dL (8.8-10.5); CARBON DIOXIDE 32 mmol/L (22-29); CHLORIDE 110 mmol/L (98-107); CREATININE 0.48 mg/dL (0.60-1.30); GLOMERULAR FILTR. RATE CALC > 60 mL/min (>60); GLUCOSE,RANDOM 189 mg/dL (70-110); PHOSPHORUS 3.1 mg/dL (2.5-4.9); POTASSIUM 3.2 mmol/L (3.5-5.1); SODIUM SERUM 148 mmol/L (136-145); UREA NITROGEN, BLOOD 20 mg/dL (7-18)
[2024-07-14 16:35] LABS: GLUCOMETER DEV NAME(LOC) ICU.S6; GLUCOSE,POINT OF CARE 193 MG/DL (70-110)
[2024-07-14 17:55] LABS: GLUCOMETER DEV NAME(LOC) ICUN.5; GLUCOSE,POINT OF CARE 143 MG/DL (70-110)
== END 2024-07-14 17:45 | DRG 3 ==
LOC: EMS 11:11 → EDH 12:57 → ICU 14:40
PROVIDERS: ADMIT Internal Medicine; ATTEND Internal Medicine
PROC: 5A1955Z Respiratory Ventilation, Greater than 96 Consecutive Hours (ICD-10-PCS; principal; 2024-06-15)
PROC: 0BH18EZ Insertion of Endotracheal Airway into Trachea, Via Natural or Artificial Opening Endoscopic (ICD-10-PCS; 2024-06-15)
PROC: 06HY33Z Insertion of Infusion Device into Lower Vein, Percutaneous Approach (ICD-10-PCS; 2024-06-15)
PROC: B54BZZA Ultrasonography of Right Lower Extremity Veins, Guidance (ICD-10-PCS; 2024-06-15)
PROC: 5A09357 Assistance with Respiratory Ventilation, Less than 24 Consecutive Hours, Continuous Positive Airway Pressure (ICD-10-PCS; 2024-06-15)
PROC: 03HY32Z Insertion of Monitoring Device into Upper Artery, Percutaneous Approach (ICD-10-PCS; 2024-06-16)
PROC: 0W9900Z Drainage of Right Pleural Cavity with Drainage Device, Open Approach (ICD-10-PCS; 2024-06-24)
PROC: 0DJ08ZZ Inspection of Upper Intestinal Tract, Via Natural or Artificial Opening Endoscopic (ICD-10-PCS; 2024-06-29)
PROC: 30233N1 Transfusion of Nonautologous Red Blood Cells into Peripheral Vein, Percutaneous Approach (ICD-10-PCS; 2024-06-30)
PROC: 0B5N4ZZ Destruction of Right Pleura, Percutaneous Endoscopic Approach (ICD-10-PCS; 2024-07-09)
PROC: 0BND4ZZ Release Right Middle Lung Lobe, Percutaneous Endoscopic Approach (ICD-10-PCS; 2024-07-09)
PROC: 0B113F4 Bypass Trachea to Cutaneous with Tracheostomy Device, Percutaneous Approach (ICD-10-PCS; 2024-07-09)
PROC: 0BNK4ZZ Release Right Lung, Percutaneous Endoscopic Approach (ICD-10-PCS; 2024-07-09)
PROC: 0BQK4ZZ Repair Right Lung, Percutaneous Endoscopic Approach (ICD-10-PCS; 2024-07-09)
DX: A40.0 Sepsis due to streptococcus, group A (principal); Z20.822 Contact with and (suspected) exposure to COVID-19; E11.10 Type 2 diabetes mellitus with ketoacidosis without coma; J86.0 Pyothorax with fistula; R65.21 Severe sepsis with septic shock; N17.0 Acute kidney failure with tubular necrosis; G93.41 Metabolic encephalopathy; J10.08 Influenza due to other identified influenza virus with other specified pneumonia; J15.4 Pneumonia due to other streptococci; K25.4 Chronic or unspecified gastric ulcer with hemorrhage; J80 Acute respiratory distress syndrome; J93.82 Other air leak; E87.0 Hyperosmolality and hypernatremia; B37.49 Other urogenital candidiasis; J91.8 Pleural effusion in other conditions classified elsewhere; Z99.11 Dependence on respirator [ventilator] status; I10 Essential (primary) hypertension; E87.6 Hypokalemia; E05.90 Thyrotoxicosis, unspecified without thyrotoxic crisis or storm; D69.6 Thrombocytopenia, unspecified; E03.9 Hypothyroidism, unspecified; E83.42 Hypomagnesemia; D64.89 Other specified anemias; E78.00 Pure hypercholesterolemia, unspecified; E83.51 Hypocalcemia; E11.65 Type 2 diabetes mellitus with hyperglycemia; E80.6 Other disorders of bilirubin metabolism; D63.8 Anemia in other chronic diseases classified elsewhere; E88.09 Other disorders of plasma-protein metabolism, not elsewhere classified; Z79.899 Other long term (current) drug therapy; Z90.710 Acquired absence of both cervix and uterus; Z79.4 Long term (current) use of insulin
CPT/HCPCS: 0241U; 36245; 36569; 36600; 70450; 71045; 71250; 74018; 74176; 76705; 76770; 76937; 80048; 80053; 80076; 80202; 81001; 81002; 82009; 82010; 82040; 82271; 82330; 82533; 82570; 82805; 82962; 83036; 83516; 83605; 83615; 83690; 83735; 83880; 84100; 84132; 84145; 84295; 84300; 84436; 84439; 84443; 84484; 85014; 85018; 85025; 85379; 85610; 85730; 86171; 86225; 86256; 86738; 86850; 86900; 86901; 86923; 87015; 87040; 87070; 87075; 87077; 87081; 87086; 87101; 87205; 87206; 87252; 87305; 87324; 87449; 87635; 87804; 87899; 88108; 88305; 88307; 93005; 93306; 93970; 94002; 94003; 94640; 94660; 99291; G0238; J0295; J0360; J0456; J0692; J0696; J0712; J1120; J1450; J1644; J1720; J1815; J1940; J1956; J2185; J2250; J2354; J2370; J2405; J2470; J2704; J3010; J3370; J3475; J3480; J3490; J7030; J7040; J7050; J7060; J7120; P9016; P9046; P9047; 36415-L1; 36415-TC; 82803-TC; J7613; X7700; Z7610